=== PATIENT | male | born 1960 | race Caucasian/White ===

== ENCOUNTER 2017-04-15 17:19 | Inpatient (IN) | payer BC ==
[~2017-04-15] VITALS: Ht 175.3 cm; Wt 55.8 kg
[2017-04-15 16:30] VITALS: BP 117/72
[2017-04-15] MEDS ORDERED: IPRATROPIUM/ALBUTEROL 0.5-3(2.5)MG/3ML NEB HHN PRN (17:45)
[2017-04-15 18:00] VITALS: BP 141/78
[2017-04-15] MEDS: LABETALOL 5MG/ML SYR 20 MG/4 ML SYRINGE IV SCH ×2 (18:30→23:33)
[2017-04-15 20:00] VITALS: BP 142/74
[2017-04-15] MEDS: IPRATROPIUM/ALBUTEROL 0.5-3(2.5)MG/3ML NEB HHN SCH (20:50)
[2017-04-15 22:00] VITALS: BP 151/82
[2017-04-15 22:08] LABS: PROTHROMBIN TIME 10.7 sec (9.4-11.6)
[2017-04-15 22:13] LABS: HEMATOCRIT 25.6 % (42.0-52.0); HEMOGLOBIN 8.4 g/dL (14.0-18.0); MEAN CORPUSCULAR HEMOGLOBIN 30.5 pg (28.0-32.0); MEAN CORPUSCULAR VOLUME 92.6 fL (80.0-94.0); PLATELET 241 x1000/uL (130-400); RED BLOOD CELL COUNT 2.76 mill/uL (4.7-6.1)
[2017-04-15] MEDS: LACTATED RINGERS 1,000 ML IV SCH (22:24)
[2017-04-15 22:30] LABS: CARBON DIOXIDE 34 mEq/L (21-32); CHLORIDE 109 mEq/L (98-107)
[2017-04-16] VITALS (49 sets, daily range): BP systolic 123–215; BP diastolic 56–121
[2017-04-16] MEDS: IPRATROPIUM/ALBUTEROL 0.5-3(2.5)MG/3ML NEB HHN SCH ×4 (02:19→20:20)
[2017-04-16] MEDS: HYDRALAZINE 20MG/ML VIAL IV PRN ×4 (03:26→20:17)
[2017-04-16] MEDS: LABETALOL 5MG/ML SYR 20 MG/4 ML SYRINGE IV SCH ×4 (06:24→23:56)
[2017-04-16] MEDS ORDERED: LIDOCAINE HCL 1%/EPI 1:200,000 30 ML VIAL ONE (08:15)
[2017-04-16] MEDS ORDERED: GELATIN SPONGE,ABSORBABLE SZ 100 ONE (08:16)
[2017-04-16] MEDS ORDERED: BACITRACIN ZINC 15GM TUBE TOP ONE (08:16)
[2017-04-16] MEDS ORDERED: THROMBIN (BOVINE) 5000 UNITS/VIAL TOP ONE (08:17)
[2017-04-16] MEDS ORDERED: LACTATED RINGERS 3,000 ML IV ONE (08:17)
[2017-04-16] MEDS ORDERED: NORMAL SALINE 0.9% 10 ML SYR ONE (08:17)
[2017-04-16] MEDS ORDERED: BACITRACIN 50,000 UNITS/VIAL ONE (08:17)
[2017-04-16] MEDS: PANTOPRAZOLE SODIUM 40 MG/VIAL IV SCH (09:37)
[2017-04-16 10:26] LABS: CLARITY URINE CLEAR (CLEAR); COLOR URINE YELLOW (YELLOW); KETONES URINE NEGATIVE (NEGATIVE); LEUKOCYTE ESTERASE URINE NEGATIVE (NEGATIVE); NITRITE URINE NEGATIVE (NEGATIVE); OCCULT BLOOD URINE NEGATIVE (NEGATIVE); PH URINE 7.5 (4.5-8.0); PROTEIN URINE 2+ (NEGATIVE); SPECIFIC GRAVITY URINE 1.016 (1.005-1.030); UROBILINOGEN URINE 0.2 E.U./dL (0.2-1.0)
[2017-04-16] MEDS ORDERED: ONDANSETRON HCL 4MG/2ML VIAL IV PRN (10:45)
[2017-04-16] MEDS ORDERED: FENTANYL CITRATE/PF 50MCG/ML 5ML VIAL ONE (11:02)
[2017-04-16] MEDS ORDERED: MIDAZOLAM HCL 2 MG/2 ML VIAL ONE (11:03)
[2017-04-16 11:09] LABS: BG BASE EXCESS 7.9 mmol/L (-2.0-2.0); BG CARBOXYHEMOGLOBIN 0.3 % (0.5-1.5); BG DEOXYHEMOGLOBIN 4.5 % (0.0-5.0); BG FRACTION INSPIRED OXYGEN 35; BG HCO3 ACT 32.3 mmol/L (22.0-26.0); BG METHEMOGLOBIN 0.2 % (0.0-1.5); BG OXYGEN SATURATION 95.5 % (92.0-98.5); BG PCO2 44.8 mmHg (35.0-45.0); BG PH 7.476 (7.350-7.450); BG PO2 79.3 mmHg (75.0-100.0); BG PRESSURE SUPPORT 14; BG SAMPLE SITE LEFT BRACHIAL; BG TIDAL VOLUME(mL) 500 mL; BG VENT MODE VENT - SIMV; BG VENT RATE 10 set
[2017-04-16] MEDS ORDERED: PHENYTOIN SODIUM 250MG/5ML VIAL IV ONE (11:58)
[2017-04-16] MEDS ORDERED: CEFAZOLIN SODIUM 1000MG/VIAL ONE (12:18)
[2017-04-16] MEDS ORDERED: ROCURONIUM BROMIDE 10MG/ML VIAL 5ML IV ONE (12:18)
[2017-04-16] MEDS ORDERED: PROPOFOL 200MG/20ML VIAL IV ONE ×2 (12:49→14:00)
[2017-04-16] MEDS ORDERED: NICARDIPINE 50 MG in SODIUM CHLORIDE 0.9% 230 ML IV PRN (13:30)
[2017-04-16] MEDS ORDERED: MORPHINE SULFATE 2 MG/ML CPJ (NOT FOR IM USE) IV PRN ×3 (13:30→15:45)
[2017-04-16] MEDS ORDERED: CEFAZOLIN SODIUM 1000MG/VIAL IV SCH (14:00)
[2017-04-16] MEDS: PHENYTOIN SODIUM 100MG/2ML VIAL IV SCH ×2 (14:15→21:22)
[2017-04-16] MEDS: NICARDIPINE 100 MG in SODIUM CHLORIDE 0.9% 60 ML IV PRN ×2 (14:20→20:28)
[2017-04-16] MEDS: LACTATED RINGERS 1,000 ML IV SCH (14:33)
[2017-04-16 14:50] LABS: GLUCOSE CSF 56 mg/dL (41-75)
[2017-04-16] MEDS: LABETALOL 5MG/ML SYR 20 MG/4 ML SYRINGE IV NR ×2 (16:28→18:13)
[2017-04-16] MEDS: MORPHINE SULFATE 2 MG/ML CPJ (NOT FOR IM USE) IV PRN ×2 (17:53→21:21)
[2017-04-16] MEDS: MICONAZOLE NITRATE 2% OINT 71GM TOP SCH (21:21)
[2017-04-16] MEDS: CEFAZOLIN 1000MG PREMIX 50 ML IV SCH (21:22)
[2017-04-17] VITALS (69 sets, daily range): BP systolic 104–179; BP diastolic 58–89
[2017-04-17] MEDS: IPRATROPIUM/ALBUTEROL 0.5-3(2.5)MG/3ML NEB HHN SCH ×4 (00:20→21:49)
[2017-04-17] MEDS: HYDRALAZINE 20MG/ML VIAL IV PRN ×4 (01:48→16:49)
[2017-04-17] MEDS: MORPHINE SULFATE 2 MG/ML CPJ (NOT FOR IM USE) IV PRN ×5 (02:33→19:56)
[2017-04-17] MEDS: NICARDIPINE 100 MG in SODIUM CHLORIDE 0.9% 60 ML IV PRN ×3 (05:00→23:12)
[2017-04-17] MEDS: CEFAZOLIN 1000MG PREMIX 50 ML IV SCH ×3 (05:03→21:53)
[2017-04-17] MEDS: PHENYTOIN SODIUM 100MG/2ML VIAL IV SCH ×3 (05:03→21:53)
[2017-04-17] MEDS: LABETALOL 5MG/ML SYR 20 MG/4 ML SYRINGE IV SCH (05:04)
[2017-04-17 05:47] LABS: BASOPHILS % 0.5 % (0.0-2.0); EOSINOPHILS % 0.3 % (0.0-5.0); HEMATOCRIT. 29.1 % (42.0-52.0); HEMOGLOBIN. 9.5 g/dL (14.0-18.0); LYMPHOCYTES % 8.3 % (20.0-50.0); MEAN CORPUSCULAR HEMOGLOBIN 30.4 pg (28.0-32.0); MEAN CORPUSCULAR VOLUME 93.2 fL (80.0-94.0); MEAN PLATELET VOLUME 10.3 fl (7.4-10.4); MONOCYTES % 5.4 % (2.0-8.0); NEUTROPHILS % 85.5 % (40.0-76.0); PLATELET 271 x1000/uL (130-400); RED BLOOD CELL COUNT 3.12 mill/uL (4.7-6.1); RED CELL DISTRIBUTION WIDTH 15.2 % (11.6-14.6)
[2017-04-17 06:12] LABS: CARBON DIOXIDE 30 mEq/L (21-32); CHLORIDE 109 mEq/L (98-107); TOTAL IRON BINDING CAPACITY 211 ug/dL (250-450)
[2017-04-17 07:36] LABS: BG BASE EXCESS 2.3 mmol/L (-2.0-2.0); BG CARBOXYHEMOGLOBIN 0.2 % (0.5-1.5); BG DEOXYHEMOGLOBIN 5.8 % (0.0-5.0); BG FRACTION INSPIRED OXYGEN 35; BG HCO3 ACT 27.1 mmol/L (22.0-26.0); BG METHEMOGLOBIN 0.3 % (0.0-1.5); BG OXYGEN SATURATION 94.2 % (92.0-98.5); BG OXYHEMOGLOBIN 93.7 % (94.0-97.0); BG PH 7.418 (7.350-7.450); BG PO2 75.9 mmHg (75.0-100.0); BG SAMPLE SITE A-LINE; BG TIDAL VOLUME(mL) 500 mL; BG TOTAL HEMOGLOBIN 10.3 g/dL (12.0-18.0); BG VENT MODE VENT - A/C; BG VENT RATE 12 set
[2017-04-17] MEDS: MICONAZOLE NITRATE 2% OINT 71GM TOP SCH ×2 (08:16→21:59)
[2017-04-17] MEDS: PANTOPRAZOLE SODIUM 40 MG/VIAL IV SCH (08:16)
[2017-04-17] MEDS: LACTATED RINGERS 1,000 ML IV SCH ×2 (08:17→16:29)
[2017-04-17] MEDS: AMLODIPINE 10MG TABLET PO SCH (10:58)
[2017-04-17] MEDS: LABETALOL HCL 300MG TABLET PO SCH ×2 (11:56→21:53)
[2017-04-17] MEDS: HYDRALAZINE HCL 25MG TABLET PO SCH ×2 (13:30→22:39)
[2017-04-17] MEDS ORDERED: NICARDIPINE 100 MG in SODIUM CHLORIDE 0.9% 60 ML IV PRN (16:30)
[2017-04-17] MEDS: MINOXIDIL 2.5MG TABLET PEG SCH (17:12)
[2017-04-17] MEDS ORDERED: PHENYTOIN SODIUM 500 MG in SODIUM CHLORIDE 0.9% 50 ML IV NR (19:00)
[2017-04-18] VITALS (96 sets, daily range): BP systolic 115–171; BP diastolic 60–117
[2017-04-18] MEDS: MINOXIDIL 2.5MG TABLET PEG SCH ×4 (00:28→18:29)
[2017-04-18] MEDS: MORPHINE SULFATE 2 MG/ML CPJ (NOT FOR IM USE) IV PRN ×3 (00:32→10:54)
[2017-04-18] MEDS: HYDRALAZINE 20MG/ML VIAL IV PRN ×3 (02:05→21:11)
[2017-04-18] MEDS: IPRATROPIUM/ALBUTEROL 0.5-3(2.5)MG/3ML NEB HHN SCH ×4 (03:50→20:08)
[2017-04-18] MEDS: PHENYTOIN SODIUM 100MG/2ML VIAL IV SCH ×3 (05:16→21:11)
[2017-04-18] MEDS: CEFAZOLIN 1000MG PREMIX 50 ML IV SCH ×2 (05:17→13:09)
[2017-04-18 05:35] LABS: HEMOGLOBIN. 9.2 g/dL (14.0-18.0); MEAN CORPUSCULAR HEMOGLOBIN 30.5 pg (28.0-32.0); MEAN CORPUSCULAR VOLUME 93.1 fL (80.0-94.0); MEAN PLATELET VOLUME 9.9 fl (7.4-10.4); PLATELET 312 x1000/uL (130-400); RED BLOOD CELL COUNT 3.01 mill/uL (4.7-6.1); RED CELL DISTRIBUTION WIDTH 15.3 % (11.6-14.6)
[2017-04-18] MEDS: LACTATED RINGERS 1,000 ML IV SCH (05:38)
[2017-04-18] MEDS: HYDRALAZINE HCL 25MG TABLET PO SCH (05:39)
[2017-04-18 05:53] LABS: CARBON DIOXIDE 30 mEq/L (21-32); CHLORIDE 110 mEq/L (98-107)
[2017-04-18] MEDS: PANTOPRAZOLE SODIUM 40 MG/VIAL IV SCH (08:00)
[2017-04-18] MEDS: AMLODIPINE 10MG TABLET PO SCH (08:00)
[2017-04-18] MEDS: LABETALOL HCL 300MG TABLET PO SCH (08:01)
[2017-04-18] MEDS: MICONAZOLE NITRATE 2% OINT 71GM TOP SCH ×2 (08:02→21:14)
[2017-04-18 09:01] LABS: BG CARBOXYHEMOGLOBIN 0.2 % (0.5-1.5); BG DEOXYHEMOGLOBIN 2.1 % (0.0-5.0); BG HCO3 ACT 31.8 mmol/L (22.0-26.0); BG METHEMOGLOBIN 0.1 % (0.0-1.5); BG OXYGEN SATURATION 97.9 % (92.0-98.5); BG OXYHEMOGLOBIN 97.6 % (94.0-97.0); BG PCO2 46.8 mmHg (35.0-45.0); BG PO2 116.1 mmHg (75.0-100.0); BG SAMPLE SITE RIGHT RADIAL; BG TIDAL VOLUME(mL) 500 mL; BG TOTAL HEMOGLOBIN 9.9 g/dL (12.0-18.0); BG VENT MODE VENT - SIMV; BG VENT RATE 10 set
[2017-04-18] MEDS: NICARDIPINE 100 MG in SODIUM CHLORIDE 0.9% 60 ML IV PRN ×2 (11:18→23:31)
[2017-04-18 11:36] LABS: PLATELET ESTIMATE NORMAL
[2017-04-18] MEDS: HYDRALAZINE HCL 50MG TABLET PEG SCH ×2 (13:09→18:29)
[2017-04-18] MEDS ORDERED: ASPI-1159 GT (14:04)
[2017-04-18] MEDS ORDERED: HJ10 SUBCUT (14:04)
[2017-04-18] MEDS ORDERED: HYDR-4134 GT (14:04)
[2017-04-18] MEDS ORDERED: IPRA0.2S51 IH (14:04)
[2017-04-18] MEDS ORDERED: ATOR-2 GT (14:04)
[2017-04-18] MEDS ORDERED: LABE100T GT (14:04)
[2017-04-18] MEDS ORDERED: FERR-63 GT (14:04)
[2017-04-18] MEDS ORDERED: LEVE500T19 GT (14:04)
[2017-04-18] MEDS ORDERED: CLON0.3T GT (14:04)
[2017-04-18] MEDS ORDERED: ASCO500C6 GT (14:04)
[2017-04-18] MEDS ORDERED: LORA1TAB GT (14:07)
[2017-04-18] MEDS ORDERED: NYST30PO9 TP (14:20)
[2017-04-18] MEDS ORDERED: MELA3TAB GT (14:20)
[2017-04-18] MEDS ORDERED: ONDA4SOL2 IVP (14:20)
[2017-04-18] MEDS ORDERED: PANT40TA4 IVP (14:20)
[2017-04-18] MEDS ORDERED: QUET200T GT (14:20)
[2017-04-18] MEDS ORDERED: MINO2.5T19 GT (14:20)
[2017-04-18] MEDS ORDERED: MULT-1146 PO (14:20)
[2017-04-18] MEDS ORDERED: TAMS0.4C31 GT (14:26)
[2017-04-18] MEDS ORDERED: RISP1TAB26 GT (14:26)
[2017-04-18] MEDS ORDERED: ZNOU TOP (14:26)
[2017-04-18] MEDS ORDERED: VANC125C11 GT (14:26)
[2017-04-18] MEDS ORDERED: HYDRALAZINE HCL 50MG TABLET PEG SCH (18:00)
[2017-04-18] MEDS: ACETAMINOPHEN 650MG/20.3ML UDC PO PRN (18:30)
[2017-04-18] MEDS: LABETALOL HCL 300MG TABLET PEG SCH (18:30)
[2017-04-19] VITALS (97 sets, daily range): BP systolic 127–171; BP diastolic 62–84
[2017-04-19] MEDS: LABETALOL HCL 300MG TABLET PEG SCH ×2 (00:19→06:04)
[2017-04-19] MEDS: MINOXIDIL 2.5MG TABLET PEG SCH ×5 (00:19→23:42)
[2017-04-19] MEDS: HYDRALAZINE HCL 50MG TABLET PEG SCH ×5 (00:32→23:42)
[2017-04-19] MEDS: MORPHINE SULFATE 2 MG/ML CPJ (NOT FOR IM USE) IV PRN ×3 (00:48→13:47)
[2017-04-19] MEDS: IPRATROPIUM/ALBUTEROL 0.5-3(2.5)MG/3ML NEB HHN SCH ×4 (01:43→20:17)
[2017-04-19] MEDS: HYDRALAZINE 20MG/ML VIAL IV PRN ×2 (03:22→09:53)
[2017-04-19 05:17] LABS: EOSINOPHILS % 0.3 % (0.0-5.0); HEMATOCRIT. 26.7 % (42.0-52.0); HEMOGLOBIN. 8.7 g/dL (14.0-18.0); LYMPHOCYTES % 10.6 % (20.0-50.0); MEAN CORPUSCULAR HEMOGLOBIN 30.8 pg (28.0-32.0); MEAN CORPUSCULAR VOLUME 94.2 fL (80.0-94.0); MONOCYTES % 5.3 % (2.0-8.0); NEUTROPHILS % 82.8 % (40.0-76.0); PLATELET 279 x1000/uL (130-400); RED BLOOD CELL COUNT 2.84 mill/uL (4.7-6.1); RED CELL DISTRIBUTION WIDTH 15.5 % (11.6-14.6)
[2017-04-19] MEDS: PHENYTOIN SODIUM 100MG/2ML VIAL IV SCH (06:04)
[2017-04-19 06:05] LABS: CARBON DIOXIDE 30 mEq/L (21-32); CHLORIDE 110 mEq/L (98-107)
[2017-04-19] MEDS: LACTATED RINGERS 1,000 ML IV SCH (06:17)
[2017-04-19] MEDS: PANTOPRAZOLE SODIUM 40 MG/VIAL IV SCH (08:18)
[2017-04-19] MEDS: AMLODIPINE 10MG TABLET PO SCH (08:19)
[2017-04-19] MEDS: MICONAZOLE NITRATE 2% OINT 71GM TOP SCH ×2 (08:23→21:30)
[2017-04-19] MEDS: ACETAMINOPHEN 650MG/20.3ML UDC PO PRN (09:53)
[2017-04-19] MEDS: LABETALOL HCL 200MG TABLET PEG SCH ×3 (12:04→23:41)
[2017-04-19] MEDS: NICARDIPINE 100 MG in SODIUM CHLORIDE 0.9% 60 ML IV PRN (12:26)
[2017-04-19] MEDS ORDERED: POTASSIUM CHLORIDE 20MEQ/PACKET GT NR (14:10)
[2017-04-19] MEDS: PHENYTOIN 100 MG/4 ML UDC GT SCH ×2 (14:58→21:29)
[2017-04-19] MEDS ORDERED: TERAZOSIN HCL 1MG CAPSULE PO SCH (21:00)
[2017-04-20] VITALS (90 sets, daily range): BP systolic 116–185; BP diastolic 63–92
[2017-04-20] MEDS: NICARDIPINE 100 MG in SODIUM CHLORIDE 0.9% 60 ML IV PRN ×2 (01:04→19:41)
[2017-04-20] MEDS: IPRATROPIUM/ALBUTEROL 0.5-3(2.5)MG/3ML NEB HHN SCH ×4 (01:41→20:23)
[2017-04-20] MEDS: LACTATED RINGERS 1,000 ML IV SCH (03:13)
[2017-04-20 05:22] LABS: BASOPHILS % 0.4 % (0.0-2.0); EOSINOPHILS % 0.8 % (0.0-5.0); HEMATOCRIT. 26.9 % (42.0-52.0); HEMOGLOBIN. 8.7 g/dL (14.0-18.0); LYMPHOCYTES % 11.5 % (20.0-50.0); MEAN CORPUSCULAR HEMOGLOBIN 30.5 pg (28.0-32.0); MEAN CORPUSCULAR VOLUME 94.6 fL (80.0-94.0); MEAN PLATELET VOLUME 9.6 fl (7.4-10.4); MONOCYTES % 6.5 % (2.0-8.0); NEUTROPHILS % 80.8 % (40.0-76.0); PLATELET 271 x1000/uL (130-400); RED BLOOD CELL COUNT 2.85 mill/uL (4.7-6.1); RED CELL DISTRIBUTION WIDTH 15.6 % (11.6-14.6)
[2017-04-20] MEDS: LABETALOL HCL 200MG TABLET PEG SCH ×3 (05:28→18:07)
[2017-04-20] MEDS: PHENYTOIN 100 MG/4 ML UDC GT SCH ×3 (05:28→22:34)
[2017-04-20] MEDS: MINOXIDIL 2.5MG TABLET PEG SCH ×3 (05:28→18:08)
[2017-04-20] MEDS: HYDRALAZINE HCL 50MG TABLET PEG SCH ×3 (05:28→18:07)
[2017-04-20 05:48] LABS: CARBON DIOXIDE 33 mEq/L (21-32); CHLORIDE 110 mEq/L (98-107)
[2017-04-20] MEDS: MICONAZOLE NITRATE 2% OINT 71GM TOP SCH ×2 (09:40→22:34)
[2017-04-20] MEDS: AMLODIPINE 10MG TABLET PO SCH (09:41)
[2017-04-20] MEDS: PANTOPRAZOLE SODIUM 40 MG/VIAL IV SCH (09:42)
[2017-04-20] MEDS: HYDRALAZINE 20MG/ML VIAL IV PRN (15:13)
[2017-04-20] MEDS ORDERED: THROAT LOZENGES-BENZOCAINE/MENTH/CETYLPYRD CL LOZENGES MM PRN (17:15)
[2017-04-20] MEDS: TERAZOSIN HCL 1MG CAPSULE PO SCH (18:07)
[2017-04-20] MEDS: CLONIDINE HCL 0.3MG/24HR PATCH TD SCH (18:08)
[2017-04-21] VITALS (98 sets, daily range): BP systolic 124–200; BP diastolic 62–97
[2017-04-21] MEDS: MINOXIDIL 2.5MG TABLET PEG SCH ×4 (00:39→21:07)
[2017-04-21] MEDS: LABETALOL HCL 200MG TABLET PEG SCH ×5 (00:39→23:12)
[2017-04-21] MEDS: HYDRALAZINE HCL 50MG TABLET PEG SCH ×5 (00:42→23:11)
[2017-04-21] MEDS: IPRATROPIUM/ALBUTEROL 0.5-3(2.5)MG/3ML NEB HHN SCH ×4 (01:38→20:27)
[2017-04-21] MEDS: HYDRALAZINE 20MG/ML VIAL IV PRN (03:22)
[2017-04-21] MEDS: NICARDIPINE 100 MG in SODIUM CHLORIDE 0.9% 60 ML IV PRN (04:41)
[2017-04-21] MEDS: TERAZOSIN HCL 1MG CAPSULE PO SCH ×2 (05:11→17:29)
[2017-04-21] MEDS: PHENYTOIN 100 MG/4 ML UDC GT SCH ×3 (05:12→21:07)
[2017-04-21 05:53] LABS: BASOPHILS % 0.4 % (0.0-2.0); EOSINOPHILS % 1.2 % (0.0-5.0); HEMOGLOBIN. 8.7 g/dL (14.0-18.0); LYMPHOCYTES % 13.7 % (20.0-50.0); MEAN CORPUSCULAR HEMOGLOBIN 30.2 pg (28.0-32.0); MEAN CORPUSCULAR VOLUME 93.3 fL (80.0-94.0); MEAN PLATELET VOLUME 9.5 fl (7.4-10.4); MONOCYTES % 5.9 % (2.0-8.0); NEUTROPHILS % 78.8 % (40.0-76.0); PLATELET 276 x1000/uL (130-400); RED BLOOD CELL COUNT 2.89 mill/uL (4.7-6.1); RED CELL DISTRIBUTION WIDTH 15.2 % (11.6-14.6)
[2017-04-21 06:27] LABS: CARBON DIOXIDE 33 mEq/L (21-32); CHLORIDE 109 mEq/L (98-107)
[2017-04-21] MEDS: ACETAMINOPHEN 650MG/20.3ML UDC PO PRN (08:12)
[2017-04-21] MEDS: PANTOPRAZOLE SODIUM 40 MG/VIAL IV SCH (08:12)
[2017-04-21] MEDS: MAGNESIUM HYDROXIDE 400MG/5ML 30ML UDC PO PRN (08:12)
[2017-04-21] MEDS: AMLODIPINE 10MG TABLET PO SCH (08:13)
[2017-04-21] MEDS: MICONAZOLE NITRATE 2% OINT 71GM TOP SCH ×2 (08:13→21:09)
[2017-04-21] MEDS ORDERED: SPIRONOLACTONE 25MG TABLET GT NR (17:00)
[2017-04-21] MEDS ORDERED: HYDROCHLOROTHIAZIDE 25MG TABLET GT NR (18:00)
[2017-04-22] VITALS (92 sets, daily range): BP systolic 123–176; BP diastolic 23–96
[2017-04-22] MEDS: NICARDIPINE 100 MG in SODIUM CHLORIDE 0.9% 60 ML IV PRN ×2 (00:15→12:01)
[2017-04-22] MEDS: PHENYTOIN 100 MG/4 ML UDC GT SCH ×3 (05:11→21:19)
[2017-04-22] MEDS: MINOXIDIL 2.5MG TABLET PEG SCH ×2 (05:11→14:17)
[2017-04-22] MEDS: HYDRALAZINE HCL 50MG TABLET PEG SCH ×3 (05:12→17:14)
[2017-04-22] MEDS: TERAZOSIN HCL 1MG CAPSULE PO SCH ×2 (05:12→17:13)
[2017-04-22] MEDS: LABETALOL HCL 200MG TABLET PEG SCH ×3 (05:12→17:14)
[2017-04-22 06:22] LABS: BASOPHILS % 0.7 % (0.0-2.0); EOSINOPHILS % 2.1 % (0.0-5.0); HEMATOCRIT. 26.5 % (42.0-52.0); HEMOGLOBIN. 8.7 g/dL (14.0-18.0); LYMPHOCYTES % 14.9 % (20.0-50.0); MEAN CORPUSCULAR HEMOGLOBIN 30.6 pg (28.0-32.0); MEAN CORPUSCULAR VOLUME 93.9 fL (80.0-94.0); MEAN PLATELET VOLUME 9.7 fl (7.4-10.4); MONOCYTES % 6.3 % (2.0-8.0); PLATELET 272 x1000/uL (130-400); RED BLOOD CELL COUNT 2.83 mill/uL (4.7-6.1); RED CELL DISTRIBUTION WIDTH 15.6 % (11.6-14.6)
[2017-04-22 06:46] LABS: CARBON DIOXIDE 35 mEq/L (21-32); CHLORIDE 106 mEq/L (98-107)
[2017-04-22] MEDS: IPRATROPIUM/ALBUTEROL 0.5-3(2.5)MG/3ML NEB HHN SCH ×3 (08:02→20:30)
[2017-04-22] MEDS: AMLODIPINE 10MG TABLET PO SCH (09:00)
[2017-04-22] MEDS: FAMOTIDINE 20MG TABLET PO SCH ×2 (09:00→21:19)
[2017-04-22] MEDS: SPIRONOLACTONE 25MG TABLET PO SCH (09:00)
[2017-04-22] MEDS: MICONAZOLE NITRATE 2% OINT 71GM TOP SCH ×2 (09:00→21:18)
[2017-04-22] MEDS: HYDROCHLOROTHIAZIDE 25MG TABLET PO SCH (09:05)
[2017-04-22] MEDS: HYDRALAZINE 20MG/ML VIAL IV PRN ×2 (10:07→15:16)
[2017-04-22] MEDS ORDERED: MINOXIDIL 2.5MG TABLET PEG SCH (18:00)
[2017-04-22] MEDS ORDERED: TERAZOSIN HCL 1MG CAPSULE PO SCH (18:00)
[2017-04-23] VITALS (75 sets, daily range): BP systolic 121–181; BP diastolic 66–95
[2017-04-23] MEDS: MINOXIDIL 2.5MG TABLET PEG SCH ×5 (00:30→23:53)
[2017-04-23] MEDS: LABETALOL HCL 200MG TABLET PEG SCH ×5 (00:31→23:53)
[2017-04-23] MEDS: HYDRALAZINE HCL 50MG TABLET PEG SCH ×5 (00:31→23:53)
[2017-04-23] MEDS: NICARDIPINE 100 MG in SODIUM CHLORIDE 0.9% 60 ML IV PRN (02:02)
[2017-04-23] MEDS: IPRATROPIUM/ALBUTEROL 0.5-3(2.5)MG/3ML NEB HHN SCH ×4 (02:09→19:50)
[2017-04-23] MEDS: PHENYTOIN 100 MG/4 ML UDC GT SCH ×3 (05:15→21:18)
[2017-04-23 05:55] LABS: BASOPHILS % 0.8 % (0.0-2.0); EOSINOPHILS % 1.7 % (0.0-5.0); HEMATOCRIT. 26.1 % (42.0-52.0); HEMOGLOBIN. 8.7 g/dL (14.0-18.0); LYMPHOCYTES % 14.1 % (20.0-50.0); MEAN CORPUSCULAR HEMOGLOBIN 30.8 pg (28.0-32.0); MEAN CORPUSCULAR VOLUME 92.5 fL (80.0-94.0); MEAN PLATELET VOLUME 9.7 fl (7.4-10.4); NEUTROPHILS % 76.4 % (40.0-76.0); PLATELET 246 x1000/uL (130-400); RED BLOOD CELL COUNT 2.82 mill/uL (4.7-6.1); RED CELL DISTRIBUTION WIDTH 15.8 % (11.6-14.6)
[2017-04-23] MEDS ORDERED: TERAZOSIN HCL 1MG CAPSULE PO SCH (06:00)
[2017-04-23 06:34] LABS: CARBON DIOXIDE 35 mEq/L (21-32); CHLORIDE 103 mEq/L (98-107)
[2017-04-23] MEDS: HYDROCHLOROTHIAZIDE 25MG TABLET PO SCH (08:57)
[2017-04-23] MEDS: AMLODIPINE 10MG TABLET PO SCH (08:57)
[2017-04-23] MEDS: SPIRONOLACTONE 25MG TABLET PO SCH (08:57)
[2017-04-23] MEDS: FAMOTIDINE 20MG TABLET PO SCH ×2 (08:57→21:18)
[2017-04-23] MEDS: MICONAZOLE NITRATE 2% OINT 71GM TOP SCH ×2 (09:00→21:18)
[2017-04-23] MEDS: HYDRALAZINE 20MG/ML VIAL IV PRN ×2 (10:19→14:21)
[2017-04-23] MEDS: TERAZOSIN HCL 1MG CAPSULE PO SCH ×2 (17:31→23:54)
[2017-04-24] VITALS (46 sets, daily range): BP systolic 109–176; BP diastolic 58–106
[2017-04-24] MEDS: HYDRALAZINE 20MG/ML VIAL IV PRN (04:04)
[2017-04-24] MEDS: TERAZOSIN HCL 1MG CAPSULE PO SCH ×4 (05:04→23:19)
[2017-04-24] MEDS: MINOXIDIL 2.5MG TABLET PEG SCH ×4 (05:05→23:18)
[2017-04-24] MEDS: HYDRALAZINE HCL 50MG TABLET PEG SCH ×4 (05:05→23:19)
[2017-04-24] MEDS: PHENYTOIN 100 MG/4 ML UDC GT SCH ×3 (05:05→21:05)
[2017-04-24] MEDS: LABETALOL HCL 200MG TABLET PEG SCH ×4 (05:05→23:18)
[2017-04-24 05:29] LABS: BASOPHILS % 0.8 % (0.0-2.0); HEMATOCRIT. 26.1 % (42.0-52.0); HEMOGLOBIN. 8.6 g/dL (14.0-18.0); LYMPHOCYTES % 10.7 % (20.0-50.0); MEAN CORPUSCULAR HEMOGLOBIN 30.8 pg (28.0-32.0); MEAN CORPUSCULAR VOLUME 93.4 fL (80.0-94.0); MEAN PLATELET VOLUME 9.4 fl (7.4-10.4); MONOCYTES % 5.8 % (2.0-8.0); NEUTROPHILS % 81.7 % (40.0-76.0); PLATELET 225 x1000/uL (130-400); RED BLOOD CELL COUNT 2.79 mill/uL (4.7-6.1); RED CELL DISTRIBUTION WIDTH 15.5 % (11.6-14.6)
[2017-04-24 05:44] LABS: CARBON DIOXIDE 35 mEq/L (21-32); CHLORIDE 103 mEq/L (98-107)
[2017-04-24] MEDS: IPRATROPIUM/ALBUTEROL 0.5-3(2.5)MG/3ML NEB HHN SCH ×3 (08:21→19:47)
[2017-04-24] MEDS: AMLODIPINE 10MG TABLET PO SCH (08:58)
[2017-04-24] MEDS: FAMOTIDINE 20MG TABLET PO SCH ×2 (08:58→21:05)
[2017-04-24] MEDS: SPIRONOLACTONE 25MG TABLET PO SCH (08:59)
[2017-04-24] MEDS: HYDROCHLOROTHIAZIDE 25MG TABLET PO SCH (08:59)
[2017-04-24] MEDS: MICONAZOLE NITRATE 2% OINT 71GM TOP SCH ×2 (09:02→21:00)
[2017-04-24] MEDS: ACETAMINOPHEN 650MG/20.3ML UDC PO PRN (11:39)
[2017-04-25] VITALS (33 sets, daily range): BP systolic 116–171; BP diastolic 62–93
[2017-04-25] MEDS: IPRATROPIUM/ALBUTEROL 0.5-3(2.5)MG/3ML NEB HHN SCH ×3 (01:54→20:03)
[2017-04-25] MEDS: PHENYTOIN 100 MG/4 ML UDC GT SCH ×3 (05:20→21:22)
[2017-04-25] MEDS: MINOXIDIL 2.5MG TABLET PEG SCH ×3 (05:21→18:16)
[2017-04-25] MEDS: TERAZOSIN HCL 1MG CAPSULE PO SCH ×3 (05:21→18:17)
[2017-04-25] MEDS: LABETALOL HCL 200MG TABLET PEG SCH ×3 (05:21→18:17)
[2017-04-25] MEDS: HYDRALAZINE HCL 50MG TABLET PEG SCH ×3 (05:21→18:16)
[2017-04-25 05:28] LABS: EOSINOPHILS % 2.4 % (0.0-5.0); HEMATOCRIT. 25.3 % (42.0-52.0); HEMOGLOBIN. 8.2 g/dL (14.0-18.0); LYMPHOCYTES % 19.9 % (20.0-50.0); MEAN CORPUSCULAR HEMOGLOBIN 30.8 pg (28.0-32.0); MEAN CORPUSCULAR VOLUME 94.5 fL (80.0-94.0); MEAN PLATELET VOLUME 9.9 fl (7.4-10.4); NEUTROPHILS % 68.7 % (40.0-76.0); PLATELET 218 x1000/uL (130-400); RED BLOOD CELL COUNT 2.67 mill/uL (4.7-6.1); RED CELL DISTRIBUTION WIDTH 16.6 % (11.6-14.6)
[2017-04-25 05:42] LABS: CARBON DIOXIDE 35 mEq/L (21-32); CHLORIDE 105 mEq/L (98-107)
[2017-04-25] MEDS: SPIRONOLACTONE 25MG TABLET PO SCH (10:03)
[2017-04-25] MEDS: HYDROCHLOROTHIAZIDE 25MG TABLET PO SCH (10:03)
[2017-04-25] MEDS: FAMOTIDINE 20MG TABLET PO SCH ×2 (10:04→21:23)
[2017-04-25] MEDS: AMLODIPINE 10MG TABLET PO SCH (10:04)
[2017-04-25] MEDS: MICONAZOLE NITRATE 2% OINT 71GM TOP SCH ×2 (13:21→21:22)
[2017-04-26] VITALS (14 sets, daily range): BP systolic 117–163; BP diastolic 59–85
[2017-04-26] MEDS: MINOXIDIL 2.5MG TABLET PEG SCH ×4 (00:11→17:25)
[2017-04-26] MEDS: TERAZOSIN HCL 1MG CAPSULE PO SCH ×4 (00:11→17:26)
[2017-04-26] MEDS: LABETALOL HCL 200MG TABLET PEG SCH ×4 (00:13→17:26)
[2017-04-26] MEDS: HYDRALAZINE HCL 50MG TABLET PEG SCH ×4 (00:14→17:25)
[2017-04-26] MEDS: ACETAMINOPHEN 650MG/20.3ML UDC PO PRN (01:11)
[2017-04-26] MEDS: IPRATROPIUM/ALBUTEROL 0.5-3(2.5)MG/3ML NEB HHN SCH ×3 (01:54→13:39)
[2017-04-26] MEDS: PHENYTOIN 100 MG/4 ML UDC GT SCH ×2 (06:27→13:15)
[2017-04-26] MEDS: AMLODIPINE 10MG TABLET PO SCH (08:36)
[2017-04-26] MEDS: FAMOTIDINE 20MG TABLET PO SCH ×2 (08:36→21:16)
[2017-04-26] MEDS: HYDROCHLOROTHIAZIDE 25MG TABLET PO SCH (08:36)
[2017-04-26] MEDS: MICONAZOLE NITRATE 2% OINT 71GM TOP SCH ×2 (08:37→21:17)
[2017-04-26] MEDS: SPIRONOLACTONE 25MG TABLET PO SCH (08:37)
[2017-04-26 14:53] LABS: BG BASE EXCESS 8.8 mmol/L (-2.0-2.0); BG CARBOXYHEMOGLOBIN 0.3 % (0.5-1.5); BG DEOXYHEMOGLOBIN 1.4 % (0.0-5.0); BG FRACTION INSPIRED OXYGEN 35; BG HCO3 ACT 34.4 mmol/L (22.0-26.0); BG METHEMOGLOBIN 0.3 % (0.0-1.5); BG OXYGEN SATURATION 98.6 % (92.0-98.5); BG PCO2 53.9 mmHg (35.0-45.0); BG PH 7.423 (7.350-7.450); BG PO2 144.8 mmHg (75.0-100.0); BG PRESSURE SUPPORT 12; BG SAMPLE SITE RIGHT RADIAL; BG TIDAL VOLUME(mL) 500 mL; BG TOTAL HEMOGLOBIN 9.1 g/dL (12.0-18.0); BG VENT MODE VENT - SIMV; BG VENT RATE 8 set
[2017-04-26] MEDS: ALBUTEROL (0.083%) 2.5MG/3ML NEB HHN SCH ×2 (16:18→20:30)
[2017-04-26] MEDS ORDERED: PHENYTOIN 100 MG/4 ML UDC NG NR (17:45)
[2017-04-26] MEDS ORDERED: LORAZEPAM 2MG/ML CPJ IV PRN (17:45)
[2017-04-27] VITALS (12 sets, daily range): BP systolic 132–178; BP diastolic 64–90
[2017-04-27] MEDS: MINOXIDIL 2.5MG TABLET PEG SCH ×4 (00:02→17:14)
[2017-04-27] MEDS: LABETALOL HCL 200MG TABLET PEG SCH ×4 (00:03→17:13)
[2017-04-27] MEDS: TERAZOSIN HCL 1MG CAPSULE PO SCH ×2 (00:03→05:36)
[2017-04-27] MEDS: HYDRALAZINE HCL 50MG TABLET PEG SCH ×4 (00:03→17:13)
[2017-04-27] MEDS: ALBUTEROL (0.083%) 2.5MG/3ML NEB HHN SCH ×6 (00:20→20:41)
[2017-04-27 06:12] LABS: BASOPHILS % 0.9 % (0.0-2.0); EOSINOPHILS % 2.2 % (0.0-5.0); HEMATOCRIT. 26.7 % (42.0-52.0); HEMOGLOBIN. 8.8 g/dL (14.0-18.0); LYMPHOCYTES % 21.5 % (20.0-50.0); MEAN CORPUSCULAR HEMOGLOBIN 30.9 pg (28.0-32.0); MEAN CORPUSCULAR VOLUME 94.2 fL (80.0-94.0); MEAN PLATELET VOLUME 9.8 fl (7.4-10.4); MONOCYTES % 9.8 % (2.0-8.0); NEUTROPHILS % 65.6 % (40.0-76.0); PLATELET 191 x1000/uL (130-400); RED BLOOD CELL COUNT 2.84 mill/uL (4.7-6.1); RED CELL DISTRIBUTION WIDTH 16.1 % (11.6-14.6)
[2017-04-27 06:35] LABS: CARBON DIOXIDE 37 mEq/L (21-32); CHLORIDE 104 mEq/L (98-107)
[2017-04-27 08:27] LABS: BG BASE EXCESS 11.7 mmol/L (-2.0-2.0); BG CARBOXYHEMOGLOBIN 0.3 % (0.5-1.5); BG DEOXYHEMOGLOBIN 1.5 % (0.0-5.0); BG FRACTION INSPIRED OXYGEN 35; BG HCO3 ACT 37.3 mmol/L (22.0-26.0); BG METHEMOGLOBIN 0.2 % (0.0-1.5); BG OXYGEN SATURATION 98.5 % (92.0-98.5); BG PCO2 55.5 mmHg (35.0-45.0); BG PH 7.445 (7.350-7.450); BG PO2 142.7 mmHg (75.0-100.0); BG PRESSURE SUPPORT 12; BG SAMPLE SITE RIGHT RADIAL; BG TIDAL VOLUME(mL) 500 mL; BG TOTAL HEMOGLOBIN 9.1 g/dL (12.0-18.0); BG VENT MODE VENT - SIMV; BG VENT RATE 8 set
[2017-04-27] MEDS: PHENYTOIN 100 MG/4 ML UDC GT SCH ×2 (08:58→17:13)
[2017-04-27] MEDS: HYDROCHLOROTHIAZIDE 25MG TABLET PO SCH (08:59)
[2017-04-27] MEDS: FAMOTIDINE 20MG TABLET PO SCH ×2 (08:59→21:36)
[2017-04-27] MEDS: AMLODIPINE 10MG TABLET PO SCH (08:59)
[2017-04-27] MEDS: SPIRONOLACTONE 25MG TABLET PO SCH (08:59)
[2017-04-27] MEDS: CLONIDINE HCL 0.3MG/24HR PATCH TD SCH (09:05)
[2017-04-27] MEDS: TERAZOSIN HCL 1MG CAPSULE PEG SCH ×2 (12:48→17:13)
[2017-04-27] MEDS: MICONAZOLE NITRATE 2% OINT 71GM TOP SCH ×2 (15:25→21:36)
[2017-04-28] VITALS (15 sets, daily range): BP systolic 112–163; BP diastolic 55–81
[2017-04-28] MEDS: HYDRALAZINE HCL 50MG TABLET PEG SCH ×4 (00:51→17:14)
[2017-04-28] MEDS: LABETALOL HCL 200MG TABLET PEG SCH ×4 (00:52→17:13)
[2017-04-28] MEDS: MINOXIDIL 2.5MG TABLET PEG SCH ×4 (00:52→17:13)
[2017-04-28] MEDS: TERAZOSIN HCL 1MG CAPSULE PEG SCH ×4 (00:55→17:13)
[2017-04-28] MEDS: ALBUTEROL (0.083%) 2.5MG/3ML NEB HHN SCH ×7 (00:57→23:28)
[2017-04-28] MEDS: ACETAMINOPHEN 650MG/20.3ML UDC PO PRN ×2 (01:10→23:23)
[2017-04-28 06:54] LABS: BASOPHILS % 0.7 % (0.0-2.0); EOSINOPHILS % 1.5 % (0.0-5.0); HEMOGLOBIN. 8.3 g/dL (14.0-18.0); LYMPHOCYTES % 16.2 % (20.0-50.0); MEAN CORPUSCULAR HEMOGLOBIN 31.3 pg (28.0-32.0); MEAN CORPUSCULAR VOLUME 93.9 fL (80.0-94.0); MEAN PLATELET VOLUME 9.4 fl (7.4-10.4); MONOCYTES % 9.8 % (2.0-8.0); NEUTROPHILS % 71.8 % (40.0-76.0); PLATELET 176 x1000/uL (130-400); RED BLOOD CELL COUNT 2.66 mill/uL (4.7-6.1); RED CELL DISTRIBUTION WIDTH 15.9 % (11.6-14.6)
[2017-04-28 07:49] LABS: CARBON DIOXIDE 38 mEq/L (21-32); CHLORIDE 106 mEq/L (98-107)
[2017-04-28] MEDS: PHENYTOIN 100 MG/4 ML UDC GT SCH ×2 (08:59→17:12)
[2017-04-28] MEDS: HYDROCHLOROTHIAZIDE 25MG TABLET PO SCH (08:59)
[2017-04-28] MEDS: SPIRONOLACTONE 25MG TABLET PO SCH (08:59)
[2017-04-28] MEDS: FAMOTIDINE 20MG TABLET PO SCH ×2 (09:00→21:07)
[2017-04-28] MEDS: AMLODIPINE 10MG TABLET PO SCH (09:00)
[2017-04-28] MEDS: MICONAZOLE NITRATE 2% OINT 71GM TOP SCH ×2 (09:00→21:07)
[2017-04-28 10:16] LABS: BG BASE EXCESS 13.4 mmol/L (-2.0-2.0); BG CARBOXYHEMOGLOBIN 0.3 % (0.5-1.5); BG DEOXYHEMOGLOBIN 1.8 % (0.0-5.0); BG FRACTION INSPIRED OXYGEN 35; BG HCO3 ACT 39.4 mmol/L (22.0-26.0); BG METHEMOGLOBIN 0.1 % (0.0-1.5); BG OXYGEN SATURATION 98.2 % (92.0-98.5); BG OXYHEMOGLOBIN 97.8 % (94.0-97.0); BG PCO2 58.9 mmHg (35.0-45.0); BG PH 7.443 (7.350-7.450); BG PO2 133.6 mmHg (75.0-100.0); BG PRESSURE SUPPORT 10; BG SAMPLE SITE RIGHT RADIAL; BG TIDAL VOLUME(mL) 500 mL; BG TOTAL HEMOGLOBIN 9.7 g/dL (12.0-18.0); BG VENT MODE VENT - SIMV; BG VENT RATE 6 set
[2017-04-29] VITALS (12 sets, daily range): BP systolic 113–161; BP diastolic 51–83
[2017-04-29] MEDS: MINOXIDIL 2.5MG TABLET PEG SCH ×4 (01:10→18:10)
[2017-04-29] MEDS: LABETALOL HCL 200MG TABLET PEG SCH ×4 (01:10→18:11)
[2017-04-29] MEDS: HYDRALAZINE HCL 50MG TABLET PEG SCH ×4 (01:10→18:10)
[2017-04-29] MEDS: TERAZOSIN HCL 1MG CAPSULE PEG SCH ×4 (01:11→18:10)
[2017-04-29] MEDS: ALBUTEROL (0.083%) 2.5MG/3ML NEB HHN SCH ×5 (03:36→20:17)
[2017-04-29] MEDS: ACETAMINOPHEN 650MG/20.3ML UDC PO PRN ×2 (05:40→13:08)
[2017-04-29 06:45] LABS: BASOPHILS % 1.1 % (0.0-2.0); EOSINOPHILS % 1.4 % (0.0-5.0); HEMATOCRIT. 26.5 % (42.0-52.0); HEMOGLOBIN. 8.7 g/dL (14.0-18.0); MEAN CORPUSCULAR HEMOGLOBIN 31.5 pg (28.0-32.0); MEAN CORPUSCULAR VOLUME 95.3 fL (80.0-94.0); MEAN PLATELET VOLUME 9.7 fl (7.4-10.4); MONOCYTES % 9.6 % (2.0-8.0); NEUTROPHILS % 69.9 % (40.0-76.0); PLATELET 173 x1000/uL (130-400); RED BLOOD CELL COUNT 2.78 mill/uL (4.7-6.1); RED CELL DISTRIBUTION WIDTH 16.5 % (11.6-14.6)
[2017-04-29 08:02] LABS: CARBON DIOXIDE 38 mEq/L (21-32); CHLORIDE 105 mEq/L (98-107)
[2017-04-29] MEDS: AMLODIPINE 10MG TABLET PO SCH (09:16)
[2017-04-29] MEDS: SPIRONOLACTONE 25MG TABLET PO SCH (09:17)
[2017-04-29] MEDS: HYDROCHLOROTHIAZIDE 25MG TABLET PO SCH (09:17)
[2017-04-29] MEDS: MICONAZOLE NITRATE 2% OINT 71GM TOP SCH ×2 (09:17→21:24)
[2017-04-29] MEDS: FAMOTIDINE 20MG TABLET PO SCH ×2 (09:17→21:22)
[2017-04-29] MEDS: PHENYTOIN 100 MG/4 ML UDC GT SCH ×2 (09:23→18:10)
[2017-04-30] VITALS (12 sets, daily range): BP systolic 137–165; BP diastolic 68–83
[2017-04-30] MEDS: ALBUTEROL (0.083%) 2.5MG/3ML NEB HHN SCH ×6 (00:25→20:50)
[2017-04-30] MEDS: TERAZOSIN HCL 1MG CAPSULE PEG SCH ×5 (00:35→23:41)
[2017-04-30] MEDS: HYDRALAZINE HCL 50MG TABLET PEG SCH ×5 (00:35→23:41)
[2017-04-30] MEDS: MINOXIDIL 2.5MG TABLET PEG SCH ×5 (00:36→23:40)
[2017-04-30] MEDS: LABETALOL HCL 200MG TABLET PEG SCH ×5 (06:18→23:41)
[2017-04-30 07:10] LABS: CARBON DIOXIDE 37 mEq/L (21-32); CHLORIDE 105 mEq/L (98-107)
[2017-04-30 07:39] LABS: EOSINOPHILS % 2.3 % (0.0-5.0); HEMATOCRIT. 26.2 % (42.0-52.0); HEMOGLOBIN. 8.6 g/dL (14.0-18.0); LYMPHOCYTES % 18.9 % (20.0-50.0); MEAN CORPUSCULAR HEMOGLOBIN 30.8 pg (28.0-32.0); MEAN CORPUSCULAR VOLUME 94.4 fL (80.0-94.0); MEAN PLATELET VOLUME 9.5 fl (7.4-10.4); NEUTROPHILS % 69.8 % (40.0-76.0); PLATELET 161 x1000/uL (130-400); RED BLOOD CELL COUNT 2.78 mill/uL (4.7-6.1)
[2017-04-30 08:50] LABS: BG BASE EXCESS 11.6 mmol/L (-2.0-2.0); BG CARBOXYHEMOGLOBIN 0.3 % (0.5-1.5); BG DEOXYHEMOGLOBIN 1.3 % (0.0-5.0); BG FRACTION INSPIRED OXYGEN 35; BG HCO3 ACT 37.6 mmol/L (22.0-26.0); BG METHEMOGLOBIN 0.4 % (0.0-1.5); BG OXYGEN SATURATION 98.7 % (92.0-98.5); BG PCO2 58.4 mmHg (35.0-45.0); BG PH 7.427 (7.350-7.450); BG PO2 147.3 mmHg (75.0-100.0); BG PRESSURE SUPPORT 8; BG SAMPLE SITE RIGHT RADIAL; BG TIDAL VOLUME(mL) 500 mL; BG TOTAL HEMOGLOBIN 9.5 g/dL (12.0-18.0); BG VENT MODE VENT - SIMV; BG VENT RATE 6 set
[2017-04-30] MEDS: FAMOTIDINE 20MG TABLET PO SCH ×2 (08:50→21:50)
[2017-04-30] MEDS: AMLODIPINE 10MG TABLET PO SCH (08:50)
[2017-04-30] MEDS: PHENYTOIN 100 MG/4 ML UDC GT SCH ×2 (08:50→17:44)
[2017-04-30] MEDS: SPIRONOLACTONE 25MG TABLET PO SCH (08:59)
[2017-04-30] MEDS: HYDROCHLOROTHIAZIDE 25MG TABLET PO SCH (09:12)
[2017-04-30] MEDS: MICONAZOLE NITRATE 2% OINT 71GM TOP SCH ×2 (09:12→21:50)
[2017-05-01] VITALS (12 sets, daily range): BP systolic 103–159; BP diastolic 30–80
[2017-05-01] MEDS: ALBUTEROL (0.083%) 2.5MG/3ML NEB HHN SCH ×6 (00:35→20:37)
[2017-05-01] MEDS: HYDRALAZINE HCL 50MG TABLET PEG SCH ×4 (05:00→23:02)
[2017-05-01] MEDS: LABETALOL HCL 200MG TABLET PEG SCH ×4 (05:01→23:03)
[2017-05-01] MEDS: MINOXIDIL 2.5MG TABLET PEG SCH ×4 (05:01→23:04)
[2017-05-01] MEDS: TERAZOSIN HCL 1MG CAPSULE PEG SCH ×4 (05:03→23:03)
[2017-05-01 07:29] LABS: BASOPHILS % 0.8 % (0.0-2.0); CHLORIDE 104 mEq/L (98-107); EOSINOPHILS % 2.3 % (0.0-5.0); HEMATOCRIT. 26.7 % (42.0-52.0); HEMOGLOBIN. 8.7 g/dL (14.0-18.0); LYMPHOCYTES % 16.3 % (20.0-50.0); MEAN CORPUSCULAR HEMOGLOBIN 31.2 pg (28.0-32.0); MEAN CORPUSCULAR VOLUME 95.1 fL (80.0-94.0); MEAN PLATELET VOLUME 9.8 fl (7.4-10.4); MONOCYTES % 9.3 % (2.0-8.0); NEUTROPHILS % 71.3 % (40.0-76.0); PLATELET 161 x1000/uL (130-400); RED CELL DISTRIBUTION WIDTH 16.3 % (11.6-14.6)
[2017-05-01 07:58] LABS: CARBON DIOXIDE 34 mEq/L (21-32)
[2017-05-01] MEDS: PHENYTOIN 100 MG/4 ML UDC GT SCH ×2 (09:08→18:34)
[2017-05-01] MEDS: AMLODIPINE 10MG TABLET PO SCH (09:08)
[2017-05-01] MEDS: SPIRONOLACTONE 25MG TABLET PO SCH (09:08)
[2017-05-01] MEDS: HYDROCHLOROTHIAZIDE 25MG TABLET PO SCH (09:08)
[2017-05-01] MEDS: FAMOTIDINE 20MG TABLET PO SCH ×2 (09:08→21:00)
[2017-05-01] MEDS: ACETAMINOPHEN 650MG/20.3ML UDC PO PRN (12:30)
[2017-05-02] VITALS (14 sets, daily range): BP systolic 106–163; BP diastolic 61–86
[2017-05-02] MEDS: ALBUTEROL (0.083%) 2.5MG/3ML NEB HHN SCH ×6 (00:22→20:15)
[2017-05-02] MEDS: LABETALOL HCL 200MG TABLET PEG SCH ×3 (06:07→17:26)
[2017-05-02] MEDS: HYDRALAZINE HCL 50MG TABLET PEG SCH ×3 (06:08→17:26)
[2017-05-02] MEDS: TERAZOSIN HCL 1MG CAPSULE PEG SCH ×3 (06:08→17:25)
[2017-05-02] MEDS: MINOXIDIL 2.5MG TABLET PEG SCH ×3 (06:08→17:25)
[2017-05-02] MEDS: PHENYTOIN 100 MG/4 ML UDC GT SCH ×2 (10:06→17:26)
[2017-05-02] MEDS: HYDROCHLOROTHIAZIDE 25MG TABLET PO SCH (10:07)
[2017-05-02] MEDS: SPIRONOLACTONE 25MG TABLET PO SCH (10:07)
[2017-05-02] MEDS: FAMOTIDINE 20MG TABLET PO SCH ×2 (10:07→20:55)
[2017-05-02] MEDS: AMLODIPINE 10MG TABLET PO SCH (10:07)
[2017-05-02] MEDS: ACETAMINOPHEN 650MG/20.3ML UDC PO PRN (10:58)
[2017-05-03] VITALS (20 sets, daily range): BP systolic 97–160; BP diastolic 52–83
[2017-05-03] MEDS: ALBUTEROL (0.083%) 2.5MG/3ML NEB HHN SCH ×7 (00:03→23:05)
[2017-05-03] MEDS: LABETALOL HCL 200MG TABLET PEG SCH ×4 (00:57→17:35)
[2017-05-03] MEDS: MINOXIDIL 2.5MG TABLET PEG SCH ×4 (00:57→17:36)
[2017-05-03] MEDS: HYDRALAZINE HCL 50MG TABLET PEG SCH ×4 (00:58→17:37)
[2017-05-03] MEDS: TERAZOSIN HCL 1MG CAPSULE PEG SCH ×4 (01:02→17:35)
[2017-05-03 06:22] LABS: BASOPHILS % 0.6 % (0.0-2.0); EOSINOPHILS % 0.8 % (0.0-5.0); HEMATOCRIT. 27.3 % (42.0-52.0); HEMOGLOBIN. 8.9 g/dL (14.0-18.0); LYMPHOCYTES % 9.9 % (20.0-50.0); MEAN CORPUSCULAR HEMOGLOBIN 30.9 pg (28.0-32.0); MEAN CORPUSCULAR VOLUME 94.4 fL (80.0-94.0); MEAN PLATELET VOLUME 9.4 fl (7.4-10.4); NEUTROPHILS % 83.7 % (40.0-76.0); PLATELET 141 x1000/uL (130-400); RED BLOOD CELL COUNT 2.89 mill/uL (4.7-6.1); RED CELL DISTRIBUTION WIDTH 16.9 % (11.6-14.6)
[2017-05-03 07:04] LABS: CARBON DIOXIDE 36 mEq/L (21-32); CHLORIDE 108 mEq/L (98-107)
[2017-05-03] MEDS: MAGNESIUM HYDROXIDE 400MG/5ML 30ML UDC PO PRN (08:55)
[2017-05-03] MEDS: HYDROCHLOROTHIAZIDE 25MG TABLET PO SCH (08:56)
[2017-05-03] MEDS: SPIRONOLACTONE 25MG TABLET PO SCH (08:56)
[2017-05-03] MEDS: PHENYTOIN 100 MG/4 ML UDC GT SCH ×2 (08:56→17:35)
[2017-05-03] MEDS: FAMOTIDINE 20MG TABLET PO SCH ×2 (08:56→20:20)
[2017-05-03] MEDS: AMLODIPINE 10MG TABLET PO SCH (08:56)
[2017-05-03] MEDS: ACETAMINOPHEN 650MG/20.3ML UDC PO PRN (21:51)
[2017-05-04] VITALS (22 sets, daily range): BP systolic 98–162; BP diastolic 48–83
[2017-05-04] MEDS: TERAZOSIN HCL 1MG CAPSULE PEG SCH ×4 (00:57→17:34)
[2017-05-04] MEDS: LABETALOL HCL 200MG TABLET PEG SCH ×4 (00:57→17:34)
[2017-05-04] MEDS: MINOXIDIL 2.5MG TABLET PEG SCH ×4 (00:57→17:34)
[2017-05-04] MEDS: HYDRALAZINE HCL 50MG TABLET PEG SCH ×4 (00:58→17:34)
[2017-05-04] MEDS: ALBUTEROL (0.083%) 2.5MG/3ML NEB HHN SCH ×5 (03:08→20:28)
[2017-05-04] MEDS: ACETAMINOPHEN 650MG/20.3ML UDC PO PRN ×2 (06:27→21:34)
[2017-05-04] MEDS: HYDROCHLOROTHIAZIDE 25MG TABLET PO SCH (09:15)
[2017-05-04] MEDS: AMLODIPINE 10MG TABLET PO SCH (09:15)
[2017-05-04] MEDS: FAMOTIDINE 20MG TABLET PO SCH ×2 (09:15→21:34)
[2017-05-04] MEDS: SPIRONOLACTONE 25MG TABLET PO SCH (09:24)
[2017-05-04] MEDS: PHENYTOIN 100 MG/4 ML UDC GT SCH ×2 (09:24→17:44)
[2017-05-04] MEDS: CLONIDINE HCL 0.3MG/24HR PATCH TD SCH (11:21)
[2017-05-05] VITALS (12 sets, daily range): BP systolic 110–153; BP diastolic 58–83
[2017-05-05] MEDS: HYDRALAZINE HCL 50MG TABLET PEG SCH ×4 (00:19→18:20)
[2017-05-05] MEDS: MINOXIDIL 2.5MG TABLET PEG SCH ×4 (00:20→18:25)
[2017-05-05] MEDS: LABETALOL HCL 200MG TABLET PEG SCH ×4 (00:20→18:20)
[2017-05-05] MEDS: TERAZOSIN HCL 1MG CAPSULE PEG SCH ×4 (00:20→18:19)
[2017-05-05] MEDS: ALBUTEROL (0.083%) 2.5MG/3ML NEB HHN SCH ×6 (00:22→20:30)
[2017-05-05 05:21] LABS: BASOPHILS % 0.6 % (0.0-2.0); EOSINOPHILS % 2.3 % (0.0-5.0); HEMATOCRIT. 28.1 % (42.0-52.0); HEMOGLOBIN. 9.2 g/dL (14.0-18.0); LYMPHOCYTES % 13.6 % (20.0-50.0); MEAN CORPUSCULAR HEMOGLOBIN 31.6 pg (28.0-32.0); MEAN CORPUSCULAR VOLUME 96.1 fL (80.0-94.0); MEAN PLATELET VOLUME 9.9 fl (7.4-10.4); MONOCYTES % 7.7 % (2.0-8.0); NEUTROPHILS % 75.8 % (40.0-76.0); PLATELET 149 x1000/uL (130-400); RED BLOOD CELL COUNT 2.92 mill/uL (4.7-6.1); RED CELL DISTRIBUTION WIDTH 17.2 % (11.6-14.6)
[2017-05-05 06:50] LABS: CARBON DIOXIDE 34 mEq/L (21-32); CHLORIDE 112 mEq/L (98-107)
[2017-05-05] MEDS: PHENYTOIN 100 MG/4 ML UDC GT SCH ×2 (10:00→18:25)
[2017-05-05] MEDS: SPIRONOLACTONE 25MG TABLET PO SCH (10:00)
[2017-05-05] MEDS: ACETAMINOPHEN 650MG/20.3ML UDC PO PRN (10:01)
[2017-05-05] MEDS: AMLODIPINE 10MG TABLET PO SCH (10:01)
[2017-05-05] MEDS: HYDROCHLOROTHIAZIDE 25MG TABLET PO SCH (10:01)
[2017-05-05] MEDS: FAMOTIDINE 20MG TABLET PO SCH ×2 (10:01→20:41)
[2017-05-05] MEDS ORDERED: POTASSIUM CHLORIDE 20MEQ/PACKET PEG NR (10:30)
[2017-05-05] MEDS ORDERED: POTASSIUM CHLORIDE 20MEQ TABLET SR PO ONE (10:30)
[2017-05-06] VITALS (13 sets, daily range): BP systolic 123–167; BP diastolic 69–87
[2017-05-06] MEDS: TERAZOSIN HCL 1MG CAPSULE PEG SCH ×5 (00:08→23:19)
[2017-05-06] MEDS: LABETALOL HCL 200MG TABLET PEG SCH ×5 (00:08→23:20)
[2017-05-06] MEDS: MINOXIDIL 2.5MG TABLET PEG SCH ×5 (00:09→23:20)
[2017-05-06] MEDS: HYDRALAZINE HCL 50MG TABLET PEG SCH ×5 (00:09→23:20)
[2017-05-06] MEDS: ALBUTEROL (0.083%) 2.5MG/3ML NEB HHN SCH ×6 (00:24→21:51)
[2017-05-06 06:12] LABS: BASOPHILS % 0.6 % (0.0-2.0); EOSINOPHILS % 3.8 % (0.0-5.0); HEMATOCRIT. 25.9 % (42.0-52.0); HEMOGLOBIN. 8.5 g/dL (14.0-18.0); MEAN CORPUSCULAR HEMOGLOBIN 31.3 pg (28.0-32.0); MEAN CORPUSCULAR VOLUME 95.7 fL (80.0-94.0); MONOCYTES % 8.4 % (2.0-8.0); NEUTROPHILS % 69.2 % (40.0-76.0); PLATELET 154 x1000/uL (130-400); RED CELL DISTRIBUTION WIDTH 16.7 % (11.6-14.6)
[2017-05-06 07:10] LABS: CARBON DIOXIDE 32 mEq/L (21-32); CHLORIDE 112 mEq/L (98-107)
[2017-05-06] MEDS ORDERED: HYDROCHLOROTHIAZIDE 12.5MG CAPSULE PO SCH (09:00)
[2017-05-06] MEDS: PHENYTOIN 100 MG/4 ML UDC GT SCH ×2 (09:39→17:50)
[2017-05-06] MEDS: FAMOTIDINE 20MG TABLET PO SCH ×2 (09:43→21:02)
[2017-05-06] MEDS: SPIRONOLACTONE 25MG TABLET PO SCH (09:43)
[2017-05-06] MEDS: AMLODIPINE 10MG TABLET PO SCH (09:44)
[2017-05-06] MEDS ORDERED: POTASSIUM CHLORIDE 20MEQ/PACKET PEG NR (12:00)
[2017-05-07] VITALS (12 sets, daily range): BP systolic 112–151; BP diastolic 60–78
[2017-05-07] MEDS: ALBUTEROL (0.083%) 2.5MG/3ML NEB HHN SCH ×6 (00:33→20:23)
[2017-05-07] MEDS: HYDRALAZINE HCL 50MG TABLET PEG SCH ×4 (05:22→23:13)
[2017-05-07] MEDS: MINOXIDIL 2.5MG TABLET PEG SCH ×4 (05:23→23:13)
[2017-05-07] MEDS: LABETALOL HCL 200MG TABLET PEG SCH ×4 (05:23→23:12)
[2017-05-07] MEDS: TERAZOSIN HCL 1MG CAPSULE PEG SCH ×4 (06:00→23:12)
[2017-05-07 08:13] LABS: CARBON DIOXIDE 31 mEq/L (21-32); CHLORIDE 114 mEq/L (98-107)
[2017-05-07] MEDS: PHENYTOIN 100 MG/4 ML UDC GT SCH ×2 (09:14→17:37)
[2017-05-07] MEDS: FAMOTIDINE 20MG TABLET PO SCH ×2 (09:16→20:46)
[2017-05-07] MEDS: SPIRONOLACTONE 25MG TABLET PO SCH (09:16)
[2017-05-07] MEDS: AMLODIPINE 10MG TABLET PO SCH (09:17)
[2017-05-08] VITALS (12 sets, daily range): BP systolic 104–165; BP diastolic 54–90
[2017-05-08] MEDS: ALBUTEROL (0.083%) 2.5MG/3ML NEB HHN SCH ×6 (00:36→19:54)
[2017-05-08] MEDS: TERAZOSIN HCL 1MG CAPSULE PEG SCH ×4 (05:53→23:25)
[2017-05-08] MEDS: MINOXIDIL 2.5MG TABLET PEG SCH ×4 (05:53→23:27)
[2017-05-08] MEDS: HYDRALAZINE HCL 50MG TABLET PEG SCH ×4 (05:54→23:26)
[2017-05-08 06:26] LABS: BASOPHILS % 0.6 % (0.0-2.0); EOSINOPHILS % 3.2 % (0.0-5.0); HEMATOCRIT. 26.6 % (42.0-52.0); HEMOGLOBIN. 8.8 g/dL (14.0-18.0); LYMPHOCYTES % 19.3 % (20.0-50.0); MEAN CORPUSCULAR HEMOGLOBIN 31.6 pg (28.0-32.0); MEAN CORPUSCULAR VOLUME 95.1 fL (80.0-94.0); MEAN PLATELET VOLUME 9.9 fl (7.4-10.4); MONOCYTES % 8.9 % (2.0-8.0); PLATELET 167 x1000/uL (130-400); RED BLOOD CELL COUNT 2.79 mill/uL (4.7-6.1); RED CELL DISTRIBUTION WIDTH 16.6 % (11.6-14.6)
[2017-05-08 07:18] LABS: CARBON DIOXIDE 32 mEq/L (21-32); CHLORIDE 115 mEq/L (98-107)
[2017-05-08] MEDS: PHENYTOIN 100 MG/4 ML UDC GT SCH ×2 (08:59→16:48)
[2017-05-08] MEDS: AMLODIPINE 10MG TABLET PO SCH (08:59)
[2017-05-08] MEDS: FAMOTIDINE 20MG TABLET PO SCH ×2 (08:59→20:53)
[2017-05-08] MEDS: SPIRONOLACTONE 25MG TABLET PO SCH (08:59)
[2017-05-08] MEDS: LABETALOL HCL 200MG TABLET PEG SCH ×3 (13:33→23:26)
[2017-05-09] VITALS (12 sets, daily range): BP systolic 103–152; BP diastolic 55–77
[2017-05-09] MEDS: ALBUTEROL (0.083%) 2.5MG/3ML NEB HHN SCH ×5 (00:01→19:59)
[2017-05-09 06:09] LABS: BASOPHILS % 0.7 % (0.0-2.0); EOSINOPHILS % 2.3 % (0.0-5.0); HEMATOCRIT. 25.5 % (42.0-52.0); HEMOGLOBIN. 8.5 g/dL (14.0-18.0); LYMPHOCYTES % 18.3 % (20.0-50.0); MEAN CORPUSCULAR HEMOGLOBIN 31.6 pg (28.0-32.0); MEAN CORPUSCULAR VOLUME 95.1 fL (80.0-94.0); MONOCYTES % 7.7 % (2.0-8.0); PLATELET 178 x1000/uL (130-400); RED BLOOD CELL COUNT 2.69 mill/uL (4.7-6.1); RED CELL DISTRIBUTION WIDTH 16.8 % (11.6-14.6)
[2017-05-09] MEDS: MINOXIDIL 2.5MG TABLET PEG SCH ×3 (06:48→17:22)
[2017-05-09] MEDS: TERAZOSIN HCL 1MG CAPSULE PEG SCH ×3 (06:48→17:22)
[2017-05-09] MEDS: LABETALOL HCL 200MG TABLET PEG SCH ×3 (06:49→17:21)
[2017-05-09] MEDS: HYDRALAZINE HCL 50MG TABLET PEG SCH ×3 (06:49→17:22)
[2017-05-09 07:31] LABS: CARBON DIOXIDE 32 mEq/L (21-32); CHLORIDE 113 mEq/L (98-107)
[2017-05-09] MEDS: ACETAMINOPHEN 650MG/20.3ML UDC PO PRN ×2 (09:35→17:20)
[2017-05-09] MEDS: SPIRONOLACTONE 25MG TABLET PO SCH (09:35)
[2017-05-09] MEDS: PHENYTOIN 100 MG/4 ML UDC GT SCH ×2 (09:35→17:21)
[2017-05-09] MEDS: FAMOTIDINE 20MG TABLET PO SCH ×2 (09:35→21:02)
[2017-05-09] MEDS: AMLODIPINE 10MG TABLET PO SCH (09:35)
[2017-05-09] MEDS ORDERED: PHENYTOIN 100 MG/4 ML UDC NG NR (16:15)
[2017-05-10] VITALS (12 sets, daily range): BP systolic 112–154; BP diastolic 53–83
[2017-05-10] MEDS: ALBUTEROL (0.083%) 2.5MG/3ML NEB HHN SCH ×6 (00:09→20:11)
[2017-05-10] MEDS: MINOXIDIL 2.5MG TABLET PEG SCH ×4 (00:26→17:51)
[2017-05-10] MEDS: TERAZOSIN HCL 1MG CAPSULE PEG SCH ×4 (00:26→17:50)
[2017-05-10] MEDS: LABETALOL HCL 200MG TABLET PEG SCH ×4 (00:27→17:51)
[2017-05-10] MEDS: HYDRALAZINE HCL 50MG TABLET PEG SCH ×4 (00:27→17:51)
[2017-05-10 05:56] LABS: CARBON DIOXIDE 32 mEq/L (21-32); CHLORIDE 114 mEq/L (98-107)
[2017-05-10 06:13] LABS: BASOPHILS % 0.7 % (0.0-2.0); EOSINOPHILS % 1.4 % (0.0-5.0); HEMATOCRIT. 27.2 % (42.0-52.0); HEMOGLOBIN. 9.1 g/dL (14.0-18.0); LYMPHOCYTES % 11.9 % (20.0-50.0); MEAN CORPUSCULAR HEMOGLOBIN 32.1 pg (28.0-32.0); MEAN CORPUSCULAR VOLUME 95.7 fL (80.0-94.0); MONOCYTES % 6.5 % (2.0-8.0); NEUTROPHILS % 79.5 % (40.0-76.0); PLATELET 194 x1000/uL (130-400); RED BLOOD CELL COUNT 2.84 mill/uL (4.7-6.1); RED CELL DISTRIBUTION WIDTH 16.4 % (11.6-14.6)
[2017-05-10] MEDS: PHENYTOIN 100 MG/4 ML UDC GT SCH ×2 (09:28→17:49)
[2017-05-10] MEDS: SPIRONOLACTONE 25MG TABLET PO SCH (09:29)
[2017-05-10] MEDS: FAMOTIDINE 20MG TABLET PO SCH ×2 (09:29→20:14)
[2017-05-10] MEDS: AMLODIPINE 10MG TABLET PO SCH (09:29)
[2017-05-10] MEDS: ACETAMINOPHEN 650MG/20.3ML UDC PO PRN (20:14)
[2017-05-11] VITALS (40 sets, daily range): BP systolic 65–181; BP diastolic 39–128
[2017-05-11] MEDS: LABETALOL HCL 200MG TABLET PEG SCH ×4 (00:10→17:38)
[2017-05-11] MEDS: HYDRALAZINE HCL 50MG TABLET PEG SCH ×4 (00:10→17:37)
[2017-05-11] MEDS: TERAZOSIN HCL 1MG CAPSULE PEG SCH ×4 (00:11→17:37)
[2017-05-11] MEDS: MINOXIDIL 2.5MG TABLET PEG SCH ×4 (00:11→17:37)
[2017-05-11] MEDS: ALBUTEROL (0.083%) 2.5MG/3ML NEB HHN SCH ×6 (00:28→20:16)
[2017-05-11] MEDS: FAMOTIDINE 20MG TABLET PO SCH ×2 (08:58→21:32)
[2017-05-11] MEDS: PHENYTOIN 100 MG/4 ML UDC GT SCH ×2 (08:58→17:09)
[2017-05-11] MEDS: SPIRONOLACTONE 25MG TABLET PO SCH (08:59)
[2017-05-11] MEDS: AMLODIPINE 10MG TABLET PO SCH (08:59)
[2017-05-11] MEDS: CLONIDINE HCL 0.3MG/24HR PATCH TD SCH (08:59)
[2017-05-11 15:07] LABS: CHLORIDE 113 mEq/L (98-107)
[2017-05-11] MEDS ORDERED: SODIUM CHLORIDE 0.9% 10ML VIAL ONE (15:11)
[2017-05-11] MEDS ORDERED: IOHEXOL-350 100 ML BOTTLE ONE (15:11)
[2017-05-11 15:12] LABS: CARBON DIOXIDE 29 mEq/L (21-32)
[2017-05-11 15:14] LABS: BASOPHILS % 0.4 % (0.0-2.0); EOSINOPHILS % 0.6 % (0.0-5.0); HEMATOCRIT. 26.4 % (42.0-52.0); HEMOGLOBIN. 8.4 g/dL (14.0-18.0); LYMPHOCYTES % 11.5 % (20.0-50.0); MEAN CORPUSCULAR HEMOGLOBIN 30.6 pg (28.0-32.0); MEAN CORPUSCULAR VOLUME 95.9 fL (80.0-94.0); MEAN PLATELET VOLUME 9.9 fl (7.4-10.4); MONOCYTES % 2.8 % (2.0-8.0); NEUTROPHILS % 84.7 % (40.0-76.0); PLATELET 221 x1000/uL (130-400); RED BLOOD CELL COUNT 2.76 mill/uL (4.7-6.1)
[2017-05-11 15:25] LABS: CREATINE KINASE MB FRACTION 28.7 ng/mL (0.5-3.6)
[2017-05-11] MEDS ORDERED: NOREPINEPHRINE 4 MG in DEXT 5% WATER 246 ML IV PRN (15:30)
[2017-05-11 15:39] LABS: BG BASE EXCESS 4.3 mmol/L (-2.0-2.0); BG CARBOXYHEMOGLOBIN 0.3 % (0.5-1.5); BG METHEMOGLOBIN 0.3 % (0.0-1.5); BG OXYHEMOGLOBIN 97.4 % (94.0-97.0); BG PCO2 50.5 mmHg (35.0-45.0); BG PH 7.391 (7.350-7.450); BG PO2 118.5 mmHg (75.0-100.0); BG SAMPLE SITE RIGHT RADIAL; BG TIDAL VOLUME(mL) 500 mL; BG TOTAL HEMOGLOBIN 9.8 g/dL (12.0-18.0); BG VENT MODE VENT - A/C; BG VENT RATE 12 set
[2017-05-11] MEDS: DEXT 5%/0.45% NACL 1000ML 1,000 ML IV SCH (16:06)
[2017-05-11] MEDS ORDERED: ASPIRIN 325MG TABLET PEG NR (16:30)
[2017-05-11 17:58] LABS: CLARITY URINE CLOUDY (CLEAR); COLOR URINE YELLOW (YELLOW); KETONES URINE NEGATIVE (NEGATIVE); LEUKOCYTE ESTERASE URINE 1+ (NEGATIVE); NITRITE URINE POSITIVE (NEGATIVE); OCCULT BLOOD URINE NEGATIVE (NEGATIVE); PROTEIN URINE 2+ (NEGATIVE); UROBILINOGEN URINE 0.2 E.U./dL (0.2-1.0)
[2017-05-12] VITALS (57 sets, daily range): BP systolic 99–171; BP diastolic 54–102
[2017-05-12] MEDS ORDERED: IOHEXOL-300 100 ML BOTTLE ONE ×2 (00:03)
[2017-05-12 00:05] LABS: CREATINE KINASE MB FRACTION 40.2 ng/mL (0.5-3.6)
[2017-05-12] MEDS: HYDRALAZINE HCL 50MG TABLET PEG SCH ×4 (00:21→17:40)
[2017-05-12] MEDS: LABETALOL HCL 200MG TABLET PEG SCH ×4 (00:21→17:40)
[2017-05-12] MEDS: ALBUTEROL (0.083%) 2.5MG/3ML NEB HHN SCH ×6 (00:40→20:40)
[2017-05-12] MEDS ORDERED: HEPARIN 25,000 UNITS PREMIX 500 ML IV PRN (01:15)
[2017-05-12 01:39] LABS: INR 1.1; PROTHROMBIN TIME 11.1 sec (9.4-11.6)
[2017-05-12] MEDS ORDERED: HEPARIN BOLUS PRN aPTT 37-44 IV (03:00)
[2017-05-12] MEDS ORDERED: HEPARIN BOLUS PRN aPTT <36 IV (03:00)
[2017-05-12] MEDS: HEPARIN 25,000 UNITS PREMIX 500 ML IV SCH ×2 (03:25→22:00)
[2017-05-12] MEDS: DEXT 5%/0.45% NACL 1000ML 1,000 ML IV SCH (05:37)
[2017-05-12] MEDS: TERAZOSIN HCL 1MG CAPSULE PEG SCH ×4 (06:00→17:40)
[2017-05-12] MEDS: MINOXIDIL 2.5MG TABLET PEG SCH ×4 (06:00→17:40)
[2017-05-12 06:11] LABS: BASOPHILS % 0.5 % (0.0-2.0); EOSINOPHILS % 0.3 % (0.0-5.0); HEMATOCRIT. 24.9 % (42.0-52.0); HEMOGLOBIN. 8.1 g/dL (14.0-18.0); LYMPHOCYTES % 10.5 % (20.0-50.0); MEAN CORPUSCULAR HEMOGLOBIN 31.2 pg (28.0-32.0); MEAN CORPUSCULAR VOLUME 95.4 fL (80.0-94.0); MEAN PLATELET VOLUME 10.3 fl (7.4-10.4); MONOCYTES % 4.3 % (2.0-8.0); NEUTROPHILS % 84.4 % (40.0-76.0); PLATELET 186 x1000/uL (130-400); RED BLOOD CELL COUNT 2.61 mill/uL (4.7-6.1); RED CELL DISTRIBUTION WIDTH 16.7 % (11.6-14.6)
[2017-05-12 06:33] LABS: CHLORIDE 116 mEq/L (98-107)
[2017-05-12 06:56] LABS: CARBON DIOXIDE 28 mEq/L (21-32); CREATINE KINASE 391 IU/L (39-308); CREATINE KINASE MB FRACTION 28.9 ng/mL (0.5-3.6); PHOSPHORUS 3.2 mg/dL (2.5-4.9)
[2017-05-12] MEDS: AMLODIPINE 10MG TABLET PO SCH (09:01)
[2017-05-12] MEDS: SPIRONOLACTONE 25MG TABLET PO SCH (09:01)
[2017-05-12] MEDS: PHENYTOIN 100 MG/4 ML UDC GT SCH ×2 (09:01→17:41)
[2017-05-12] MEDS: FAMOTIDINE 20MG TABLET PO SCH ×2 (09:01→20:06)
[2017-05-12] MEDS: SODIUM HYPOCHLORITE 0.125% 473ML SOLUTION TOP SCH (09:02)
[2017-05-12] MEDS ORDERED: HEPARIN SODIUM 1,000 UNIT/1ML VIAL IV ONE (09:30)
[2017-05-12] MEDS: DEXTROSE 5% WATER 1,000 ML IV SCH (10:52)
[2017-05-12] MEDS ORDERED: EPINEPHRINE 0.1MG/ML (1:10,000) 10ML SYR ONE (14:40)
[2017-05-12 16:00] LABS: CREATINE KINASE MB FRACTION 11.1 ng/mL (0.5-3.6)
[2017-05-12] MEDS: ACETAMINOPHEN 650MG/20.3ML UDC PO PRN (20:26)
[2017-05-13] VITALS (40 sets, daily range): BP systolic 120–154; BP diastolic 70–95
[2017-05-13] MEDS: ALBUTEROL (0.083%) 2.5MG/3ML NEB HHN SCH ×6 (00:27→23:56)
[2017-05-13] MEDS: LABETALOL HCL 200MG TABLET PEG SCH ×4 (00:28→18:04)
[2017-05-13] MEDS: HYDRALAZINE HCL 50MG TABLET PEG SCH ×4 (00:29→18:04)
[2017-05-13] MEDS: DEXTROSE 5% WATER 1,000 ML IV SCH ×2 (00:42→21:04)
[2017-05-13] MEDS: MINOXIDIL 2.5MG TABLET PEG SCH ×4 (01:39→18:05)
[2017-05-13] MEDS: TERAZOSIN HCL 1MG CAPSULE PEG SCH ×4 (01:39→18:03)
[2017-05-13 03:25] LABS: BASOPHILS % 0.6 % (0.0-2.0); EOSINOPHILS % 1.2 % (0.0-5.0); HEMATOCRIT. 23.3 % (42.0-52.0); HEMOGLOBIN. 7.5 g/dL (14.0-18.0); LYMPHOCYTES % 12.9 % (20.0-50.0); MEAN CORPUSCULAR HEMOGLOBIN 30.7 pg (28.0-32.0); MEAN CORPUSCULAR VOLUME 94.9 fL (80.0-94.0); MONOCYTES % 4.9 % (2.0-8.0); NEUTROPHILS % 80.4 % (40.0-76.0); PLATELET 174 x1000/uL (130-400); RED BLOOD CELL COUNT 2.45 mill/uL (4.7-6.1); RED CELL DISTRIBUTION WIDTH 16.7 % (11.6-14.6)
[2017-05-13 03:49] LABS: CARBON DIOXIDE 32 mEq/L (21-32); CHLORIDE 108 mEq/L (98-107); CREATINE KINASE 143 IU/L (39-308); CREATINE KINASE MB FRACTION 5.6 ng/mL (0.5-3.6)
[2017-05-13 08:20] LABS: BG BASE EXCESS 7.3 mmol/L (-2.0-2.0); BG CARBOXYHEMOGLOBIN 0.3 % (0.5-1.5); BG DEOXYHEMOGLOBIN 1.1 % (0.0-5.0); BG FRACTION INSPIRED OXYGEN 50; BG METHEMOGLOBIN 1.2 % (0.0-1.5); BG OXYGEN SATURATION 98.9 % (92.0-98.5); BG OXYHEMOGLOBIN 97.4 % (94.0-97.0); BG PCO2 46.7 mmHg (35.0-45.0); BG PH 7.454 (7.350-7.450); BG PO2 196.8 mmHg (75.0-100.0); BG SAMPLE SITE RIGHT RADIAL; BG TIDAL VOLUME(mL) 500 mL; BG TOTAL HEMOGLOBIN 7.9 g/dL (12.0-18.0); BG VENT MODE VENT - A/C; BG VENT RATE 12 set
[2017-05-13] MEDS: ENOXAPARIN 60MG/0.6ML SYR SUBCUT SCH ×2 (10:00→20:52)
[2017-05-13 12:25] LABS: VITAMIN B12 SERUM 867 pg/mL (211-911)
[2017-05-13 14:37] LABS: FERRITIN 273 ng/mL (22-322)
[2017-05-13 15:31] LABS: FOLIC ACID (FOLATE) SERUM > 20.00 ng/mL (>5.38)
[2017-05-13 15:45] LABS: HEMATOCRIT 22.7 % (42.0-52.0); HEMOGLOBIN 7.5 g/dL (14.0-18.0)
[2017-05-13 15:53] LABS: TOTAL IRON BINDING CAPACITY 144 ug/dL (250-450)
[2017-05-13] MEDS: FAMOTIDINE 20MG TABLET PO SCH ×2 (20:53→21:00)
[2017-05-14] VITALS (22 sets, daily range): BP systolic 104–159; BP diastolic 61–90
[2017-05-14] MEDS: MINOXIDIL 2.5MG TABLET PEG SCH ×4 (00:51→17:51)
[2017-05-14] MEDS: HYDRALAZINE HCL 50MG TABLET PEG SCH ×4 (00:51→17:50)
[2017-05-14] MEDS: TERAZOSIN HCL 1MG CAPSULE PEG SCH ×4 (00:51→17:50)
[2017-05-14] MEDS: LABETALOL HCL 200MG TABLET PEG SCH ×4 (00:51→17:52)
[2017-05-14] MEDS: ALBUTEROL (0.083%) 2.5MG/3ML NEB HHN SCH ×5 (04:18→20:39)
[2017-05-14 05:42] LABS: BASOPHILS % 0.5 % (0.0-2.0); EOSINOPHILS % 2.1 % (0.0-5.0); HEMATOCRIT. 26.5 % (42.0-52.0); HEMOGLOBIN. 8.7 g/dL (14.0-18.0); LYMPHOCYTES % 13.2 % (20.0-50.0); MEAN CORPUSCULAR HEMOGLOBIN 30.8 pg (28.0-32.0); MEAN CORPUSCULAR VOLUME 93.4 fL (80.0-94.0); MEAN PLATELET VOLUME 10.8 fl (7.4-10.4); MONOCYTES % 5.1 % (2.0-8.0); NEUTROPHILS % 79.1 % (40.0-76.0); PLATELET 170 x1000/uL (130-400); RED BLOOD CELL COUNT 2.84 mill/uL (4.7-6.1); RED CELL DISTRIBUTION WIDTH 16.8 % (11.6-14.6)
[2017-05-14 06:27] LABS: CARBON DIOXIDE 30 mEq/L (21-32); CHLORIDE 102 mEq/L (98-107)
[2017-05-14] MEDS: PHENYTOIN 100 MG/4 ML UDC GT SCH ×2 (09:38→16:21)
[2017-05-14] MEDS: SPIRONOLACTONE 25MG TABLET PO SCH (09:38)
[2017-05-14] MEDS: AMLODIPINE 10MG TABLET PO SCH (09:38)
[2017-05-14] MEDS: ENOXAPARIN 60MG/0.6ML SYR SUBCUT SCH ×2 (09:39→20:35)
[2017-05-14] MEDS: FAMOTIDINE 20MG TABLET PO SCH ×2 (09:39→20:34)
[2017-05-14] MEDS: DEXTROSE 5% WATER 1,000 ML IV SCH ×2 (10:14)
[2017-05-14] MEDS: VANCOMYCIN HCL 1000 MG/20 ML ORAL PO SCH ×4 (11:21→20:55)
[2017-05-14] MEDS: SODIUM HYPOCHLORITE 0.125% 473ML SOLUTION TOP SCH ×2 (14:51→14:53)
[2017-05-15] VITALS (12 sets, daily range): BP systolic 117–152; BP diastolic 68–88
[2017-05-15] MEDS: DEXTROSE 5% WATER 1,000 ML IV SCH ×2 (02:16→13:54)
[2017-05-15] MEDS: ALBUTEROL (0.083%) 2.5MG/3ML NEB HHN SCH ×6 (04:12→19:52)
[2017-05-15] MEDS: TERAZOSIN HCL 1MG CAPSULE PEG SCH ×5 (05:28→23:59)
[2017-05-15] MEDS: MINOXIDIL 2.5MG TABLET PEG SCH ×5 (05:28→23:59)
[2017-05-15] MEDS: LABETALOL HCL 200MG TABLET PEG SCH ×4 (05:31→17:11)
[2017-05-15] MEDS: HYDRALAZINE HCL 50MG TABLET PEG SCH ×3 (06:00→13:54)
[2017-05-15 06:11] LABS: BASOPHILS % 0.4 % (0.0-2.0); HEMATOCRIT. 24.5 % (42.0-52.0); HEMOGLOBIN. 8.2 g/dL (14.0-18.0); LYMPHOCYTES % 12.6 % (20.0-50.0); MEAN CORPUSCULAR HEMOGLOBIN 31.2 pg (28.0-32.0); MEAN CORPUSCULAR VOLUME 92.7 fL (80.0-94.0); MONOCYTES % 5.9 % (2.0-8.0); NEUTROPHILS % 79.1 % (40.0-76.0); PLATELET 171 x1000/uL (130-400); RED BLOOD CELL COUNT 2.64 mill/uL (4.7-6.1); RED CELL DISTRIBUTION WIDTH 16.4 % (11.6-14.6)
[2017-05-15 06:44] LABS: CHLORIDE 102 mEq/L (98-107)
[2017-05-15 06:49] LABS: CARBON DIOXIDE 31 mEq/L (21-32)
[2017-05-15] MEDS: SPIRONOLACTONE 25MG TABLET PO SCH (09:00)
[2017-05-15] MEDS: PHENYTOIN 100 MG/4 ML UDC GT SCH ×2 (09:35→17:08)
[2017-05-15] MEDS: FAMOTIDINE 20MG TABLET PO SCH ×2 (09:36→20:01)
[2017-05-15] MEDS: VANCOMYCIN HCL 1000 MG/20 ML ORAL PO SCH ×4 (09:36→20:20)
[2017-05-15] MEDS: SODIUM HYPOCHLORITE 0.125% 473ML SOLUTION TOP SCH (09:36)
[2017-05-15] MEDS: ENOXAPARIN 60MG/0.6ML SYR SUBCUT SCH ×2 (09:37→20:02)
[2017-05-15] MEDS: AMLODIPINE 10MG TABLET PO SCH (09:37)
[2017-05-16] VITALS (12 sets, daily range): BP systolic 109–156; BP diastolic 59–87
[2017-05-16] MEDS: ALBUTEROL (0.083%) 2.5MG/3ML NEB HHN SCH ×6 (00:16→20:43)
[2017-05-16] MEDS: SILVER SULFADIAZINE 1% CREAM 50GM TOP SCH ×2 (04:53→08:51)
[2017-05-16] MEDS: DEXTROSE 5% WATER 1,000 ML IV SCH ×2 (04:57→15:32)
[2017-05-16] MEDS: TERAZOSIN HCL 1MG CAPSULE PEG SCH ×4 (05:24→23:37)
[2017-05-16] MEDS: MINOXIDIL 2.5MG TABLET PEG SCH ×4 (05:25→23:38)
[2017-05-16] MEDS: LABETALOL HCL 200MG TABLET PEG SCH ×5 (05:26→23:37)
[2017-05-16] MEDS: FAMOTIDINE 20MG TABLET PO SCH ×2 (08:45→20:57)
[2017-05-16] MEDS: PHENYTOIN 100 MG/4 ML UDC GT SCH ×2 (08:45→18:29)
[2017-05-16] MEDS: SPIRONOLACTONE 25MG TABLET PO SCH (08:45)
[2017-05-16] MEDS: VANCOMYCIN HCL 1000 MG/20 ML ORAL PO SCH ×4 (08:47→20:57)
[2017-05-16] MEDS: ENOXAPARIN 60MG/0.6ML SYR SUBCUT SCH ×2 (08:48→20:58)
[2017-05-16] MEDS: SODIUM HYPOCHLORITE 0.125% 473ML SOLUTION TOP SCH (08:50)
[2017-05-16] MEDS ORDERED: ACETYLCYSTEINE 100MG/ML 10% VIAL 4ML INH SCH (14:00)
[2017-05-16] MEDS: ASCORBIC ACID 500 MG TABLET GT SCH (15:27)
[2017-05-16] MEDS: FERROUS SULFATE 300MG/5ML UDC GT SCH (15:28)
[2017-05-17] VITALS (16 sets, daily range): BP systolic 125–154; BP diastolic 65–88
[2017-05-17] MEDS: ALBUTEROL (0.083%) 2.5MG/3ML NEB HHN SCH ×7 (00:49→23:59)
[2017-05-17] MEDS: DEXTROSE 5% WATER 1,000 ML IV SCH ×2 (03:05→16:41)
[2017-05-17] MEDS: LABETALOL HCL 200MG TABLET PEG SCH ×2 (05:24→12:05)
[2017-05-17] MEDS: TERAZOSIN HCL 1MG CAPSULE PEG SCH ×4 (05:24→23:48)
[2017-05-17] MEDS: MINOXIDIL 2.5MG TABLET PEG SCH ×4 (05:25→23:48)
[2017-05-17 06:16] LABS: BASOPHILS % 0.7 % (0.0-2.0); CARBON DIOXIDE 34 mEq/L (21-32); CHLORIDE 98 mEq/L (98-107); HEMATOCRIT. 23.6 % (42.0-52.0); HEMOGLOBIN. 7.8 g/dL (14.0-18.0); LYMPHOCYTES % 15.1 % (20.0-50.0); MEAN CORPUSCULAR HEMOGLOBIN 30.7 pg (28.0-32.0); MEAN PLATELET VOLUME 10.9 fl (7.4-10.4); MONOCYTES % 7.4 % (2.0-8.0); NEUTROPHILS % 74.8 % (40.0-76.0); PLATELET 190 x1000/uL (130-400); RED BLOOD CELL COUNT 2.54 mill/uL (4.7-6.1); RED CELL DISTRIBUTION WIDTH 15.6 % (11.6-14.6)
[2017-05-17] MEDS: PHENYTOIN 100 MG/4 ML UDC GT SCH (08:45)
[2017-05-17] MEDS: FERROUS SULFATE 300MG/5ML UDC GT SCH (08:45)
[2017-05-17] MEDS: ENOXAPARIN 60MG/0.6ML SYR SUBCUT SCH ×2 (08:45→21:38)
[2017-05-17] MEDS: VANCOMYCIN HCL 1000 MG/20 ML ORAL PO SCH ×4 (08:46→21:37)
[2017-05-17] MEDS: FAMOTIDINE 20MG TABLET PO SCH ×2 (08:46→21:37)
[2017-05-17] MEDS: ASCORBIC ACID 500 MG TABLET GT SCH (08:46)
[2017-05-17] MEDS: SPIRONOLACTONE 25MG TABLET PO SCH (08:46)
[2017-05-17] MEDS: SILVER SULFADIAZINE 1% CREAM 50GM TOP SCH (08:46)
[2017-05-17] MEDS: SODIUM HYPOCHLORITE 0.125% 473ML SOLUTION TOP SCH (08:47)
[2017-05-18] VITALS (12 sets, daily range): BP systolic 153–174; BP diastolic 81–97
[2017-05-18] MEDS: DEXTROSE 5% WATER 1,000 ML IV SCH ×2 (03:04→16:34)
[2017-05-18] MEDS: ALBUTEROL (0.083%) 2.5MG/3ML NEB HHN SCH ×5 (04:30→20:51)
[2017-05-18] MEDS: TERAZOSIN HCL 1MG CAPSULE PEG SCH ×4 (05:30→23:15)
[2017-05-18] MEDS: MINOXIDIL 2.5MG TABLET PEG SCH ×4 (05:30→23:14)
[2017-05-18] MEDS: ASCORBIC ACID 500 MG TABLET GT SCH (08:13)
[2017-05-18] MEDS: FAMOTIDINE 20MG TABLET PO SCH ×2 (08:13→20:56)
[2017-05-18] MEDS: VANCOMYCIN HCL 1000 MG/20 ML ORAL PO SCH ×4 (08:14→20:57)
[2017-05-18] MEDS: SPIRONOLACTONE 25MG TABLET PO SCH (08:14)
[2017-05-18] MEDS: SILVER SULFADIAZINE 1% CREAM 50GM TOP SCH (08:15)
[2017-05-18] MEDS: CLONIDINE HCL 0.3MG/24HR PATCH TD SCH (08:15)
[2017-05-18] MEDS: ENOXAPARIN 60MG/0.6ML SYR SUBCUT SCH ×2 (08:15→20:56)
[2017-05-18] MEDS: FERROUS SULFATE 300MG/5ML UDC GT SCH (08:15)
[2017-05-18] MEDS: SODIUM HYPOCHLORITE 0.125% 473ML SOLUTION TOP SCH (08:16)
[2017-05-19] VITALS (12 sets, daily range): BP systolic 154–180; BP diastolic 72–94
[2017-05-19] MEDS: ALBUTEROL (0.083%) 2.5MG/3ML NEB HHN SCH ×6 (00:41→20:35)
[2017-05-19] MEDS: TERAZOSIN HCL 1MG CAPSULE PEG SCH ×3 (05:12→16:56)
[2017-05-19] MEDS: MINOXIDIL 2.5MG TABLET PEG SCH ×3 (05:13→16:57)
[2017-05-19] MEDS: DEXTROSE 5% WATER 1,000 ML IV SCH (05:26)
[2017-05-19 06:02] LABS: BASOPHILS % 0.6 % (0.0-2.0); EOSINOPHILS % 1.5 % (0.0-5.0); HEMATOCRIT. 24.9 % (42.0-52.0); HEMOGLOBIN. 8.3 g/dL (14.0-18.0); MEAN CORPUSCULAR HEMOGLOBIN 30.9 pg (28.0-32.0); MEAN CORPUSCULAR VOLUME 92.2 fL (80.0-94.0); MEAN PLATELET VOLUME 10.4 fl (7.4-10.4); MONOCYTES % 10.4 % (2.0-8.0); NEUTROPHILS % 71.5 % (40.0-76.0); PLATELET 193 x1000/uL (130-400); RED CELL DISTRIBUTION WIDTH 15.3 % (11.6-14.6)
[2017-05-19 06:42] LABS: CARBON DIOXIDE 37 mEq/L (21-32); CHLORIDE 95 mEq/L (98-107)
[2017-05-19] MEDS: SODIUM HYPOCHLORITE 0.125% 473ML SOLUTION TOP SCH (08:45)
[2017-05-19] MEDS: ENOXAPARIN 60MG/0.6ML SYR SUBCUT SCH ×2 (08:45→21:35)
[2017-05-19] MEDS: FERROUS SULFATE 300MG/5ML UDC GT SCH (08:45)
[2017-05-19] MEDS: SILVER SULFADIAZINE 1% CREAM 50GM TOP SCH (08:45)
[2017-05-19] MEDS: FAMOTIDINE 20MG TABLET PO SCH ×2 (08:46→21:35)
[2017-05-19] MEDS: ASCORBIC ACID 500 MG TABLET GT SCH (08:46)
[2017-05-19] MEDS: SPIRONOLACTONE 25MG TABLET PO SCH (08:46)
[2017-05-19] MEDS: VANCOMYCIN HCL 1000 MG/20 ML ORAL PO SCH ×4 (08:47→21:35)
[2017-05-19] MEDS ORDERED: PHENYTOIN SODIUM 500 MG in SODIUM CHLORIDE 0.9% 50 ML IV NR (12:00)
[2017-05-20] VITALS (12 sets, daily range): BP systolic 152–179; BP diastolic 81–101
[2017-05-20] MEDS: MINOXIDIL 2.5MG TABLET PEG SCH ×5 (00:14→23:37)
[2017-05-20] MEDS: TERAZOSIN HCL 1MG CAPSULE PEG SCH ×5 (00:14→23:36)
[2017-05-20] MEDS: ALBUTEROL (0.083%) 2.5MG/3ML NEB HHN SCH ×7 (00:17→23:33)
[2017-05-20] MEDS: FERROUS SULFATE 300MG/5ML UDC GT SCH (08:15)
[2017-05-20] MEDS: ASCORBIC ACID 500 MG TABLET GT SCH (08:15)
[2017-05-20] MEDS: FAMOTIDINE 20MG TABLET PO SCH (08:16)
[2017-05-20] MEDS: SPIRONOLACTONE 25MG TABLET PO SCH (08:16)
[2017-05-20] MEDS: PHENYTOIN 100 MG/4 ML UDC NG SCH ×2 (08:17→17:32)
[2017-05-20] MEDS: ENOXAPARIN 60MG/0.6ML SYR SUBCUT SCH ×2 (08:17→20:43)
[2017-05-20] MEDS: SILVER SULFADIAZINE 1% CREAM 50GM TOP SCH (08:18)
[2017-05-20] MEDS: SODIUM HYPOCHLORITE 0.125% 473ML SOLUTION TOP SCH (08:18)
[2017-05-20] MEDS: VANCOMYCIN HCL 1000 MG/20 ML ORAL PO SCH ×4 (08:18→20:44)
[2017-05-20] MEDS: AMLODIPINE 2.5MG TABLET PEG SCH (23:41)
[2017-05-21] VITALS (14 sets, daily range): BP systolic 115–172; BP diastolic 69–99
[2017-05-21] MEDS: ALBUTEROL (0.083%) 2.5MG/3ML NEB HHN SCH ×5 (03:10→20:31)
[2017-05-21] MEDS: TERAZOSIN HCL 1MG CAPSULE PEG SCH (05:26)
[2017-05-21] MEDS: AMLODIPINE 2.5MG TABLET PEG SCH ×3 (05:26→17:05)
[2017-05-21] MEDS: ASCORBIC ACID 500 MG TABLET GT SCH (08:32)
[2017-05-21] MEDS: ENOXAPARIN 60MG/0.6ML SYR SUBCUT SCH ×2 (08:32→20:38)
[2017-05-21] MEDS: FERROUS SULFATE 300MG/5ML UDC GT SCH (08:32)
[2017-05-21] MEDS: VANCOMYCIN HCL 1000 MG/20 ML ORAL PO SCH ×4 (08:32→20:38)
[2017-05-21] MEDS: PHENYTOIN 100 MG/4 ML UDC NG SCH ×2 (08:32→17:05)
[2017-05-21] MEDS: SODIUM HYPOCHLORITE 0.125% 473ML SOLUTION TOP SCH (08:33)
[2017-05-21] MEDS: SILVER SULFADIAZINE 1% CREAM 50GM TOP SCH (08:33)
[2017-05-21] MEDS: FAMOTIDINE 20MG TABLET GT SCH ×2 (09:08→20:37)
[2017-05-22] VITALS (19 sets, daily range): BP systolic 98–142; BP diastolic 58–101
[2017-05-22] MEDS: AMLODIPINE 2.5MG TABLET PEG SCH ×4 (00:07→17:03)
[2017-05-22] MEDS: ALBUTEROL (0.083%) 2.5MG/3ML NEB HHN SCH ×6 (00:15→21:15)
[2017-05-22 07:12] LABS: EOSINOPHILS % 1.6 % (0.0-5.0); LYMPHOCYTES % 23.9 % (20.0-50.0); MEAN CORPUSCULAR HEMOGLOBIN 30.8 pg (28.0-32.0); MEAN CORPUSCULAR VOLUME 92.7 fL (80.0-94.0); MEAN PLATELET VOLUME 9.8 fl (7.4-10.4); MONOCYTES % 10.4 % (2.0-8.0); NEUTROPHILS % 63.1 % (40.0-76.0); PLATELET 214 x1000/uL (130-400); RED BLOOD CELL COUNT 2.59 mill/uL (4.7-6.1); RED CELL DISTRIBUTION WIDTH 15.3 % (11.6-14.6)
[2017-05-22 07:20] LABS: CARBON DIOXIDE 38 mEq/L (21-32); CHLORIDE 95 mEq/L (98-107)
[2017-05-22] MEDS: FAMOTIDINE 20MG TABLET GT SCH ×2 (08:36→20:45)
[2017-05-22] MEDS: VANCOMYCIN HCL 1000 MG/20 ML ORAL PO SCH ×4 (08:36→20:44)
[2017-05-22] MEDS: FERROUS SULFATE 300MG/5ML UDC GT SCH (08:36)
[2017-05-22] MEDS: ASCORBIC ACID 500 MG TABLET GT SCH (08:36)
[2017-05-22] MEDS: PHENYTOIN 100 MG/4 ML UDC NG SCH ×2 (08:36→16:59)
[2017-05-22] MEDS: ENOXAPARIN 60MG/0.6ML SYR SUBCUT SCH ×2 (08:37→20:45)
[2017-05-22] MEDS: SILVER SULFADIAZINE 1% CREAM 50GM TOP SCH (08:43)
[2017-05-22] MEDS: SODIUM HYPOCHLORITE 0.125% 473ML SOLUTION TOP SCH (08:43)
[2017-05-22] MEDS: TERAZOSIN HCL 5MG CAPSULE PO SCH (20:45)
[2017-05-23] VITALS (13 sets, daily range): BP systolic 118–161; BP diastolic 69–95
[2017-05-23] MEDS: AMLODIPINE 2.5MG TABLET PEG SCH ×4 (00:03→18:00)
[2017-05-23] MEDS: ALBUTEROL (0.083%) 2.5MG/3ML NEB HHN SCH ×6 (00:15→19:45)
[2017-05-23] MEDS: TERAZOSIN HCL 5MG CAPSULE PO SCH ×3 (05:48→21:42)
[2017-05-23 06:17] LABS: BASOPHILS % 1.1 % (0.0-2.0); EOSINOPHILS % 1.5 % (0.0-5.0); HEMOGLOBIN. 8.6 g/dL (14.0-18.0); MEAN CORPUSCULAR HEMOGLOBIN 30.7 pg (28.0-32.0); MEAN PLATELET VOLUME 9.5 fl (7.4-10.4); MONOCYTES % 8.9 % (2.0-8.0); NEUTROPHILS % 66.5 % (40.0-76.0); PLATELET 225 x1000/uL (130-400); RED BLOOD CELL COUNT 2.79 mill/uL (4.7-6.1); RED CELL DISTRIBUTION WIDTH 15.8 % (11.6-14.6)
[2017-05-23 07:18] LABS: CARBON DIOXIDE 39 mEq/L (21-32); CHLORIDE 96 mEq/L (98-107)
[2017-05-23] MEDS: SODIUM HYPOCHLORITE 0.125% 473ML SOLUTION TOP SCH (09:00)
[2017-05-23] MEDS: SILVER SULFADIAZINE 1% CREAM 50GM TOP SCH (09:00)
[2017-05-23] MEDS: ENOXAPARIN 60MG/0.6ML SYR SUBCUT SCH ×2 (10:44→21:47)
[2017-05-23] MEDS: FAMOTIDINE 20MG TABLET GT SCH ×2 (10:45→21:42)
[2017-05-23] MEDS: ASCORBIC ACID 500 MG TABLET GT SCH (10:45)
[2017-05-23] MEDS: PHENYTOIN 100 MG/4 ML UDC NG SCH ×2 (10:45→17:09)
[2017-05-23] MEDS: FERROUS SULFATE 300MG/5ML UDC GT SCH (10:45)
[2017-05-24] VITALS (13 sets, daily range): BP systolic 131–158; BP diastolic 74–94
[2017-05-24] MEDS: AMLODIPINE 2.5MG TABLET PEG SCH ×4 (00:04→17:51)
[2017-05-24] MEDS: ALBUTEROL (0.083%) 2.5MG/3ML NEB HHN SCH ×5 (00:10→15:49)
[2017-05-24] MEDS: TERAZOSIN HCL 5MG CAPSULE PO SCH ×3 (05:17→22:21)
[2017-05-24 07:19] LABS: BASOPHILS % 0.6 % (0.0-2.0); EOSINOPHILS % 1.2 % (0.0-5.0); HEMATOCRIT. 24.5 % (42.0-52.0); LYMPHOCYTES % 15.8 % (20.0-50.0); MEAN CORPUSCULAR HEMOGLOBIN 30.6 pg (28.0-32.0); MEAN CORPUSCULAR VOLUME 93.5 fL (80.0-94.0); MEAN PLATELET VOLUME 8.8 fl (7.4-10.4); MONOCYTES % 9.6 % (2.0-8.0); NEUTROPHILS % 72.8 % (40.0-76.0); PLATELET 191 x1000/uL (130-400); RED BLOOD CELL COUNT 2.62 mill/uL (4.7-6.1); RED CELL DISTRIBUTION WIDTH 15.7 % (11.6-14.6)
[2017-05-24 08:21] LABS: CARBON DIOXIDE 39 mEq/L (21-32); CHLORIDE 98 mEq/L (98-107)
[2017-05-24 08:51] LABS: BG BASE EXCESS 13.3 mmol/L (-2.0-2.0); BG CARBOXYHEMOGLOBIN 0.3 % (0.5-1.5); BG DEOXYHEMOGLOBIN 0.9 % (0.0-5.0); BG FRACTION INSPIRED OXYGEN 40; BG HCO3 ACT 39.1 mmol/L (22.0-26.0); BG METHEMOGLOBIN 0.4 % (0.0-1.5); BG OXYGEN SATURATION 99.1 % (92.0-98.5); BG OXYHEMOGLOBIN 98.4 % (94.0-97.0); BG PCO2 59.1 mmHg (35.0-45.0); BG PH 7.439 (7.350-7.450); BG PO2 187.3 mmHg (75.0-100.0); BG PRESSURE SUPPORT 10; BG SAMPLE SITE RIGHT BRACHIAL; BG TIDAL VOLUME(mL) 500 mL; BG TOTAL HEMOGLOBIN 8.5 g/dL (12.0-18.0); BG VENT MODE VENT - SIMV; BG VENT RATE 8 set
[2017-05-24] MEDS: PHENYTOIN 100 MG/4 ML UDC NG SCH ×2 (09:49→17:51)
[2017-05-24] MEDS: ENOXAPARIN 60MG/0.6ML SYR SUBCUT SCH ×2 (09:50→21:26)
[2017-05-24] MEDS: ASCORBIC ACID 500 MG TABLET GT SCH (09:50)
[2017-05-24] MEDS: FERROUS SULFATE 300MG/5ML UDC GT SCH (09:50)
[2017-05-24] MEDS: FAMOTIDINE 20MG TABLET GT SCH ×2 (09:50→21:25)
[2017-05-24] MEDS: SILVER SULFADIAZINE 1% CREAM 50GM TOP SCH (09:51)
[2017-05-24] MEDS: SODIUM HYPOCHLORITE 0.125% 473ML SOLUTION TOP SCH (09:51)
[2017-05-24] MEDS ORDERED: PANTOPRAZOLE 40MG DR TABLET PO SCH (19:00)
[2017-05-24] MEDS ORDERED: ZINC OXIDE 20% OINT 30GM TOP SCH (19:00)
[2017-05-24] MEDS ORDERED: HEPARIN 10,000 UNITS/ML VIAL SUBCUT SCH (19:00)
[2017-05-24] MEDS ORDERED: RISPERIDONE 1MG TABLET GT SCH (19:00)
[2017-05-24] MEDS ORDERED: IPRATROPIUM BROMIDE (0.02%) 0.5MG/2.5ML NEB HHN SCH (19:00)
[2017-05-24] MEDS ORDERED: NYSTATIN POWDER 15GM TOP SCH (19:00)
[2017-05-24] MEDS ORDERED: LORAZEPAM 1MG TABLET GT SCH (19:00)
[2017-05-24] MEDS ORDERED: ONDANSETRON 4MG/5ML UDC GT SCH (19:00)
[2017-05-24] MEDS ORDERED: LEVETIRACETAM 500MG TABLET GT SCH (19:00)
[2017-05-24] MEDS ORDERED: MINOXIDIL 2.5MG TABLET GT SCH (19:00)
[2017-05-24] MEDS ORDERED: HYDRALAZINE HCL 25MG TABLET GT SCH (20:00)
[2017-05-24] MEDS ORDERED: CLONIDINE 0.3MG TABLET GT SCH (20:00)
[2017-05-24] MEDS ORDERED: TAMSULOSIN HCL 0.4MG SR CAPSULE PO SCH (21:00)
[2017-05-25] VITALS (31 sets, daily range): BP systolic 113–163; BP diastolic 72–105
[2017-05-25] MEDS: AMLODIPINE 2.5MG TABLET PEG SCH ×4 (00:37→17:54)
[2017-05-25] MEDS: TERAZOSIN HCL 5MG CAPSULE PO SCH ×3 (05:55→22:09)
[2017-05-25 07:36] LABS: EOSINOPHILS % 1.6 % (0.0-5.0); HEMATOCRIT. 26.7 % (42.0-52.0); HEMOGLOBIN. 8.7 g/dL (14.0-18.0); LYMPHOCYTES % 20.9 % (20.0-50.0); MEAN CORPUSCULAR VOLUME 95.6 fL (80.0-94.0); MEAN PLATELET VOLUME 10.2 fl (7.4-10.4); MONOCYTES % 8.6 % (2.0-8.0); NEUTROPHILS % 67.9 % (40.0-76.0); PLATELET 187 x1000/uL (130-400)
[2017-05-25 07:43] LABS: CARBON DIOXIDE 38 mEq/L (21-32); CHLORIDE 97 mEq/L (98-107)
[2017-05-25] MEDS: ASCORBIC ACID 500 MG TABLET GT SCH (08:52)
[2017-05-25] MEDS: PHENYTOIN 100 MG/4 ML UDC NG SCH ×2 (08:52→17:53)
[2017-05-25] MEDS: FAMOTIDINE 20MG TABLET GT SCH ×2 (08:52→22:06)
[2017-05-25] MEDS: ENOXAPARIN 60MG/0.6ML SYR SUBCUT SCH (08:52)
[2017-05-25] MEDS: FERROUS SULFATE 300MG/5ML UDC GT SCH (08:52)
[2017-05-25] MEDS: SODIUM HYPOCHLORITE 0.125% 473ML SOLUTION TOP SCH (08:54)
[2017-05-25] MEDS: SILVER SULFADIAZINE 1% CREAM 50GM TOP SCH (08:54)
[2017-05-25 08:59] LABS: BG BASE EXCESS 10.8 mmol/L (-2.0-2.0); BG DEOXYHEMOGLOBIN 0.8 % (0.0-5.0); BG FRACTION INSPIRED OXYGEN 40; BG HCO3 ACT 36.4 mmol/L (22.0-26.0); BG METHEMOGLOBIN 0.3 % (0.0-1.5); BG OXYGEN SATURATION 99.2 % (92.0-98.5); BG OXYHEMOGLOBIN 98.9 % (94.0-97.0); BG PCO2 55.4 mmHg (35.0-45.0); BG PH 7.436 (7.350-7.450); BG PO2 173.8 mmHg (75.0-100.0); BG PRESSURE SUPPORT 10; BG SAMPLE SITE RIGHT BRACHIAL; BG TIDAL VOLUME(mL) 500 mL; BG TOTAL HEMOGLOBIN 9.3 g/dL (12.0-18.0); BG VENT MODE VENT - SIMV; BG VENT RATE 8 set
[2017-05-25] MEDS ORDERED: LORAZEPAM 2MG/ML CPJ IV PRN (09:45)
[2017-05-25] MEDS: LEVETIRACETAM 500 MG in SODIUM CHLORIDE 0.9% 100 ML IV SCH (12:53)
[2017-05-25] MEDS: MINOXIDIL 2.5MG TABLET PEG SCH (17:54)
[2017-05-25] MEDS: HYDRALAZINE HCL 25MG TABLET PEG SCH (22:07)
[2017-05-26] VITALS (21 sets, daily range): BP systolic 130–162; BP diastolic 71–100
[2017-05-26] MEDS: LEVETIRACETAM 500 MG in SODIUM CHLORIDE 0.9% 100 ML IV SCH ×2 (00:26→11:33)
[2017-05-26] MEDS: MINOXIDIL 2.5MG TABLET PEG SCH ×4 (00:29→17:51)
[2017-05-26] MEDS: AMLODIPINE 2.5MG TABLET PEG SCH ×4 (00:30→17:51)
[2017-05-26] MEDS: HYDRALAZINE HCL 25MG TABLET PEG SCH ×3 (06:36→21:52)
[2017-05-26] MEDS: TERAZOSIN HCL 5MG CAPSULE PO SCH ×3 (06:37→21:52)
[2017-05-26 08:53] LABS: BG BASE EXCESS 12.5 mmol/L (-2.0-2.0); BG CARBOXYHEMOGLOBIN 0.2 % (0.5-1.5); BG FRACTION INSPIRED OXYGEN 35; BG HCO3 ACT 38.1 mmol/L (22.0-26.0); BG OXYHEMOGLOBIN 96.8 % (94.0-97.0); BG PCO2 54.8 mmHg (35.0-45.0); BG PO2 141.4 mmHg (75.0-100.0); BG PRESSURE SUPPORT 10; BG SAMPLE SITE RIGHT RADIAL; BG TIDAL VOLUME(mL) 500 mL; BG TOTAL HEMOGLOBIN 10.4 g/dL (12.0-18.0); BG VENT MODE VENT - SIMV; BG VENT RATE 8 set
[2017-05-26] MEDS: FERROUS SULFATE 300MG/5ML UDC GT SCH (09:28)
[2017-05-26] MEDS: ASCORBIC ACID 500 MG TABLET GT SCH (09:28)
[2017-05-26] MEDS: SODIUM HYPOCHLORITE 0.125% 473ML SOLUTION TOP SCH (09:28)
[2017-05-26] MEDS: FAMOTIDINE 20MG TABLET GT SCH ×2 (09:28→21:52)
[2017-05-26] MEDS: SILVER SULFADIAZINE 1% CREAM 50GM TOP SCH (09:28)
[2017-05-26] MEDS: PHENYTOIN 100 MG/4 ML UDC NG SCH ×2 (09:31→18:59)
[2017-05-26] MEDS ORDERED: PHENYTOIN SODIUM 500 MG in SODIUM CHLORIDE 0.9% 50 ML IV NR (12:00)
[2017-05-26 16:32] LABS: PROTHROMBIN TIME 10.5 sec (9.4-11.6)
[2017-05-26 16:35] LABS: HEMATOCRIT 29.9 % (42.0-52.0); HEMOGLOBIN 9.8 g/dL (14.0-18.0); MEAN CORPUSCULAR HEMOGLOBIN 30.7 pg (28.0-32.0); MEAN CORPUSCULAR VOLUME 93.4 fL (80.0-94.0); PLATELET 199 x1000/uL (130-400); RED CELL DISTRIBUTION WIDTH 15.9 % (11.6-14.6)
[2017-05-26 18:01] LABS: CHLORIDE 99 mEq/L (98-107)
[2017-05-26 18:07] LABS: CARBON DIOXIDE 40 mEq/L (21-32)
[2017-05-26] MEDS: METOPROLOL TARTRATE 50MG TABLET PEG SCH (21:53)
[2017-05-27] VITALS (36 sets, daily range): BP systolic 118–177; BP diastolic 64–99
[2017-05-27] MEDS: AMLODIPINE 2.5MG TABLET PEG SCH ×5 (01:16→23:57)
[2017-05-27] MEDS: MINOXIDIL 2.5MG TABLET PEG SCH ×5 (01:16→23:58)
[2017-05-27] MEDS: LEVETIRACETAM 500 MG in SODIUM CHLORIDE 0.9% 100 ML IV SCH ×2 (01:16→12:00)
[2017-05-27] MEDS: TERAZOSIN HCL 5MG CAPSULE PO SCH ×3 (06:00→21:33)
[2017-05-27] MEDS: HYDRALAZINE HCL 25MG TABLET PEG SCH ×3 (06:00→21:33)
[2017-05-27 06:26] LABS: BASOPHILS % 1.1 % (0.0-2.0); EOSINOPHILS % 0.6 % (0.0-5.0); HEMATOCRIT. 25.7 % (42.0-52.0); HEMOGLOBIN. 8.5 g/dL (14.0-18.0); LYMPHOCYTES % 14.5 % (20.0-50.0); MEAN CORPUSCULAR HEMOGLOBIN 30.8 pg (28.0-32.0); MEAN CORPUSCULAR VOLUME 93.7 fL (80.0-94.0); MEAN PLATELET VOLUME 9.1 fl (7.4-10.4); MONOCYTES % 8.4 % (2.0-8.0); NEUTROPHILS % 75.4 % (40.0-76.0); PLATELET 188 x1000/uL (130-400); RED BLOOD CELL COUNT 2.75 mill/uL (4.7-6.1); RED CELL DISTRIBUTION WIDTH 16.5 % (11.6-14.6)
[2017-05-27] MEDS ORDERED: GELATIN SPONGE,ABSORBABLE SZ 100 ONE (06:34)
[2017-05-27] MEDS ORDERED: THROMBIN (BOVINE) 5000 UNITS/VIAL TOP ONE (06:35)
[2017-05-27] MEDS ORDERED: LIDOCAINE HCL 1%/EPI 1:200,000 30 ML VIAL ONE (06:35)
[2017-05-27] MEDS ORDERED: BACITRACIN 50,000 UNITS/VIAL ONE (06:35)
[2017-05-27] MEDS ORDERED: LACTATED RINGERS 3,000 ML IV ONE (06:35)
[2017-05-27] MEDS ORDERED: NORMAL SALINE 0.9% 10 ML SYR ONE (06:35)
[2017-05-27] MEDS ORDERED: POVIDONE-IODINE OINT 28.4GM TOP ONE (06:40)
[2017-05-27] MEDS ORDERED: BACITRACIN ZINC 15GM TUBE TOP ONE (06:41)
[2017-05-27 07:09] LABS: CHLORIDE 100 mEq/L (98-107)
[2017-05-27] MEDS ORDERED: FENTANYL CITRATE/PF 50MCG/ML 2ML VIAL ONE (07:53)
[2017-05-27] MEDS ORDERED: MIDAZOLAM HCL 2 MG/2 ML VIAL ONE (07:53)
[2017-05-27 08:04] LABS: CARBON DIOXIDE 40 mEq/L (21-32)
[2017-05-27] MEDS ORDERED: EPHEDRINE SULFATE 50MG/ML VIAL ONE (08:05)
[2017-05-27] MEDS ORDERED: SODIUM CHLORIDE 0.9% 10ML VIAL ONE (08:07)
[2017-05-27] MEDS ORDERED: CEFAZOLIN SODIUM 1000MG/VIAL ONE (08:07)
[2017-05-27] MEDS ORDERED: ALBUTEROL 90MCG/PUFF 17GM INHALER INH ONE (08:20)
[2017-05-27] MEDS: PHENYTOIN 100 MG/4 ML UDC NG SCH ×2 (09:00→17:00)
[2017-05-27] MEDS: METOPROLOL TARTRATE 50MG TABLET PEG SCH ×2 (09:00→21:36)
[2017-05-27] MEDS: FAMOTIDINE 20MG TABLET GT SCH ×2 (09:00→21:36)
[2017-05-27] MEDS: ASCORBIC ACID 500 MG TABLET GT SCH (09:00)
[2017-05-27] MEDS: DEXT 5%/LACTATED RINGERS 1,000 ML IV SCH (09:29)
[2017-05-27] MEDS: NICARDIPINE 50 MG in SODIUM CHLORIDE 0.9% 230 ML IV PRN ×2 (09:31→21:37)
[2017-05-27] MEDS ORDERED: CEFAZOLIN 1000MG PREMIX 50 ML IV SCH (14:00)
[2017-05-27] MEDS ORDERED: CEFAZOLIN SODIUM 1000MG/VIAL IV SCH (14:00)
[2017-05-27] MEDS: FERROUS SULFATE 300MG/5ML UDC GT SCH (14:37)
[2017-05-27] MEDS: SILVER SULFADIAZINE 1% CREAM 50GM TOP SCH (16:30)
[2017-05-28] VITALS (90 sets, daily range): BP systolic 120–168; BP diastolic 62–110
[2017-05-28] MEDS: LEVETIRACETAM 500 MG in SODIUM CHLORIDE 0.9% 100 ML IV SCH ×2 (00:28→12:08)
[2017-05-28] MEDS: MINOXIDIL 2.5MG TABLET PEG SCH ×3 (05:17→17:18)
[2017-05-28] MEDS: HYDRALAZINE HCL 25MG TABLET PEG SCH (05:17)
[2017-05-28] MEDS: DEXT 5%/LACTATED RINGERS 1,000 ML IV SCH ×2 (05:18→18:07)
[2017-05-28] MEDS: TERAZOSIN HCL 5MG CAPSULE PO SCH ×3 (05:18→21:48)
[2017-05-28] MEDS: AMLODIPINE 2.5MG TABLET PEG SCH ×3 (05:18→17:18)
[2017-05-28] MEDS: SODIUM HYPOCHLORITE 0.125% 473ML SOLUTION TOP SCH (08:18)
[2017-05-28] MEDS: METOPROLOL TARTRATE 50MG TABLET PEG SCH ×3 (08:18→21:32)
[2017-05-28] MEDS: ASCORBIC ACID 500 MG TABLET GT SCH (08:18)
[2017-05-28] MEDS: SILVER SULFADIAZINE 1% CREAM 50GM TOP SCH (08:18)
[2017-05-28] MEDS: FAMOTIDINE 20MG TABLET GT SCH ×2 (08:18→21:48)
[2017-05-28] MEDS: FERROUS SULFATE 300MG/5ML UDC GT SCH (08:18)
[2017-05-28] MEDS: PHENYTOIN 100 MG/4 ML UDC NG SCH ×2 (08:18→16:41)
[2017-05-28] MEDS: NICARDIPINE 50 MG in SODIUM CHLORIDE 0.9% 230 ML IV PRN ×2 (09:20→22:08)
[2017-05-28] MEDS: HYDRALAZINE HCL 50MG TABLET PEG SCH ×2 (11:34→17:18)
[2017-05-29] VITALS (85 sets, daily range): BP systolic 109–164; BP diastolic 58–101
[2017-05-29] MEDS: HYDRALAZINE HCL 50MG TABLET PEG SCH ×4 (00:33→17:31)
[2017-05-29] MEDS: MINOXIDIL 2.5MG TABLET PEG SCH ×4 (00:33→17:33)
[2017-05-29] MEDS: AMLODIPINE 2.5MG TABLET PEG SCH ×4 (00:34→17:32)
[2017-05-29] MEDS: LEVETIRACETAM 500 MG in SODIUM CHLORIDE 0.9% 100 ML IV SCH ×2 (00:54→13:07)
[2017-05-29] MEDS: METOPROLOL TARTRATE 50MG TABLET PEG SCH ×3 (06:02→17:32)
[2017-05-29] MEDS: TERAZOSIN HCL 5MG CAPSULE PO SCH ×3 (06:03→22:04)
[2017-05-29 06:17] LABS: BASOPHILS % 0.6 % (0.0-2.0); EOSINOPHILS % 1.9 % (0.0-5.0); HEMATOCRIT. 23.7 % (42.0-52.0); HEMOGLOBIN. 7.7 g/dL (14.0-18.0); LYMPHOCYTES % 25.9 % (20.0-50.0); MEAN CORPUSCULAR HEMOGLOBIN 30.7 pg (28.0-32.0); MEAN CORPUSCULAR VOLUME 95.2 fL (80.0-94.0); MEAN PLATELET VOLUME 9.3 fl (7.4-10.4); MONOCYTES % 9.9 % (2.0-8.0); NEUTROPHILS % 61.7 % (40.0-76.0); PLATELET 175 x1000/uL (130-400); RED BLOOD CELL COUNT 2.49 mill/uL (4.7-6.1); RED CELL DISTRIBUTION WIDTH 16.8 % (11.6-14.6)
[2017-05-29 06:24] LABS: CARBON DIOXIDE 34 mEq/L (21-32); CHLORIDE 105 mEq/L (98-107)
[2017-05-29] MEDS: NICARDIPINE 50 MG in SODIUM CHLORIDE 0.9% 230 ML IV PRN (06:34)
[2017-05-29 09:02] LABS: BG BASE EXCESS 5.5 mmol/L (-2.0-2.0); BG CARBOXYHEMOGLOBIN 0.3 % (0.5-1.5); BG DEOXYHEMOGLOBIN 0.9 % (0.0-5.0); BG FRACTION INSPIRED OXYGEN 35; BG HCO3 ACT 29.5 mmol/L (22.0-26.0); BG METHEMOGLOBIN 0.3 % (0.0-1.5); BG OXYGEN SATURATION 99.1 % (92.0-98.5); BG OXYHEMOGLOBIN 98.5 % (94.0-97.0); BG PCO2 40.9 mmHg (35.0-45.0); BG PH 7.476 (7.350-7.450); BG PO2 182.4 mmHg (75.0-100.0); BG PRESSURE SUPPORT 10; BG SAMPLE SITE RIGHT RADIAL; BG TIDAL VOLUME(mL) 500 mL; BG TOTAL HEMOGLOBIN 7.8 g/dL (12.0-18.0); BG VENT MODE VENT - SIMV; BG VENT RATE 8 set
[2017-05-29] MEDS: FERROUS SULFATE 300MG/5ML UDC GT SCH (09:29)
[2017-05-29] MEDS: FAMOTIDINE 20MG TABLET GT SCH ×2 (09:29→22:04)
[2017-05-29] MEDS: PHENYTOIN 100 MG/4 ML UDC NG SCH ×2 (09:29→17:33)
[2017-05-29] MEDS: ASCORBIC ACID 500 MG TABLET GT SCH (09:29)
[2017-05-29] MEDS: SODIUM HYPOCHLORITE 0.125% 473ML SOLUTION TOP SCH (09:30)
[2017-05-29] MEDS: SILVER SULFADIAZINE 1% CREAM 50GM TOP SCH (09:30)
[2017-05-29] MEDS: DEXT 5%/LACTATED RINGERS 1,000 ML IV SCH (10:39)
[2017-05-29] MEDS: SPIRONOLACTONE 25MG TABLET PO SCH (17:33)
[2017-05-30] VITALS (50 sets, daily range): BP systolic 116–178; BP diastolic 61–121
[2017-05-30] MEDS: MINOXIDIL 2.5MG TABLET PEG SCH ×4 (01:00→18:24)
[2017-05-30] MEDS: METOPROLOL TARTRATE 50MG TABLET PEG SCH ×4 (01:00→18:25)
[2017-05-30] MEDS: HYDRALAZINE HCL 50MG TABLET PEG SCH ×4 (01:00→18:25)
[2017-05-30] MEDS: LEVETIRACETAM 500 MG in SODIUM CHLORIDE 0.9% 100 ML IV SCH ×2 (01:01→11:49)
[2017-05-30] MEDS: AMLODIPINE 2.5MG TABLET PEG SCH ×4 (01:01→18:25)
[2017-05-30] MEDS: DEXT 5%/LACTATED RINGERS 1,000 ML IV SCH ×2 (03:26→19:45)
[2017-05-30] MEDS: TERAZOSIN HCL 5MG CAPSULE PO SCH ×3 (05:53→21:48)
[2017-05-30 06:03] LABS: EOSINOPHILS % 1.9 % (0.0-5.0); HEMATOCRIT. 23.2 % (42.0-52.0); HEMOGLOBIN. 7.7 g/dL (14.0-18.0); LYMPHOCYTES % 17.8 % (20.0-50.0); MEAN CORPUSCULAR HEMOGLOBIN 32.2 pg (28.0-32.0); MEAN CORPUSCULAR VOLUME 97.2 fL (80.0-94.0); MEAN PLATELET VOLUME 9.7 fl (7.4-10.4); MONOCYTES % 8.5 % (2.0-8.0); NEUTROPHILS % 70.8 % (40.0-76.0); PLATELET 182 x1000/uL (130-400); RED BLOOD CELL COUNT 2.39 mill/uL (4.7-6.1); RED CELL DISTRIBUTION WIDTH 16.9 % (11.6-14.6)
[2017-05-30 06:19] LABS: CARBON DIOXIDE 34 mEq/L (21-32); CHLORIDE 103 mEq/L (98-107)
[2017-05-30] MEDS: ASCORBIC ACID 500 MG TABLET GT SCH (09:44)
[2017-05-30] MEDS: FAMOTIDINE 20MG TABLET GT SCH ×2 (09:44→21:47)
[2017-05-30] MEDS: FERROUS SULFATE 300MG/5ML UDC GT SCH (09:44)
[2017-05-30] MEDS: PHENYTOIN 100 MG/4 ML UDC NG SCH ×2 (09:44→18:23)
[2017-05-30] MEDS: SILVER SULFADIAZINE 1% CREAM 50GM TOP SCH (09:49)
[2017-05-30] MEDS: SODIUM HYPOCHLORITE 0.125% 473ML SOLUTION TOP SCH (09:50)
[2017-05-30] MEDS: SPIRONOLACTONE 25MG TABLET PO SCH (09:58)
[2017-05-31] VITALS (26 sets, daily range): BP systolic 122–166; BP diastolic 61–90
[2017-05-31] MEDS: AMLODIPINE 2.5MG TABLET PEG SCH ×5 (00:49→23:10)
[2017-05-31] MEDS: LEVETIRACETAM 500 MG in SODIUM CHLORIDE 0.9% 100 ML IV SCH ×2 (00:49→12:28)
[2017-05-31] MEDS: MINOXIDIL 2.5MG TABLET PEG SCH ×5 (00:49→23:09)
[2017-05-31] MEDS: METOPROLOL TARTRATE 50MG TABLET PEG SCH ×5 (00:49→23:16)
[2017-05-31] MEDS: HYDRALAZINE HCL 50MG TABLET PEG SCH ×5 (00:50→23:16)
[2017-05-31 06:03] LABS: BASOPHILS % 1.1 % (0.0-2.0); EOSINOPHILS % 2.8 % (0.0-5.0); HEMATOCRIT. 21.8 % (42.0-52.0); HEMOGLOBIN. 7.4 g/dL (14.0-18.0); LYMPHOCYTES % 22.1 % (20.0-50.0); MEAN CORPUSCULAR HEMOGLOBIN 32.1 pg (28.0-32.0); MEAN CORPUSCULAR VOLUME 95.1 fL (80.0-94.0); MEAN PLATELET VOLUME 9.4 fl (7.4-10.4); MONOCYTES % 8.9 % (2.0-8.0); NEUTROPHILS % 65.1 % (40.0-76.0); PLATELET 158 x1000/uL (130-400); RED BLOOD CELL COUNT 2.29 mill/uL (4.7-6.1)
[2017-05-31 06:33] LABS: CHLORIDE 104 mEq/L (98-107)
[2017-05-31 06:37] LABS: CARBON DIOXIDE 32 mEq/L (21-32)
[2017-05-31] MEDS: TERAZOSIN HCL 5MG CAPSULE PO SCH ×3 (06:59→21:34)
[2017-05-31] MEDS: SPIRONOLACTONE 25MG TABLET PO SCH (08:17)
[2017-05-31] MEDS: FAMOTIDINE 20MG TABLET GT SCH ×2 (08:17→21:42)
[2017-05-31] MEDS: ASCORBIC ACID 500 MG TABLET GT SCH (08:17)
[2017-05-31] MEDS: PHENYTOIN 100 MG/4 ML UDC NG SCH ×2 (08:18→17:04)
[2017-05-31] MEDS: FERROUS SULFATE 300MG/5ML UDC GT SCH (08:18)
[2017-05-31] MEDS: SODIUM HYPOCHLORITE 0.125% 473ML SOLUTION TOP SCH (08:19)
[2017-05-31] MEDS: SILVER SULFADIAZINE 1% CREAM 50GM TOP SCH (08:19)
[2017-05-31] MEDS: LEVETIRACETAM 500MG/5ML CUP PO SCH (21:42)
[2017-06-01] VITALS (19 sets, daily range): BP systolic 119–172; BP diastolic 66–98
[2017-06-01] MEDS: HYDRALAZINE HCL 50MG TABLET PEG SCH ×4 (05:07→23:33)
[2017-06-01] MEDS: MINOXIDIL 2.5MG TABLET PEG SCH ×4 (05:07→23:31)
[2017-06-01] MEDS: METOPROLOL TARTRATE 50MG TABLET PEG SCH ×4 (05:08→23:32)
[2017-06-01] MEDS: TERAZOSIN HCL 5MG CAPSULE PO SCH ×3 (05:08→21:43)
[2017-06-01] MEDS: AMLODIPINE 2.5MG TABLET PEG SCH ×4 (05:08→23:31)
[2017-06-01 07:06] LABS: EOSINOPHILS % 1.8 % (0.0-5.0); HEMATOCRIT. 21.7 % (42.0-52.0); HEMOGLOBIN. 7.1 g/dL (14.0-18.0); LYMPHOCYTES % 15.5 % (20.0-50.0); MEAN CORPUSCULAR HEMOGLOBIN 31.2 pg (28.0-32.0); MEAN CORPUSCULAR VOLUME 95.3 fL (80.0-94.0); MONOCYTES % 8.8 % (2.0-8.0); NEUTROPHILS % 72.9 % (40.0-76.0); PLATELET 177 x1000/uL (130-400); RED BLOOD CELL COUNT 2.28 mill/uL (4.7-6.1); RED CELL DISTRIBUTION WIDTH 16.8 % (11.6-14.6)
[2017-06-01 07:49] LABS: CARBON DIOXIDE 34 mEq/L (21-32); CHLORIDE 103 mEq/L (98-107)
[2017-06-01] MEDS: LEVETIRACETAM 500MG/5ML CUP PO SCH ×2 (08:51→21:42)
[2017-06-01] MEDS: SPIRONOLACTONE 25MG TABLET PO SCH (08:51)
[2017-06-01] MEDS: PHENYTOIN 100 MG/4 ML UDC NG SCH ×2 (08:51→17:05)
[2017-06-01] MEDS: FERROUS SULFATE 300MG/5ML UDC GT SCH (08:51)
[2017-06-01] MEDS: ASCORBIC ACID 500 MG TABLET GT SCH (08:51)
[2017-06-01] MEDS: SILVER SULFADIAZINE 1% CREAM 50GM TOP SCH (08:54)
[2017-06-01] MEDS: SODIUM HYPOCHLORITE 0.125% 473ML SOLUTION TOP SCH (08:54)
[2017-06-01] MEDS: FAMOTIDINE 20MG TABLET GT SCH ×2 (09:05→21:43)
[2017-06-02] VITALS (12 sets, daily range): BP systolic 121–167; BP diastolic 67–105
[2017-06-02] MEDS: HYDRALAZINE HCL 50MG TABLET PEG SCH ×3 (06:37→17:25)
[2017-06-02] MEDS: METOPROLOL TARTRATE 50MG TABLET PEG SCH ×3 (06:37→17:25)
[2017-06-02] MEDS: AMLODIPINE 2.5MG TABLET PEG SCH ×3 (06:37→17:24)
[2017-06-02] MEDS: TERAZOSIN HCL 5MG CAPSULE PO SCH ×3 (06:38→21:37)
[2017-06-02] MEDS: MINOXIDIL 2.5MG TABLET PEG SCH ×3 (06:38→17:24)
[2017-06-02 08:45] LABS: BG BASE EXCESS 12.7 mmol/L (-2.0-2.0); BG CARBOXYHEMOGLOBIN 0.1 % (0.5-1.5); BG DEOXYHEMOGLOBIN 2.1 % (0.0-5.0); BG FRACTION INSPIRED OXYGEN 30; BG HCO3 ACT 37.5 mmol/L (22.0-26.0); BG METHEMOGLOBIN 0.1 % (0.0-1.5); BG OXYGEN SATURATION 97.9 % (92.0-98.5); BG OXYHEMOGLOBIN 97.7 % (94.0-97.0); BG PCO2 51.2 mmHg (35.0-45.0); BG PH 7.483 (7.350-7.450); BG PO2 118.6 mmHg (75.0-100.0); BG PRESSURE SUPPORT 8; BG SAMPLE SITE RIGHT BRACHIAL; BG TIDAL VOLUME(mL) 500 mL; BG TOTAL HEMOGLOBIN 7.9 g/dL (12.0-18.0); BG VENT MODE VENT - SIMV; BG VENT RATE 6 set
[2017-06-02] MEDS: FERROUS SULFATE 300MG/5ML UDC GT SCH (08:46)
[2017-06-02] MEDS: ASCORBIC ACID 500 MG TABLET GT SCH (08:46)
[2017-06-02] MEDS: SILVER SULFADIAZINE 1% CREAM 50GM TOP SCH (08:46)
[2017-06-02] MEDS: SODIUM HYPOCHLORITE 0.125% 473ML SOLUTION TOP SCH (08:46)
[2017-06-02] MEDS: FAMOTIDINE 20MG TABLET GT SCH ×2 (08:46→21:37)
[2017-06-02] MEDS: PHENYTOIN 100 MG/4 ML UDC NG SCH ×2 (08:46→17:24)
[2017-06-02] MEDS: SPIRONOLACTONE 25MG TABLET PO SCH (08:46)
[2017-06-02] MEDS: LEVETIRACETAM 500MG/5ML CUP PO SCH ×2 (08:46→21:31)
[2017-06-03] VITALS (12 sets, daily range): BP systolic 111–183; BP diastolic 60–94
[2017-06-03] MEDS: AMLODIPINE 2.5MG TABLET PEG SCH ×4 (00:36→17:13)
[2017-06-03] MEDS: MINOXIDIL 2.5MG TABLET PEG SCH ×4 (00:37→17:12)
[2017-06-03] MEDS: HYDRALAZINE HCL 50MG TABLET PEG SCH ×4 (00:37→17:12)
[2017-06-03] MEDS: METOPROLOL TARTRATE 50MG TABLET PEG SCH ×4 (00:37→17:13)
[2017-06-03] MEDS: TERAZOSIN HCL 5MG CAPSULE PO SCH ×3 (07:00→21:47)
[2017-06-03] MEDS: FAMOTIDINE 20MG TABLET GT SCH ×2 (08:24→21:48)
[2017-06-03] MEDS: PHENYTOIN 100 MG/4 ML UDC NG SCH ×2 (08:24→17:12)
[2017-06-03] MEDS: FERROUS SULFATE 300MG/5ML UDC GT SCH (08:24)
[2017-06-03] MEDS: SPIRONOLACTONE 25MG TABLET PO SCH (08:24)
[2017-06-03] MEDS: LEVETIRACETAM 500MG/5ML CUP PO SCH ×2 (08:24→21:47)
[2017-06-03] MEDS: ASCORBIC ACID 500 MG TABLET GT SCH (08:24)
[2017-06-03] MEDS: SODIUM HYPOCHLORITE 0.125% 473ML SOLUTION TOP SCH (08:25)
[2017-06-03] MEDS: SILVER SULFADIAZINE 1% CREAM 50GM TOP SCH (08:25)
[2017-06-04] VITALS (13 sets, daily range): BP systolic 115–184; BP diastolic 64–104
[2017-06-04] MEDS: AMLODIPINE 2.5MG TABLET PEG SCH ×5 (00:03→17:18)
[2017-06-04] MEDS: MINOXIDIL 2.5MG TABLET PEG SCH ×5 (00:03→17:17)
[2017-06-04] MEDS: HYDRALAZINE HCL 50MG TABLET PEG SCH ×5 (00:04→17:17)
[2017-06-04] MEDS: METOPROLOL TARTRATE 50MG TABLET PEG SCH ×5 (00:04→17:18)
[2017-06-04] MEDS: TERAZOSIN HCL 5MG CAPSULE PO SCH ×3 (05:55→21:37)
[2017-06-04 06:51] LABS: BASOPHILS % 0.7 % (0.0-2.0); EOSINOPHILS % 0.1 % (0.0-5.0); HEMATOCRIT. 28.3 % (42.0-52.0); HEMOGLOBIN. 9.2 g/dL (14.0-18.0); LYMPHOCYTES % 10.8 % (20.0-50.0); MEAN CORPUSCULAR HEMOGLOBIN 30.1 pg (28.0-32.0); MEAN CORPUSCULAR VOLUME 92.5 fL (80.0-94.0); MEAN PLATELET VOLUME 9.2 fl (7.4-10.4); MONOCYTES % 9.2 % (2.0-8.0); NEUTROPHILS % 79.2 % (40.0-76.0); PLATELET 326 x1000/uL (130-400); RED BLOOD CELL COUNT 3.06 mill/uL (4.7-6.1); RED CELL DISTRIBUTION WIDTH 18.7 % (11.6-14.6)
[2017-06-04 08:19] LABS: CARBON DIOXIDE 36 mEq/L (21-32); CHLORIDE 102 mEq/L (98-107)
[2017-06-04] MEDS ORDERED: IPRATROPIUM/ALBUTEROL 0.5-3(2.5)MG/3ML NEB HHN PRN (09:15)
[2017-06-04] MEDS: ASCORBIC ACID 500 MG TABLET GT SCH (09:30)
[2017-06-04] MEDS: FAMOTIDINE 20MG TABLET GT SCH ×2 (09:30→21:38)
[2017-06-04] MEDS: FERROUS SULFATE 300MG/5ML UDC GT SCH (09:30)
[2017-06-04] MEDS: SPIRONOLACTONE 25MG TABLET PO SCH (09:30)
[2017-06-04] MEDS: PHENYTOIN 100 MG/4 ML UDC NG SCH ×2 (09:30→17:17)
[2017-06-04] MEDS: LEVETIRACETAM 500MG/5ML CUP PO SCH ×2 (09:31→21:38)
[2017-06-04] MEDS: SILVER SULFADIAZINE 1% CREAM 50GM TOP SCH (09:31)
[2017-06-04] MEDS: SODIUM HYPOCHLORITE 0.125% 473ML SOLUTION TOP SCH (09:31)
[2017-06-04 10:48] LABS: BG BASE EXCESS 11.4 mmol/L (-2.0-2.0); BG CARBOXYHEMOGLOBIN 0.1 % (0.5-1.5); BG DEOXYHEMOGLOBIN 2.5 % (0.0-5.0); BG FRACTION INSPIRED OXYGEN 60; BG METHEMOGLOBIN 0.3 % (0.0-1.5); BG OXYGEN SATURATION 97.5 % (92.0-98.5); BG OXYHEMOGLOBIN 97.1 % (94.0-97.0); BG PCO2 48.8 mmHg (35.0-45.0); BG PH 7.486 (7.350-7.450); BG PO2 99.9 mmHg (75.0-100.0); BG SAMPLE SITE RIGHT RADIAL; BG TIDAL VOLUME(mL) 500 mL; BG TOTAL HEMOGLOBIN 8.9 g/dL (12.0-18.0); BG VENT MODE VENT - A/C; BG VENT RATE 12 set
[2017-06-04] MEDS: PIPERACILLIN/TAZ 3.375G PREMIX 50 ML IV SCH ×2 (14:16→21:50)
[2017-06-04] MEDS: IPRATROPIUM/ALBUTEROL 0.5-3(2.5)MG/3ML NEB HHN SCH ×2 (14:32→20:31)
[2017-06-04] MEDS ORDERED: VANCOMYCIN 1500MG in DEXTROSE 5% WATER 250ML IV NR (17:00)
[2017-06-05] VITALS (11 sets, daily range): BP systolic 103–158; BP diastolic 57–97
[2017-06-05] MEDS: VANCOMYCIN 750 MG PREMIX 150 ML IV SCH ×3 (00:09→17:07)
[2017-06-05] MEDS: MINOXIDIL 2.5MG TABLET PEG SCH ×4 (00:57→17:07)
[2017-06-05] MEDS: METOPROLOL TARTRATE 50MG TABLET PEG SCH ×4 (00:57→17:07)
[2017-06-05] MEDS: HYDRALAZINE HCL 50MG TABLET PEG SCH ×4 (00:57→17:07)
[2017-06-05] MEDS: AMLODIPINE 2.5MG TABLET PEG SCH ×4 (00:57→17:08)
[2017-06-05] MEDS: IPRATROPIUM/ALBUTEROL 0.5-3(2.5)MG/3ML NEB HHN SCH ×4 (02:10→20:16)
[2017-06-05] MEDS: TERAZOSIN HCL 5MG CAPSULE PO SCH ×3 (05:43→21:30)
[2017-06-05] MEDS: PIPERACILLIN/TAZ 3.375G PREMIX 50 ML IV SCH ×3 (05:43→21:29)
[2017-06-05 07:07] LABS: CHLORIDE 102 mEq/L (98-107)
[2017-06-05 07:22] LABS: CARBON DIOXIDE 36 mEq/L (21-32); CREATINE KINASE 26 IU/L (39-308)
[2017-06-05] MEDS ORDERED: PHENYTOIN SODIUM 500 MG in SODIUM CHLORIDE 0.9% 50 ML IV SCH (08:30)
[2017-06-05] MEDS: PHENYTOIN 100 MG/4 ML UDC NG SCH ×2 (08:54→17:07)
[2017-06-05] MEDS: FERROUS SULFATE 300MG/5ML UDC GT SCH (08:54)
[2017-06-05] MEDS: SILVER SULFADIAZINE 1% CREAM 50GM TOP SCH (08:54)
[2017-06-05] MEDS: SODIUM HYPOCHLORITE 0.125% 473ML SOLUTION TOP SCH (08:54)
[2017-06-05] MEDS: FAMOTIDINE 20MG TABLET GT SCH ×2 (08:54→21:29)
[2017-06-05] MEDS: SPIRONOLACTONE 25MG TABLET PO SCH (08:54)
[2017-06-05] MEDS: ASCORBIC ACID 500 MG TABLET GT SCH (08:54)
[2017-06-05] MEDS: LEVETIRACETAM 500MG/5ML CUP PO SCH ×2 (09:04→21:29)
[2017-06-05 11:44] LABS: KETONES URINE NEGATIVE (NEGATIVE); LEUKOCYTE ESTERASE URINE 2+ (NEGATIVE); NITRITE URINE NEGATIVE (NEGATIVE); OCCULT BLOOD URINE NEGATIVE (NEGATIVE); PROTEIN URINE 2+ (NEGATIVE); SPECIFIC GRAVITY URINE 1.022 (1.005-1.030); UROBILINOGEN URINE 0.2 E.U./dL (0.2-1.0)
[2017-06-05 11:46] LABS: CLARITY URINE CLEAR (CLEAR); COLOR URINE YELLOW (YELLOW)
[2017-06-06] VITALS (15 sets, daily range): BP systolic 112–169; BP diastolic 59–99
[2017-06-06] MEDS: AMLODIPINE 2.5MG TABLET PEG SCH ×3 (00:21→18:06)
[2017-06-06] MEDS: METOPROLOL TARTRATE 50MG TABLET PEG SCH ×3 (00:21→18:06)
[2017-06-06] MEDS: MINOXIDIL 2.5MG TABLET PEG SCH ×3 (00:21→18:06)
[2017-06-06] MEDS: HYDRALAZINE HCL 50MG TABLET PEG SCH ×3 (00:22→18:06)
[2017-06-06] MEDS: VANCOMYCIN 750 MG PREMIX 150 ML IV SCH (00:25)
[2017-06-06] MEDS: IPRATROPIUM/ALBUTEROL 0.5-3(2.5)MG/3ML NEB HHN SCH ×4 (01:25→19:43)
[2017-06-06 09:46] LABS: BG BASE EXCESS 15.4 mmol/L (-2.0-2.0); BG CARBOXYHEMOGLOBIN 0.6 % (0.5-1.5); BG DEOXYHEMOGLOBIN 0.8 % (0.0-5.0); BG FRACTION INSPIRED OXYGEN 60; BG HCO3 ACT 39.9 mmol/L (22.0-26.0); BG METHEMOGLOBIN 0.8 % (0.0-1.5); BG OXYGEN SATURATION 99.2 % (92.0-98.5); BG OXYHEMOGLOBIN 97.8 % (94.0-97.0); BG PH 7.511 (7.350-7.450); BG PO2 183.9 mmHg (75.0-100.0); BG PRESSURE SUPPORT 10; BG SAMPLE SITE RIGHT BRACHIAL; BG TIDAL VOLUME(mL) 500 mL; BG TOTAL HEMOGLOBIN 6.9 g/dL (12.0-18.0); BG VENT MODE VENT - SIMV; BG VENT RATE 8 set
[2017-06-06 13:25] LABS: CARBON DIOXIDE 38 mEq/L (21-32); CHLORIDE 100 mEq/L (98-107)
[2017-06-06 13:28] LABS: VANCOMYCIN TROUGH 43.1 ug/mL (5.0-10.0)
[2017-06-06 13:35] LABS: BASOPHILS % 1.1 % (0.0-2.0); EOSINOPHILS % 2.1 % (0.0-5.0); LYMPHOCYTES % 23.3 % (20.0-50.0); MEAN CORPUSCULAR HEMOGLOBIN 31.4 pg (28.0-32.0); MEAN CORPUSCULAR VOLUME 93.8 fL (80.0-94.0); MEAN PLATELET VOLUME 9.3 fl (7.4-10.4); MONOCYTES % 11.2 % (2.0-8.0); NEUTROPHILS % 62.3 % (40.0-76.0); PLATELET 220 x1000/uL (130-400); RED BLOOD CELL COUNT 2.23 mill/uL (4.7-6.1); RED CELL DISTRIBUTION WIDTH 18.2 % (11.6-14.6)
[2017-06-06] MEDS: TERAZOSIN HCL 5MG CAPSULE PO SCH ×2 (15:17→21:07)
[2017-06-06] MEDS: PIPERACILLIN/TAZ 3.375G PREMIX 50 ML IV SCH ×2 (15:17→21:07)
[2017-06-06 17:47] LABS: BG BASE EXCESS 14.1 mmol/L (-2.0-2.0); BG CARBOXYHEMOGLOBIN 0.5 % (0.5-1.5); BG DEOXYHEMOGLOBIN 2.3 % (0.0-5.0); BG FRACTION INSPIRED OXYGEN 60; BG HCO3 ACT 39.1 mmol/L (22.0-26.0); BG METHEMOGLOBIN 0.2 % (0.0-1.5); BG OXYGEN SATURATION 97.7 % (92.0-98.5); BG PCO2 53.8 mmHg (35.0-45.0); BG PH 7.479 (7.350-7.450); BG PO2 102.6 mmHg (75.0-100.0); BG SAMPLE SITE RIGHT RADIAL; BG TIDAL VOLUME(mL) 500 mL; BG TOTAL HEMOGLOBIN 7.6 g/dL (12.0-18.0); BG VENT MODE VENT - A/C; BG VENT RATE 12 set
[2017-06-06] MEDS: PHENYTOIN 100 MG/4 ML UDC NG SCH (18:05)
[2017-06-06] MEDS: LEVETIRACETAM 500MG/5ML CUP PO SCH (21:08)
[2017-06-06] MEDS: FAMOTIDINE 20MG TABLET GT SCH (21:08)
[2017-06-06] MEDS ORDERED: IOHEXOL-350 100 ML BOTTLE ONE (23:14)
[2017-06-07] VITALS (16 sets, daily range): BP systolic 105–167; BP diastolic 56–106
[2017-06-07] MEDS: HYDRALAZINE HCL 50MG TABLET PEG SCH ×5 (00:56→23:22)
[2017-06-07] MEDS: MINOXIDIL 2.5MG TABLET PEG SCH ×5 (00:56→23:22)
[2017-06-07] MEDS: METOPROLOL TARTRATE 50MG TABLET PEG SCH ×5 (00:57→23:23)
[2017-06-07] MEDS: AMLODIPINE 2.5MG TABLET PEG SCH ×5 (00:57→23:22)
[2017-06-07] MEDS: IPRATROPIUM/ALBUTEROL 0.5-3(2.5)MG/3ML NEB HHN SCH ×5 (01:57→20:40)
[2017-06-07] MEDS: PIPERACILLIN/TAZ 3.375G PREMIX 50 ML IV SCH ×3 (05:07→22:15)
[2017-06-07] MEDS: TERAZOSIN HCL 5MG CAPSULE PO SCH ×3 (05:11→21:33)
[2017-06-07] MEDS: VANCOMYCIN 750 MG PREMIX 150 ML IV SCH ×2 (05:13→17:11)
[2017-06-07 06:55] LABS: BASOPHILS % 0.9 % (0.0-2.0); EOSINOPHILS % 0.9 % (0.0-5.0); HEMATOCRIT. 23.4 % (42.0-52.0); HEMOGLOBIN. 7.9 g/dL (14.0-18.0); LYMPHOCYTES % 12.5 % (20.0-50.0); MEAN CORPUSCULAR HEMOGLOBIN 30.5 pg (28.0-32.0); MEAN CORPUSCULAR VOLUME 90.8 fL (80.0-94.0); MEAN PLATELET VOLUME 9.5 fl (7.4-10.4); MONOCYTES % 10.2 % (2.0-8.0); NEUTROPHILS % 75.5 % (40.0-76.0); PLATELET 226 x1000/uL (130-400); RED BLOOD CELL COUNT 2.57 mill/uL (4.7-6.1); RED CELL DISTRIBUTION WIDTH 19.1 % (11.6-14.6)
[2017-06-07 07:13] LABS: CHLORIDE 99 mEq/L (98-107)
[2017-06-07 07:17] LABS: CARBON DIOXIDE 37 mEq/L (21-32)
[2017-06-07 07:25] LABS: BG BASE EXCESS 15.2 mmol/L (-2.0-2.0); BG CARBOXYHEMOGLOBIN 0.6 % (0.5-1.5); BG DEOXYHEMOGLOBIN 5.4 % (0.0-5.0); BG HCO3 ACT 40.4 mmol/L (22.0-26.0); BG METHEMOGLOBIN 0.1 % (0.0-1.5); BG OXYGEN SATURATION 94.6 % (92.0-98.5); BG OXYHEMOGLOBIN 93.9 % (94.0-97.0); BG PCO2 55.3 mmHg (35.0-45.0); BG PH 7.481 (7.350-7.450); BG PO2 71.4 mmHg (75.0-100.0); BG SAMPLE SITE RIGHT BRACHIAL; BG TIDAL VOLUME(mL) 500 mL; BG TOTAL HEMOGLOBIN 7.7 g/dL (12.0-18.0); BG VENT MODE VENT - A/C; BG VENT RATE 12 set
[2017-06-07] MEDS: FERROUS SULFATE 300MG/5ML UDC GT SCH (09:19)
[2017-06-07] MEDS: ASCORBIC ACID 500 MG TABLET GT SCH (09:20)
[2017-06-07] MEDS: SPIRONOLACTONE 25MG TABLET PO SCH (09:20)
[2017-06-07] MEDS: LEVETIRACETAM 500MG/5ML CUP PO SCH ×2 (09:21→21:33)
[2017-06-07] MEDS: PHENYTOIN 100 MG/4 ML UDC NG SCH ×2 (09:21→17:12)
[2017-06-07] MEDS: SILVER SULFADIAZINE 1% CREAM 50GM TOP SCH (09:21)
[2017-06-07] MEDS: FAMOTIDINE 20MG TABLET GT SCH ×2 (09:21→21:33)
[2017-06-07] MEDS: SODIUM HYPOCHLORITE 0.125% 473ML SOLUTION TOP SCH (09:21)
[2017-06-07 16:37] LABS: EOSINOPHILS % 1.2 % (0.0-5.0); HEMATOCRIT. 22.3 % (42.0-52.0); HEMOGLOBIN. 7.3 g/dL (14.0-18.0); LYMPHOCYTES % 14.4 % (20.0-50.0); MEAN CORPUSCULAR HEMOGLOBIN 29.8 pg (28.0-32.0); MEAN CORPUSCULAR VOLUME 90.5 fL (80.0-94.0); MONOCYTES % 9.5 % (2.0-8.0); NEUTROPHILS % 73.9 % (40.0-76.0); PLATELET 219 x1000/uL (130-400); RED BLOOD CELL COUNT 2.46 mill/uL (4.7-6.1); RED CELL DISTRIBUTION WIDTH 18.8 % (11.6-14.6)
[2017-06-07] MEDS: ACETYLCYSTEINE 100MG/ML 10% VIAL 4ML INH SCH (20:59)
[2017-06-08] VITALS (12 sets, daily range): BP systolic 119–167; BP diastolic 62–86
[2017-06-08] MEDS: ACETYLCYSTEINE 100MG/ML 10% VIAL 4ML INH SCH ×6 (00:47→20:25)
[2017-06-08] MEDS: IPRATROPIUM/ALBUTEROL 0.5-3(2.5)MG/3ML NEB HHN SCH ×4 (02:45→16:04)
[2017-06-08] MEDS: VANCOMYCIN 750 MG PREMIX 150 ML IV SCH ×2 (05:32→17:55)
[2017-06-08] MEDS: HYDRALAZINE HCL 50MG TABLET PEG SCH ×4 (05:33→23:16)
[2017-06-08] MEDS: MINOXIDIL 2.5MG TABLET PEG SCH ×4 (05:33→23:16)
[2017-06-08] MEDS: METOPROLOL TARTRATE 50MG TABLET PEG SCH ×4 (05:33→23:16)
[2017-06-08] MEDS: TERAZOSIN HCL 5MG CAPSULE PO SCH ×3 (05:34→21:51)
[2017-06-08] MEDS: AMLODIPINE 2.5MG TABLET PEG SCH ×4 (05:34→23:15)
[2017-06-08] MEDS: PIPERACILLIN/TAZ 3.375G PREMIX 50 ML IV SCH ×3 (05:35→21:50)
[2017-06-08 08:40] LABS: EOSINOPHILS % 2.7 % (0.0-5.0); HEMOGLOBIN. 8.4 g/dL (14.0-18.0); LYMPHOCYTES % 23.5 % (20.0-50.0); MEAN CORPUSCULAR HEMOGLOBIN 30.4 pg (28.0-32.0); MEAN CORPUSCULAR VOLUME 90.5 fL (80.0-94.0); MEAN PLATELET VOLUME 9.5 fl (7.4-10.4); MONOCYTES % 8.9 % (2.0-8.0); NEUTROPHILS % 63.9 % (40.0-76.0); PLATELET 223 x1000/uL (130-400); RED BLOOD CELL COUNT 2.76 mill/uL (4.7-6.1); RED CELL DISTRIBUTION WIDTH 17.5 % (11.6-14.6)
[2017-06-08 09:01] LABS: CARBON DIOXIDE 37 mEq/L (21-32); CHLORIDE 101 mEq/L (98-107)
[2017-06-08 09:02] LABS: TOTAL IRON BINDING CAPACITY 93 ug/dL (250-450)
[2017-06-08] MEDS: LEVETIRACETAM 500MG/5ML CUP PO SCH ×2 (09:21→20:50)
[2017-06-08] MEDS: FERROUS SULFATE 300MG/5ML UDC GT SCH (09:21)
[2017-06-08] MEDS: SILVER SULFADIAZINE 1% CREAM 50GM TOP SCH (09:22)
[2017-06-08] MEDS: ASCORBIC ACID 500 MG TABLET GT SCH (09:22)
[2017-06-08] MEDS: PHENYTOIN 100 MG/4 ML UDC NG SCH ×2 (09:22→17:55)
[2017-06-08] MEDS: FAMOTIDINE 20MG TABLET GT SCH ×2 (09:22→20:50)
[2017-06-08] MEDS: SPIRONOLACTONE 25MG TABLET PO SCH (09:22)
[2017-06-08] MEDS: SODIUM HYPOCHLORITE 0.125% 473ML SOLUTION TOP SCH (09:23)
[2017-06-08] MEDS ORDERED: ALBUTEROL (0.083%) 2.5MG/3ML NEB HHN PRN (16:45)
[2017-06-08] MEDS: ALBUTEROL (0.083%) 2.5MG/3ML NEB HHN SCH (20:24)
[2017-06-09] VITALS (12 sets, daily range): BP systolic 121–176; BP diastolic 68–102
[2017-06-09] MEDS: ALBUTEROL (0.083%) 2.5MG/3ML NEB HHN SCH ×6 (00:29→20:11)
[2017-06-09] MEDS: MINOXIDIL 2.5MG TABLET PEG SCH ×4 (04:27→23:27)
[2017-06-09] MEDS: HYDRALAZINE HCL 50MG TABLET PEG SCH ×4 (04:27→23:26)
[2017-06-09] MEDS: METOPROLOL TARTRATE 50MG TABLET PEG SCH ×4 (04:27→23:26)
[2017-06-09] MEDS: AMLODIPINE 2.5MG TABLET PEG SCH ×4 (04:28→23:27)
[2017-06-09 04:29] LABS: EOSINOPHILS % 2.8 % (0.0-5.0); HEMATOCRIT. 28.5 % (42.0-52.0); HEMOGLOBIN. 9.6 g/dL (14.0-18.0); LYMPHOCYTES % 20.3 % (20.0-50.0); MEAN CORPUSCULAR VOLUME 91.9 fL (80.0-94.0); MEAN PLATELET VOLUME 8.9 fl (7.4-10.4); MONOCYTES % 8.4 % (2.0-8.0); NEUTROPHILS % 67.5 % (40.0-76.0); PLATELET 238 x1000/uL (130-400); RED BLOOD CELL COUNT 3.11 mill/uL (4.7-6.1); RED CELL DISTRIBUTION WIDTH 17.9 % (11.6-14.6)
[2017-06-09 04:47] LABS: CARBON DIOXIDE 35 mEq/L (21-32); CHLORIDE 100 mEq/L (98-107); VANCOMYCIN TROUGH 33.9 ug/mL (5.0-10.0)
[2017-06-09] MEDS: VANCOMYCIN 750 MG PREMIX 150 ML IV SCH (05:20)
[2017-06-09] MEDS: TERAZOSIN HCL 5MG CAPSULE PO SCH ×3 (05:27→21:49)
[2017-06-09] MEDS: PIPERACILLIN/TAZ 3.375G PREMIX 50 ML IV SCH ×3 (05:29→21:49)
[2017-06-09] MEDS: ACETYLCYSTEINE 100MG/ML 10% VIAL 4ML INH SCH ×2 (07:36→15:43)
[2017-06-09] MEDS: SILVER SULFADIAZINE 1% CREAM 50GM TOP SCH (09:00)
[2017-06-09] MEDS: ASCORBIC ACID 500 MG TABLET GT SCH (12:05)
[2017-06-09] MEDS: FAMOTIDINE 20MG TABLET GT SCH ×2 (12:05→21:49)
[2017-06-09] MEDS: FERROUS SULFATE 300MG/5ML UDC GT SCH (12:05)
[2017-06-09] MEDS: PHENYTOIN 100 MG/4 ML UDC NG SCH ×2 (12:06→18:19)
[2017-06-09] MEDS: LEVETIRACETAM 500MG/5ML CUP PO SCH ×2 (12:06→21:49)
[2017-06-09] MEDS: SODIUM HYPOCHLORITE 0.125% 473ML SOLUTION TOP SCH (12:07)
[2017-06-09] MEDS: SPIRONOLACTONE 25MG TABLET PO SCH (12:18)
[2017-06-10] VITALS (12 sets, daily range): BP systolic 118–175; BP diastolic 65–91
[2017-06-10] MEDS: ALBUTEROL (0.083%) 2.5MG/3ML NEB HHN SCH ×6 (00:17→20:42)
[2017-06-10] MEDS: ACETYLCYSTEINE 100MG/ML 10% VIAL 4ML INH SCH ×4 (00:17→15:13)
[2017-06-10] MEDS: HYDRALAZINE HCL 50MG TABLET PEG SCH ×3 (05:10→18:35)
[2017-06-10] MEDS: AMLODIPINE 2.5MG TABLET PEG SCH ×3 (05:10→18:26)
[2017-06-10] MEDS: TERAZOSIN HCL 5MG CAPSULE PO SCH ×3 (05:10→21:31)
[2017-06-10] MEDS: MINOXIDIL 2.5MG TABLET PEG SCH ×3 (05:11→18:35)
[2017-06-10] MEDS: METOPROLOL TARTRATE 50MG TABLET PEG SCH ×3 (05:11→18:31)
[2017-06-10] MEDS: PIPERACILLIN/TAZ 3.375G PREMIX 50 ML IV SCH ×3 (05:12→21:30)
[2017-06-10 06:23] LABS: BASOPHILS % 0.9 % (0.0-2.0); EOSINOPHILS % 2.2 % (0.0-5.0); HEMATOCRIT. 28.7 % (42.0-52.0); HEMOGLOBIN. 9.4 g/dL (14.0-18.0); LYMPHOCYTES % 17.2 % (20.0-50.0); MEAN CORPUSCULAR HEMOGLOBIN 30.2 pg (28.0-32.0); MEAN CORPUSCULAR VOLUME 91.9 fL (80.0-94.0); MEAN PLATELET VOLUME 9.4 fl (7.4-10.4); NEUTROPHILS % 71.7 % (40.0-76.0); PLATELET 231 x1000/uL (130-400); RED BLOOD CELL COUNT 3.12 mill/uL (4.7-6.1); RED CELL DISTRIBUTION WIDTH 17.9 % (11.6-14.6)
[2017-06-10 07:47] LABS: CARBON DIOXIDE 35 mEq/L (21-32); CHLORIDE 102 mEq/L (98-107)
[2017-06-10] MEDS: VANCOMYCIN 1 G PREMIX 200 ML IV SCH (10:34)
[2017-06-10] MEDS: PHENYTOIN 100 MG/4 ML UDC NG SCH ×2 (10:34→18:26)
[2017-06-10] MEDS: LEVETIRACETAM 500MG/5ML CUP PO SCH ×2 (10:35→21:30)
[2017-06-10] MEDS: ASCORBIC ACID 500 MG TABLET GT SCH (10:35)
[2017-06-10] MEDS: FAMOTIDINE 20MG TABLET GT SCH ×2 (10:35→21:30)
[2017-06-10] MEDS: FERROUS SULFATE 300MG/5ML UDC GT SCH (10:35)
[2017-06-10] MEDS: SPIRONOLACTONE 25MG TABLET PO SCH (10:35)
[2017-06-10] MEDS: SODIUM HYPOCHLORITE 0.125% 473ML SOLUTION TOP SCH (10:36)
[2017-06-10] MEDS: SILVER SULFADIAZINE 1% CREAM 50GM TOP SCH (10:41)
[2017-06-11] VITALS (9 sets, daily range): BP systolic 113–154; BP diastolic 62–83
[2017-06-11] MEDS: ACETYLCYSTEINE 100MG/ML 10% VIAL 4ML INH SCH ×4 (00:23→23:49)
[2017-06-11] MEDS: ALBUTEROL (0.083%) 2.5MG/3ML NEB HHN SCH ×7 (00:23→23:49)
[2017-06-11] MEDS: MINOXIDIL 2.5MG TABLET PEG SCH ×5 (00:36→23:39)
[2017-06-11] MEDS: METOPROLOL TARTRATE 50MG TABLET PEG SCH ×5 (00:36→23:40)
[2017-06-11] MEDS: HYDRALAZINE HCL 50MG TABLET PEG SCH ×5 (00:36→23:39)
[2017-06-11] MEDS: AMLODIPINE 2.5MG TABLET PEG SCH ×5 (00:37→23:39)
[2017-06-11] MEDS: PIPERACILLIN/TAZ 3.375G PREMIX 50 ML IV SCH ×2 (06:51→13:07)
[2017-06-11 06:54] LABS: BASOPHILS % 1.1 % (0.0-2.0); EOSINOPHILS % 3.8 % (0.0-5.0); HEMATOCRIT. 26.2 % (42.0-52.0); HEMOGLOBIN. 8.7 g/dL (14.0-18.0); LYMPHOCYTES % 25.4 % (20.0-50.0); MEAN CORPUSCULAR HEMOGLOBIN 30.5 pg (28.0-32.0); MEAN PLATELET VOLUME 9.5 fl (7.4-10.4); MONOCYTES % 7.7 % (2.0-8.0); PLATELET 208 x1000/uL (130-400); RED BLOOD CELL COUNT 2.85 mill/uL (4.7-6.1)
[2017-06-11] MEDS: TERAZOSIN HCL 5MG CAPSULE PO SCH ×3 (07:01→21:41)
[2017-06-11 07:32] LABS: CARBON DIOXIDE 36 mEq/L (21-32); CHLORIDE 102 mEq/L (98-107)
[2017-06-11] MEDS: SPIRONOLACTONE 25MG TABLET PO SCH (08:48)
[2017-06-11] MEDS: FERROUS SULFATE 300MG/5ML UDC GT SCH (08:48)
[2017-06-11] MEDS: PHENYTOIN 100 MG/4 ML UDC NG SCH ×2 (08:48→17:26)
[2017-06-11] MEDS: FAMOTIDINE 20MG TABLET GT SCH ×2 (08:48→21:41)
[2017-06-11] MEDS: ASCORBIC ACID 500 MG TABLET GT SCH (08:48)
[2017-06-11] MEDS: SODIUM HYPOCHLORITE 0.125% 473ML SOLUTION TOP SCH (08:48)
[2017-06-11] MEDS: LEVETIRACETAM 500MG/5ML CUP PO SCH ×2 (08:48→21:41)
[2017-06-11] MEDS: SILVER SULFADIAZINE 1% CREAM 50GM TOP SCH (08:49)
[2017-06-11] MEDS: VANCOMYCIN 1 G PREMIX 200 ML IV SCH (10:46)
[2017-06-11] MEDS: MORPHINE SULFATE 10 MG/ML CPJ IV PRN (17:53)
[2017-06-12] VITALS (12 sets, daily range): BP systolic 100–173; BP diastolic 51–92
[2017-06-12] MEDS: ALBUTEROL (0.083%) 2.5MG/3ML NEB HHN SCH ×5 (04:16→20:09)
[2017-06-12] MEDS: AMLODIPINE 2.5MG TABLET PEG SCH ×4 (05:03→23:36)
[2017-06-12] MEDS: METOPROLOL TARTRATE 50MG TABLET PEG SCH ×4 (05:04→23:35)
[2017-06-12] MEDS: HYDRALAZINE HCL 50MG TABLET PEG SCH ×4 (05:04→23:35)
[2017-06-12] MEDS: MINOXIDIL 2.5MG TABLET PEG SCH ×4 (05:04→23:35)
[2017-06-12 06:09] LABS: CHLORIDE 103 mEq/L (98-107)
[2017-06-12 06:18] LABS: CARBON DIOXIDE 33 mEq/L (21-32)
[2017-06-12] MEDS: TERAZOSIN HCL 5MG CAPSULE PO SCH ×3 (06:28→21:18)
[2017-06-12 06:36] LABS: BASOPHILS % 0.8 % (0.0-2.0); EOSINOPHILS % 2.8 % (0.0-5.0); HEMATOCRIT. 27.9 % (42.0-52.0); HEMOGLOBIN. 9.4 g/dL (14.0-18.0); LYMPHOCYTES % 21.5 % (20.0-50.0); MEAN CORPUSCULAR VOLUME 92.3 fL (80.0-94.0); MEAN PLATELET VOLUME 9.7 fl (7.4-10.4); MONOCYTES % 9.1 % (2.0-8.0); NEUTROPHILS % 65.8 % (40.0-76.0); PLATELET 224 x1000/uL (130-400); RED BLOOD CELL COUNT 3.02 mill/uL (4.7-6.1); RED CELL DISTRIBUTION WIDTH 17.8 % (11.6-14.6)
[2017-06-12] MEDS: PHENYTOIN 100 MG/4 ML UDC NG SCH ×2 (09:06→17:22)
[2017-06-12] MEDS: FERROUS SULFATE 300MG/5ML UDC GT SCH (09:06)
[2017-06-12] MEDS: VANCOMYCIN 1 G PREMIX 200 ML IV SCH (09:06)
[2017-06-12] MEDS: LEVETIRACETAM 500MG/5ML CUP PO SCH ×2 (09:06→20:24)
[2017-06-12] MEDS: SILVER SULFADIAZINE 1% CREAM 50GM TOP SCH (09:07)
[2017-06-12] MEDS: MORPHINE SULFATE 10 MG/ML CPJ IV PRN (09:07)
[2017-06-12] MEDS: SPIRONOLACTONE 25MG TABLET PO SCH (09:07)
[2017-06-12] MEDS: ASCORBIC ACID 500 MG TABLET GT SCH (09:07)
[2017-06-12] MEDS: FAMOTIDINE 20MG TABLET GT SCH ×2 (09:07→20:26)
[2017-06-12] MEDS: SODIUM HYPOCHLORITE 0.125% 473ML SOLUTION TOP SCH (09:08)
[2017-06-12 09:29] LABS: BG BASE EXCESS 10.7 mmol/L (-2.0-2.0); BG CARBOXYHEMOGLOBIN 0.1 % (0.5-1.5); BG DEOXYHEMOGLOBIN 4.9 % (0.0-5.0); BG FRACTION INSPIRED OXYGEN 40; BG HCO3 ACT 35.7 mmol/L (22.0-26.0); BG METHEMOGLOBIN 0.4 % (0.0-1.5); BG OXYGEN SATURATION 95.1 % (92.0-98.5); BG OXYHEMOGLOBIN 94.6 % (94.0-97.0); BG PH 7.472 (7.350-7.450); BG PO2 74.8 mmHg (75.0-100.0); BG SAMPLE SITE RIGHT BRACHIAL; BG TIDAL VOLUME(mL) 550 mL; BG TOTAL HEMOGLOBIN 10.3 g/dL (12.0-18.0); BG VENT MODE VENT - A/C; BG VENT RATE 12 set
[2017-06-12] MEDS ORDERED: FUROSEMIDE 20MG/2ML VIAL IVP NR (11:30)
[2017-06-12] MEDS ORDERED: MORPHINE SULFATE 10 MG/ML CPJ IV NR (11:30)
[2017-06-12] MEDS: ACETYLCYSTEINE 100MG/ML 10% VIAL 4ML INH SCH ×2 (16:21→16:24)
[2017-06-13] VITALS (18 sets, daily range): BP systolic 101–218; BP diastolic 54–125
[2017-06-13] MEDS: ALBUTEROL (0.083%) 2.5MG/3ML NEB HHN SCH ×6 (00:19→20:19)
[2017-06-13] MEDS: TERAZOSIN HCL 5MG CAPSULE PO SCH ×3 (05:55→21:00)
[2017-06-13] MEDS: AMLODIPINE 2.5MG TABLET PEG SCH ×4 (05:56→23:17)
[2017-06-13] MEDS: METOPROLOL TARTRATE 50MG TABLET PEG SCH ×4 (05:56→23:18)
[2017-06-13] MEDS: HYDRALAZINE HCL 50MG TABLET PEG SCH ×4 (05:56→23:18)
[2017-06-13] MEDS: MINOXIDIL 2.5MG TABLET PEG SCH ×4 (05:58→23:17)
[2017-06-13 06:58] LABS: BASOPHILS % 1.1 % (0.0-2.0); HEMATOCRIT. 24.2 % (42.0-52.0); MEAN CORPUSCULAR HEMOGLOBIN 30.5 pg (28.0-32.0); MEAN CORPUSCULAR VOLUME 92.7 fL (80.0-94.0); MEAN PLATELET VOLUME 9.8 fl (7.4-10.4); NEUTROPHILS % 50.9 % (40.0-76.0); PLATELET 198 x1000/uL (130-400); RED BLOOD CELL COUNT 2.62 mill/uL (4.7-6.1); RED CELL DISTRIBUTION WIDTH 17.6 % (11.6-14.6)
[2017-06-13 07:30] LABS: CARBON DIOXIDE 36 mEq/L (21-32)
[2017-06-13 07:58] LABS: CHLORIDE 105 mEq/L (98-107)
[2017-06-13] MEDS: PHENYTOIN 100 MG/4 ML UDC NG SCH ×2 (08:07→17:11)
[2017-06-13] MEDS: FERROUS SULFATE 300MG/5ML UDC GT SCH (08:07)
[2017-06-13] MEDS: LEVETIRACETAM 500MG/5ML CUP PO SCH ×2 (08:07→21:03)
[2017-06-13] MEDS: SPIRONOLACTONE 25MG TABLET PO SCH (08:07)
[2017-06-13] MEDS: VANCOMYCIN 1 G PREMIX 200 ML IV SCH (08:08)
[2017-06-13] MEDS: FAMOTIDINE 20MG TABLET GT SCH ×2 (08:08→21:03)
[2017-06-13] MEDS: ASCORBIC ACID 500 MG TABLET GT SCH (08:08)
[2017-06-13] MEDS ORDERED: MORPHINE SULFATE 4 MG/ML CPJ (NOT FOR IM USE) IV PRN (10:54)
[2017-06-13] MEDS: SILVER SULFADIAZINE 1% CREAM 50GM TOP SCH (13:07)
[2017-06-13] MEDS: SODIUM HYPOCHLORITE 0.125% 473ML SOLUTION TOP SCH (13:07)
[2017-06-13] MEDS: PIPERACILLIN/TAZ 3.375G PREMIX 50 ML IV SCH ×2 (17:11→23:18)
[2017-06-14] VITALS (12 sets, daily range): BP systolic 111–150; BP diastolic 50–83
[2017-06-14] MEDS: ALBUTEROL (0.083%) 2.5MG/3ML NEB HHN SCH ×6 (00:31→20:06)
[2017-06-14] MEDS: PIPERACILLIN/TAZ 3.375G PREMIX 50 ML IV SCH ×4 (05:07→23:28)
[2017-06-14] MEDS: TERAZOSIN HCL 5MG CAPSULE PO SCH ×3 (05:13→21:30)
[2017-06-14] MEDS: MINOXIDIL 2.5MG TABLET PEG SCH ×4 (05:13→23:28)
[2017-06-14] MEDS: AMLODIPINE 2.5MG TABLET PEG SCH ×4 (05:14→23:27)
[2017-06-14] MEDS: METOPROLOL TARTRATE 50MG TABLET PEG SCH ×4 (05:14→23:27)
[2017-06-14] MEDS: HYDRALAZINE HCL 50MG TABLET PEG SCH ×4 (05:18→23:28)
[2017-06-14 06:01] LABS: HEMATOCRIT. 23.7 % (42.0-52.0); HEMOGLOBIN. 7.8 g/dL (14.0-18.0); LYMPHOCYTES % 27.9 % (20.0-50.0); MEAN CORPUSCULAR HEMOGLOBIN 30.8 pg (28.0-32.0); MEAN CORPUSCULAR VOLUME 93.1 fL (80.0-94.0); MEAN PLATELET VOLUME 9.6 fl (7.4-10.4); MONOCYTES % 8.8 % (2.0-8.0); NEUTROPHILS % 60.6 % (40.0-76.0); PLATELET 195 x1000/uL (130-400); RED BLOOD CELL COUNT 2.54 mill/uL (4.7-6.1); RED CELL DISTRIBUTION WIDTH 18.2 % (11.6-14.6)
[2017-06-14 06:02] LABS: BASOPHILS % 0.7 % (0.0-2.0)
[2017-06-14 06:42] LABS: CARBON DIOXIDE 35 mEq/L (21-32); CHLORIDE 105 mEq/L (98-107)
[2017-06-14] MEDS: LEVETIRACETAM 500MG/5ML CUP PO SCH ×2 (08:29→21:29)
[2017-06-14] MEDS: PHENYTOIN 100 MG/4 ML UDC NG SCH ×2 (08:30→17:12)
[2017-06-14] MEDS: FAMOTIDINE 20MG TABLET GT SCH ×2 (08:35→21:29)
[2017-06-14] MEDS: SODIUM HYPOCHLORITE 0.125% 473ML SOLUTION TOP SCH (08:36)
[2017-06-14] MEDS: SPIRONOLACTONE 25MG TABLET PO SCH (08:41)
[2017-06-15] VITALS (23 sets, daily range): BP systolic 107–178; BP diastolic 55–93
[2017-06-15] MEDS: ALBUTEROL (0.083%) 2.5MG/3ML NEB HHN SCH ×6 (00:19→19:54)
[2017-06-15] MEDS: AMLODIPINE 2.5MG TABLET PEG SCH ×4 (05:10→23:47)
[2017-06-15] MEDS: TERAZOSIN HCL 5MG CAPSULE PO SCH (05:11)
[2017-06-15] MEDS: HYDRALAZINE HCL 50MG TABLET PEG SCH ×4 (05:11→23:46)
[2017-06-15] MEDS: PIPERACILLIN/TAZ 3.375G PREMIX 50 ML IV SCH ×4 (05:11→23:46)
[2017-06-15] MEDS: METOPROLOL TARTRATE 50MG TABLET PEG SCH ×4 (05:11→23:46)
[2017-06-15] MEDS: MINOXIDIL 2.5MG TABLET PEG SCH ×4 (05:15→23:47)
[2017-06-15 06:41] LABS: BASOPHILS % 1.1 % (0.0-2.0); EOSINOPHILS % 2.9 % (0.0-5.0); HEMATOCRIT. 21.9 % (42.0-52.0); HEMOGLOBIN. 7.4 g/dL (14.0-18.0); LYMPHOCYTES % 26.1 % (20.0-50.0); MEAN CORPUSCULAR HEMOGLOBIN 31.4 pg (28.0-32.0); MEAN CORPUSCULAR VOLUME 92.8 fL (80.0-94.0); MEAN PLATELET VOLUME 9.5 fl (7.4-10.4); MONOCYTES % 10.5 % (2.0-8.0); NEUTROPHILS % 59.4 % (40.0-76.0); PLATELET 187 x1000/uL (130-400); RED BLOOD CELL COUNT 2.36 mill/uL (4.7-6.1); RED CELL DISTRIBUTION WIDTH 17.9 % (11.6-14.6)
[2017-06-15] MEDS: FAMOTIDINE 20MG TABLET GT SCH ×2 (09:49→21:35)
[2017-06-15] MEDS: PHENYTOIN 100 MG/4 ML UDC NG SCH ×2 (09:49→18:07)
[2017-06-15] MEDS: LEVETIRACETAM 500MG/5ML CUP PO SCH (09:49)
[2017-06-15] MEDS: SPIRONOLACTONE 25MG TABLET PO SCH (09:49)
[2017-06-15] MEDS: SODIUM HYPOCHLORITE 0.125% 473ML SOLUTION TOP SCH (09:50)
[2017-06-15] MEDS: TERAZOSIN HCL 5MG CAPSULE NG SCH ×2 (14:31→21:36)
[2017-06-15 17:35] LABS: HEMATOCRIT 27.6 % (42.0-52.0)
[2017-06-15] MEDS: LEVETIRACETAM 500MG/5ML CUP NG SCH (21:35)
[2017-06-16] VITALS (14 sets, daily range): BP systolic 106–156; BP diastolic 54–102
[2017-06-16] MEDS: ALBUTEROL (0.083%) 2.5MG/3ML NEB HHN SCH ×6 (00:03→20:04)
[2017-06-16] MEDS: METOPROLOL TARTRATE 50MG TABLET PEG SCH ×4 (05:14→23:05)
[2017-06-16] MEDS: HYDRALAZINE HCL 50MG TABLET PEG SCH ×4 (05:14→23:04)
[2017-06-16] MEDS: AMLODIPINE 2.5MG TABLET PEG SCH ×4 (05:14→23:04)
[2017-06-16] MEDS: PIPERACILLIN/TAZ 3.375G PREMIX 50 ML IV SCH ×4 (05:14→23:02)
[2017-06-16] MEDS: MINOXIDIL 2.5MG TABLET PEG SCH ×4 (05:15→23:05)
[2017-06-16] MEDS: TERAZOSIN HCL 5MG CAPSULE NG SCH ×3 (05:15→21:32)
[2017-06-16] MEDS: LEVETIRACETAM 500MG/5ML CUP NG SCH ×2 (09:39→21:30)
[2017-06-16] MEDS: PHENYTOIN 100 MG/4 ML UDC NG SCH ×2 (09:39→17:30)
[2017-06-16] MEDS: SODIUM HYPOCHLORITE 0.125% 473ML SOLUTION TOP SCH (09:41)
[2017-06-16] MEDS: SPIRONOLACTONE 25MG TABLET NG SCH (09:41)
[2017-06-16] MEDS: FAMOTIDINE 20MG TABLET GT SCH ×2 (09:41→21:30)
[2017-06-17] VITALS (12 sets, daily range): BP systolic 120–162; BP diastolic 60–99
[2017-06-17] MEDS: ALBUTEROL (0.083%) 2.5MG/3ML NEB HHN SCH ×6 (00:20→20:13)
[2017-06-17] MEDS: PIPERACILLIN/TAZ 3.375G PREMIX 50 ML IV SCH ×4 (06:13→23:08)
[2017-06-17] MEDS: TERAZOSIN HCL 5MG CAPSULE NG SCH ×3 (06:16→21:51)
[2017-06-17] MEDS: MINOXIDIL 2.5MG TABLET PEG SCH ×4 (06:17→23:09)
[2017-06-17] MEDS: HYDRALAZINE HCL 50MG TABLET PEG SCH ×4 (06:23→23:09)
[2017-06-17] MEDS: METOPROLOL TARTRATE 50MG TABLET PEG SCH ×4 (06:23→23:10)
[2017-06-17] MEDS: AMLODIPINE 2.5MG TABLET PEG SCH ×4 (06:24→23:09)
[2017-06-17 07:27] LABS: BASOPHILS % 1.1 % (0.0-2.0); EOSINOPHILS % 3.9 % (0.0-5.0); HEMATOCRIT. 26.7 % (42.0-52.0); HEMOGLOBIN. 9.1 g/dL (14.0-18.0); LYMPHOCYTES % 34.2 % (20.0-50.0); MEAN CORPUSCULAR HEMOGLOBIN 31.4 pg (28.0-32.0); MEAN CORPUSCULAR VOLUME 92.7 fL (80.0-94.0); MEAN PLATELET VOLUME 9.8 fl (7.4-10.4); MONOCYTES % 9.1 % (2.0-8.0); NEUTROPHILS % 51.7 % (40.0-76.0); PLATELET 188 x1000/uL (130-400); RED BLOOD CELL COUNT 2.88 mill/uL (4.7-6.1); RED CELL DISTRIBUTION WIDTH 18.7 % (11.6-14.6)
[2017-06-17 08:19] LABS: CARBON DIOXIDE 31 mEq/L (21-32); CHLORIDE 105 mEq/L (98-107)
[2017-06-17] MEDS: SPIRONOLACTONE 25MG TABLET NG SCH (08:19)
[2017-06-17] MEDS: FAMOTIDINE 20MG TABLET GT SCH ×2 (08:19→21:51)
[2017-06-17] MEDS: PHENYTOIN 100 MG/4 ML UDC NG SCH (08:20)
[2017-06-17] MEDS: LEVETIRACETAM 500MG/5ML CUP NG SCH ×2 (08:20→21:51)
[2017-06-17] MEDS: SODIUM HYPOCHLORITE 0.125% 473ML SOLUTION TOP SCH (08:23)
[2017-06-17] MEDS ORDERED: PHENYTOIN SODIUM 500 MG in SODIUM CHLORIDE 0.9% 50 ML IV NR (14:00)
[2017-06-17] MEDS: MORPHINE SULFATE 4 MG/ML CPJ (NOT FOR IM USE) IV PRN (23:11)
[2017-06-18] VITALS (15 sets, daily range): BP systolic 16–148; BP diastolic 58–92
[2017-06-18] MEDS: ALBUTEROL (0.083%) 2.5MG/3ML NEB HHN SCH ×6 (00:17→19:49)
[2017-06-18] MEDS: LORAZEPAM 2MG/ML CPJ IV PRN (04:37)
[2017-06-18] MEDS: TERAZOSIN HCL 5MG CAPSULE NG SCH ×3 (05:12→21:52)
[2017-06-18] MEDS: PIPERACILLIN/TAZ 3.375G PREMIX 50 ML IV SCH ×4 (05:12→23:17)
[2017-06-18] MEDS: HYDRALAZINE HCL 50MG TABLET PEG SCH ×4 (05:13→23:17)
[2017-06-18] MEDS: MINOXIDIL 2.5MG TABLET PEG SCH ×4 (05:13→23:18)
[2017-06-18] MEDS: METOPROLOL TARTRATE 50MG TABLET PEG SCH ×4 (05:13→23:18)
[2017-06-18] MEDS: LEVETIRACETAM 500MG/5ML CUP NG SCH ×2 (09:51→21:52)
[2017-06-18] MEDS: SPIRONOLACTONE 25MG TABLET NG SCH (09:51)
[2017-06-18] MEDS: FAMOTIDINE 20MG TABLET GT SCH (09:51)
[2017-06-18] MEDS: SODIUM HYPOCHLORITE 0.125% 473ML SOLUTION TOP SCH (09:52)
[2017-06-18] MEDS: PHENYTOIN SODIUM 100MG/2ML VIAL IV SCH ×2 (14:37→21:52)
[2017-06-19] VITALS (16 sets, daily range): BP systolic 121–167; BP diastolic 58–84
[2017-06-19] MEDS: ALBUTEROL (0.083%) 2.5MG/3ML NEB HHN SCH ×6 (00:17→20:09)
[2017-06-19] MEDS: LORAZEPAM 2MG/ML CPJ IV PRN (04:37)
[2017-06-19] MEDS: HYDRALAZINE HCL 50MG TABLET PEG SCH ×4 (05:19→23:40)
[2017-06-19] MEDS: TERAZOSIN HCL 5MG CAPSULE NG SCH ×3 (05:20→21:45)
[2017-06-19] MEDS: MINOXIDIL 2.5MG TABLET PEG SCH ×4 (05:20→23:40)
[2017-06-19] MEDS: PHENYTOIN SODIUM 100MG/2ML VIAL IV SCH ×3 (05:22→21:45)
[2017-06-19] MEDS: METOPROLOL TARTRATE 50MG TABLET PEG SCH ×4 (05:22→23:41)
[2017-06-19] MEDS: PIPERACILLIN/TAZ 3.375G PREMIX 50 ML IV SCH ×4 (05:22→23:40)
[2017-06-19 06:12] LABS: BASOPHILS % 1.1 % (0.0-2.0); EOSINOPHILS % 4.3 % (0.0-5.0); HEMATOCRIT. 27.3 % (42.0-52.0); HEMOGLOBIN. 9.2 g/dL (14.0-18.0); LYMPHOCYTES % 32.9 % (20.0-50.0); MEAN CORPUSCULAR HEMOGLOBIN 31.5 pg (28.0-32.0); MEAN CORPUSCULAR VOLUME 93.2 fL (80.0-94.0); MONOCYTES % 8.4 % (2.0-8.0); NEUTROPHILS % 53.3 % (40.0-76.0); PLATELET 171 x1000/uL (130-400); RED BLOOD CELL COUNT 2.92 mill/uL (4.7-6.1); RED CELL DISTRIBUTION WIDTH 18.7 % (11.6-14.6)
[2017-06-19 06:36] LABS: CHLORIDE 106 mEq/L (98-107)
[2017-06-19] MEDS: MORPHINE SULFATE 4 MG/ML CPJ (NOT FOR IM USE) IV PRN (06:45)
[2017-06-19 06:48] LABS: CARBON DIOXIDE 29 mEq/L (21-32)
[2017-06-19] MEDS: SPIRONOLACTONE 25MG TABLET NG SCH (09:15)
[2017-06-19] MEDS: LEVETIRACETAM 500MG/5ML CUP NG SCH ×2 (09:15→21:45)
[2017-06-19] MEDS: SODIUM HYPOCHLORITE 0.125% 473ML SOLUTION TOP SCH (09:16)
[2017-06-20] VITALS (12 sets, daily range): BP systolic 114–152; BP diastolic 53–87
[2017-06-20] MEDS: ALBUTEROL (0.083%) 2.5MG/3ML NEB HHN SCH ×7 (00:21→23:47)
[2017-06-20] MEDS: LORAZEPAM 2MG/ML CPJ IV PRN ×2 (01:18→23:07)
[2017-06-20] MEDS: HYDRALAZINE HCL 50MG TABLET PEG SCH ×4 (05:12→23:07)
[2017-06-20] MEDS: PIPERACILLIN/TAZ 3.375G PREMIX 50 ML IV SCH ×3 (05:12→17:19)
[2017-06-20] MEDS: MINOXIDIL 2.5MG TABLET PEG SCH ×4 (05:13→23:06)
[2017-06-20] MEDS: MORPHINE SULFATE 4 MG/ML CPJ (NOT FOR IM USE) IV PRN ×3 (05:13→20:45)
[2017-06-20] MEDS: PHENYTOIN SODIUM 100MG/2ML VIAL IV SCH ×3 (05:13→21:11)
[2017-06-20] MEDS: METOPROLOL TARTRATE 50MG TABLET PEG SCH ×4 (05:17→23:06)
[2017-06-20] MEDS: LEVETIRACETAM 500MG/5ML CUP NG SCH ×2 (08:25→20:44)
[2017-06-20] MEDS: SPIRONOLACTONE 25MG TABLET NG SCH (08:25)
[2017-06-20] MEDS: SODIUM HYPOCHLORITE 0.125% 473ML SOLUTION TOP SCH (08:26)
[2017-06-20] MEDS: TERAZOSIN HCL 5MG CAPSULE NG SCH ×2 (13:14→23:06)
[2017-06-21] VITALS (14 sets, daily range): BP systolic 91–172; BP diastolic 50–95
[2017-06-21] MEDS: ALBUTEROL (0.083%) 2.5MG/3ML NEB HHN SCH ×5 (03:57→20:58)
[2017-06-21] MEDS: MINOXIDIL 2.5MG TABLET PEG SCH ×3 (05:09→17:38)
[2017-06-21] MEDS: TERAZOSIN HCL 5MG CAPSULE NG SCH ×3 (05:09→21:51)
[2017-06-21] MEDS: HYDRALAZINE HCL 50MG TABLET PEG SCH ×3 (05:09→17:37)
[2017-06-21] MEDS: MORPHINE SULFATE 4 MG/ML CPJ (NOT FOR IM USE) IV PRN (05:10)
[2017-06-21] MEDS: METOPROLOL TARTRATE 50MG TABLET PEG SCH ×3 (05:10→17:38)
[2017-06-21] MEDS: LORAZEPAM 2MG/ML CPJ IV PRN (05:11)
[2017-06-21] MEDS: PHENYTOIN SODIUM 100MG/2ML VIAL IV SCH ×3 (05:13→21:51)
[2017-06-21] MEDS: PIPERACILLIN/TAZ 3.375G PREMIX 50 ML IV SCH ×4 (05:13→17:34)
[2017-06-21] MEDS: SODIUM HYPOCHLORITE 0.125% 473ML SOLUTION TOP SCH (09:00)
[2017-06-21] MEDS: SPIRONOLACTONE 25MG TABLET NG SCH (09:41)
[2017-06-21] MEDS: LEVETIRACETAM 500MG/5ML CUP NG SCH ×2 (09:49→21:52)
[2017-06-21] MEDS: AMLODIPINE 2.5MG TABLET NG SCH ×2 (11:54→17:37)
[2017-06-22] VITALS (19 sets, daily range): BP systolic 96–146; BP diastolic 53–74
[2017-06-22] MEDS: ALBUTEROL (0.083%) 2.5MG/3ML NEB HHN SCH ×6 (01:05→19:59)
[2017-06-22] MEDS: LORAZEPAM 2MG/ML CPJ IV PRN (01:23)
[2017-06-22] MEDS: PIPERACILLIN/TAZ 3.375G PREMIX 50 ML IV SCH ×4 (05:14→17:21)
[2017-06-22] MEDS: METOPROLOL TARTRATE 50MG TABLET PEG SCH ×4 (05:20→17:22)
[2017-06-22] MEDS: AMLODIPINE 2.5MG TABLET NG SCH ×4 (05:20→17:22)
[2017-06-22] MEDS: TERAZOSIN HCL 5MG CAPSULE NG SCH ×3 (05:20→21:49)
[2017-06-22] MEDS: HYDRALAZINE HCL 50MG TABLET PEG SCH ×4 (05:21→17:22)
[2017-06-22] MEDS: MINOXIDIL 2.5MG TABLET PEG SCH ×4 (05:21→17:22)
[2017-06-22] MEDS: PHENYTOIN SODIUM 100MG/2ML VIAL IV SCH ×3 (05:24→21:49)
[2017-06-22 06:47] LABS: BASOPHILS % 1.2 % (0.0-2.0); EOSINOPHILS % 4.2 % (0.0-5.0); LYMPHOCYTES % 32.7 % (20.0-50.0); MEAN CORPUSCULAR HEMOGLOBIN 31.6 pg (28.0-32.0); MEAN CORPUSCULAR VOLUME 92.3 fL (80.0-94.0); MEAN PLATELET VOLUME 9.4 fl (7.4-10.4); MONOCYTES % 8.2 % (2.0-8.0); NEUTROPHILS % 53.7 % (40.0-76.0); PLATELET 143 x1000/uL (130-400); RED BLOOD CELL COUNT 2.23 mill/uL (4.7-6.1); RED CELL DISTRIBUTION WIDTH 18.4 % (11.6-14.6)
[2017-06-22 07:06] LABS: CARBON DIOXIDE 31 mEq/L (21-32); CHLORIDE 105 mEq/L (98-107)
[2017-06-22 08:09] LABS: HEMATOCRIT. 20.6 % (42.0-52.0)
[2017-06-22] MEDS: SODIUM HYPOCHLORITE 0.125% 473ML SOLUTION TOP SCH (09:00)
[2017-06-22] MEDS: LEVETIRACETAM 500MG/5ML CUP NG SCH ×2 (09:21→21:49)
[2017-06-22] MEDS: SPIRONOLACTONE 25MG TABLET NG SCH (09:21)
[2017-06-22 20:35] LABS: HEMATOCRIT 20.9 % (42.0-52.0); HEMOGLOBIN 6.9 g/dL (14.0-18.0)
[2017-06-23] VITALS (15 sets, daily range): BP systolic 115–162; BP diastolic 58–89
[2017-06-23] MEDS: ALBUTEROL (0.083%) 2.5MG/3ML NEB HHN SCH ×6 (00:07→20:37)
[2017-06-23] MEDS: PIPERACILLIN/TAZ 3.375G PREMIX 50 ML IV SCH ×4 (00:48→17:49)
[2017-06-23] MEDS: AMLODIPINE 2.5MG TABLET NG SCH ×4 (00:48→17:50)
[2017-06-23] MEDS: HYDRALAZINE HCL 50MG TABLET PEG SCH ×4 (00:48→17:51)
[2017-06-23] MEDS: TERAZOSIN HCL 5MG CAPSULE NG SCH ×3 (05:22→22:02)
[2017-06-23] MEDS: PHENYTOIN SODIUM 100MG/2ML VIAL IV SCH ×3 (05:22→22:02)
[2017-06-23] MEDS: METOPROLOL TARTRATE 50MG TABLET PEG SCH ×4 (05:23→17:50)
[2017-06-23 08:01] LABS: HEMATOCRIT 28.6 % (42.0-52.0); HEMOGLOBIN 9.8 g/dL (14.0-18.0)
[2017-06-23] MEDS: SPIRONOLACTONE 25MG TABLET NG SCH (09:01)
[2017-06-23] MEDS: LEVETIRACETAM 500MG/5ML CUP NG SCH ×2 (09:01→22:00)
[2017-06-23] MEDS: SODIUM HYPOCHLORITE 0.125% 473ML SOLUTION TOP SCH (17:57)
[2017-06-24] VITALS (12 sets, daily range): BP systolic 141–181; BP diastolic 41–105
[2017-06-24] MEDS: ALBUTEROL (0.083%) 2.5MG/3ML NEB HHN SCH ×6 (00:07→21:16)
[2017-06-24] MEDS: PIPERACILLIN/TAZ 3.375G PREMIX 50 ML IV SCH ×5 (01:07→23:56)
[2017-06-24] MEDS: AMLODIPINE 2.5MG TABLET NG SCH ×5 (01:07→23:55)
[2017-06-24] MEDS: HYDRALAZINE HCL 50MG TABLET PEG SCH ×5 (01:08→23:56)
[2017-06-24] MEDS: METOPROLOL TARTRATE 50MG TABLET PEG SCH ×5 (01:08→23:55)
[2017-06-24] MEDS: PHENYTOIN SODIUM 100MG/2ML VIAL IV SCH ×3 (06:25→20:37)
[2017-06-24] MEDS: TERAZOSIN HCL 5MG CAPSULE NG SCH ×3 (06:29→20:37)
[2017-06-24 07:15] LABS: EOSINOPHILS % 3.2 % (0.0-5.0); HEMATOCRIT. 28.5 % (42.0-52.0); HEMOGLOBIN. 9.8 g/dL (14.0-18.0); LYMPHOCYTES % 26.6 % (20.0-50.0); MEAN CORPUSCULAR VOLUME 90.2 fL (80.0-94.0); MEAN PLATELET VOLUME 10.1 fl (7.4-10.4); MONOCYTES % 8.5 % (2.0-8.0); NEUTROPHILS % 60.7 % (40.0-76.0); PLATELET 150 x1000/uL (130-400); RED BLOOD CELL COUNT 3.17 mill/uL (4.7-6.1); RED CELL DISTRIBUTION WIDTH 19.6 % (11.6-14.6)
[2017-06-24 08:52] LABS: CHLORIDE 105 mEq/L (98-107)
[2017-06-24] MEDS: SPIRONOLACTONE 25MG TABLET NG SCH (09:06)
[2017-06-24] MEDS: LEVETIRACETAM 500MG/5ML CUP NG SCH ×2 (09:06→20:37)
[2017-06-24] MEDS: SODIUM HYPOCHLORITE 0.125% 473ML SOLUTION TOP SCH (09:11)
[2017-06-24 09:49] LABS: CARBON DIOXIDE 28 mEq/L (21-32)
[2017-06-24] MEDS ORDERED: SODIUM HYPOCHLORITE 0.125% 473ML SOLUTION TOP PRN (20:00)
[2017-06-24] MEDS: MORPHINE SULFATE 4 MG/ML CPJ (NOT FOR IM USE) IV PRN (20:19)
[2017-06-24] MEDS: MINOXIDIL 2.5MG TABLET NG SCH (23:56)
[2017-06-25] VITALS (13 sets, daily range): BP systolic 142–172; BP diastolic 74–98
[2017-06-25] MEDS: ALBUTEROL (0.083%) 2.5MG/3ML NEB HHN SCH ×6 (00:09→20:48)
[2017-06-25] MEDS: MINOXIDIL 2.5MG TABLET NG SCH ×3 (05:36→17:12)
[2017-06-25] MEDS: METOPROLOL TARTRATE 50MG TABLET PEG SCH ×3 (05:36→17:13)
[2017-06-25] MEDS: HYDRALAZINE HCL 50MG TABLET PEG SCH ×3 (05:36→17:13)
[2017-06-25] MEDS: TERAZOSIN HCL 5MG CAPSULE NG SCH ×3 (05:37→21:29)
[2017-06-25] MEDS: AMLODIPINE 2.5MG TABLET NG SCH ×3 (05:37→17:12)
[2017-06-25] MEDS: PIPERACILLIN/TAZ 3.375G PREMIX 50 ML IV SCH ×3 (05:37→17:12)
[2017-06-25] MEDS: PHENYTOIN SODIUM 100MG/2ML VIAL IV SCH ×2 (05:41→14:21)
[2017-06-25] MEDS: LEVETIRACETAM 500MG/5ML CUP NG SCH ×2 (09:10→21:29)
[2017-06-25] MEDS: SPIRONOLACTONE 25MG TABLET NG SCH (09:11)
[2017-06-26] VITALS (12 sets, daily range): BP systolic 122–159; BP diastolic 34–80
[2017-06-26] MEDS: AMLODIPINE 2.5MG TABLET NG SCH ×4 (00:12→17:04)
[2017-06-26] MEDS: HYDRALAZINE HCL 50MG TABLET PEG SCH ×4 (00:12→17:03)
[2017-06-26] MEDS: MINOXIDIL 2.5MG TABLET NG SCH ×4 (00:12→17:04)
[2017-06-26] MEDS: METOPROLOL TARTRATE 50MG TABLET PEG SCH ×4 (00:12→17:04)
[2017-06-26] MEDS: PIPERACILLIN/TAZ 3.375G PREMIX 50 ML IV SCH ×4 (00:12→17:01)
[2017-06-26] MEDS: ALBUTEROL (0.083%) 2.5MG/3ML NEB HHN SCH ×6 (01:03→20:01)
[2017-06-26] MEDS: TERAZOSIN HCL 5MG CAPSULE NG SCH ×3 (06:11→21:32)
[2017-06-26 06:43] LABS: BASOPHILS % 1.1 % (0.0-2.0); EOSINOPHILS % 5.1 % (0.0-5.0); HEMATOCRIT. 28.7 % (42.0-52.0); HEMOGLOBIN. 9.6 g/dL (14.0-18.0); LYMPHOCYTES % 31.1 % (20.0-50.0); MEAN CORPUSCULAR HEMOGLOBIN 30.6 pg (28.0-32.0); MEAN CORPUSCULAR VOLUME 91.6 fL (80.0-94.0); MEAN PLATELET VOLUME 10.3 fl (7.4-10.4); MONOCYTES % 10.6 % (2.0-8.0); NEUTROPHILS % 52.1 % (40.0-76.0); PLATELET 139 x1000/uL (130-400); RED BLOOD CELL COUNT 3.14 mill/uL (4.7-6.1); RED CELL DISTRIBUTION WIDTH 18.8 % (11.6-14.6)
[2017-06-26 08:35] LABS: CHLORIDE 105 mEq/L (98-107)
[2017-06-26] MEDS: LEVETIRACETAM 500MG/5ML CUP NG SCH ×2 (08:39→21:31)
[2017-06-26 08:40] LABS: CARBON DIOXIDE 31 mEq/L (21-32)
[2017-06-26] MEDS: PHENYTOIN 100 MG/4 ML UDC NG SCH ×2 (08:40→17:01)
[2017-06-26] MEDS: SPIRONOLACTONE 25MG TABLET NG SCH (08:40)
[2017-06-26] MEDS: SODIUM HYPOCHLORITE 0.125% 473ML SOLUTION TOP SCH (08:54)
[2017-06-26] MEDS: MORPHINE SULFATE 4 MG/ML CPJ (NOT FOR IM USE) IV PRN ×2 (12:16→19:01)
[2017-06-27] VITALS (12 sets, daily range): BP systolic 116–164; BP diastolic 62–84
[2017-06-27] MEDS: ALBUTEROL (0.083%) 2.5MG/3ML NEB HHN SCH ×7 (00:01→23:45)
[2017-06-27] MEDS: PIPERACILLIN/TAZ 3.375G PREMIX 50 ML IV SCH ×4 (00:03→17:45)
[2017-06-27] MEDS: HYDRALAZINE HCL 50MG TABLET PEG SCH ×4 (00:07→17:45)
[2017-06-27] MEDS: MINOXIDIL 2.5MG TABLET NG SCH ×4 (00:07→17:43)
[2017-06-27] MEDS: AMLODIPINE 2.5MG TABLET NG SCH ×4 (00:07→17:45)
[2017-06-27] MEDS: METOPROLOL TARTRATE 50MG TABLET PEG SCH ×4 (00:07→17:44)
[2017-06-27] MEDS: MORPHINE SULFATE 4 MG/ML CPJ (NOT FOR IM USE) IV PRN ×2 (01:09→18:37)
[2017-06-27] MEDS: TERAZOSIN HCL 5MG CAPSULE NG SCH ×3 (06:10→21:35)
[2017-06-27] MEDS ORDERED: MORPHINE SULFATE 4 MG/ML CPJ (NOT FOR IM USE) IV SCH (06:15)
[2017-06-27] MEDS ORDERED: LORAZEPAM 2MG/ML CPJ IV SCH (06:15)
[2017-06-27] MEDS: SODIUM HYPOCHLORITE 0.125% 473ML SOLUTION TOP SCH (09:00)
[2017-06-27] MEDS: SPIRONOLACTONE 25MG TABLET NG SCH (09:10)
[2017-06-27] MEDS: PHENYTOIN 100 MG/4 ML UDC NG SCH ×2 (09:10→17:43)
[2017-06-27] MEDS: LEVETIRACETAM 500MG/5ML CUP NG SCH ×2 (09:10→21:35)
[2017-06-28] VITALS (12 sets, daily range): BP systolic 111–158; BP diastolic 54–85
[2017-06-28] MEDS: MINOXIDIL 2.5MG TABLET NG SCH ×6 (00:10→23:56)
[2017-06-28] MEDS: METOPROLOL TARTRATE 50MG TABLET PEG SCH ×5 (00:10→23:57)
[2017-06-28] MEDS: HYDRALAZINE HCL 50MG TABLET PEG SCH ×5 (00:10→18:10)
[2017-06-28] MEDS: AMLODIPINE 2.5MG TABLET NG SCH ×5 (00:10→18:10)
[2017-06-28] MEDS: PIPERACILLIN/TAZ 3.375G PREMIX 50 ML IV SCH ×2 (00:10→05:26)
[2017-06-28] MEDS: ALBUTEROL (0.083%) 2.5MG/3ML NEB HHN SCH ×5 (03:17→20:15)
[2017-06-28] MEDS: MORPHINE SULFATE 4 MG/ML CPJ (NOT FOR IM USE) IV PRN (05:27)
[2017-06-28] MEDS: TERAZOSIN HCL 5MG CAPSULE NG SCH ×3 (06:27→21:27)
[2017-06-28 06:28] LABS: BASOPHILS % 1.3 % (0.0-2.0); EOSINOPHILS % 6.3 % (0.0-5.0); HEMATOCRIT. 28.1 % (42.0-52.0); HEMOGLOBIN. 9.6 g/dL (14.0-18.0); LYMPHOCYTES % 37.1 % (20.0-50.0); MEAN CORPUSCULAR HEMOGLOBIN 30.9 pg (28.0-32.0); MEAN CORPUSCULAR VOLUME 90.3 fL (80.0-94.0); MEAN PLATELET VOLUME 10.6 fl (7.4-10.4); MONOCYTES % 9.4 % (2.0-8.0); NEUTROPHILS % 45.9 % (40.0-76.0); PLATELET 149 x1000/uL (130-400); RED BLOOD CELL COUNT 3.11 mill/uL (4.7-6.1); RED CELL DISTRIBUTION WIDTH 17.9 % (11.6-14.6)
[2017-06-28 08:33] LABS: CARBON DIOXIDE 32 mEq/L (21-32); CHLORIDE 103 mEq/L (98-107)
[2017-06-28] MEDS: SODIUM HYPOCHLORITE 0.125% 473ML SOLUTION TOP SCH (09:00)
[2017-06-28] MEDS: SPIRONOLACTONE 25MG TABLET NG SCH (09:31)
[2017-06-28] MEDS: LEVETIRACETAM 500MG/5ML CUP NG SCH ×2 (09:31→21:27)
[2017-06-28] MEDS: PHENYTOIN 100 MG/4 ML UDC NG SCH ×2 (09:31→18:10)
[2017-06-29] VITALS (12 sets, daily range): BP systolic 114–166; BP diastolic 50–85
[2017-06-29] MEDS: ALBUTEROL (0.083%) 2.5MG/3ML NEB HHN SCH ×6 (00:17→20:15)
[2017-06-29] MEDS: AMLODIPINE 2.5MG TABLET NG SCH ×5 (01:00→23:57)
[2017-06-29] MEDS: HYDRALAZINE HCL 50MG TABLET PEG SCH ×5 (01:00→23:56)
[2017-06-29] MEDS: TERAZOSIN HCL 5MG CAPSULE NG SCH ×3 (06:00→21:08)
[2017-06-29] MEDS: MINOXIDIL 2.5MG TABLET NG SCH ×4 (06:00→23:57)
[2017-06-29 06:48] LABS: BASOPHILS % 1.4 % (0.0-2.0); EOSINOPHILS % 4.9 % (0.0-5.0); HEMATOCRIT. 29.3 % (42.0-52.0); LYMPHOCYTES % 39.8 % (20.0-50.0); MEAN CORPUSCULAR HEMOGLOBIN 31.1 pg (28.0-32.0); MEAN CORPUSCULAR VOLUME 91.5 fL (80.0-94.0); MEAN PLATELET VOLUME 9.6 fl (7.4-10.4); MONOCYTES % 8.9 % (2.0-8.0); PLATELET 162 x1000/uL (130-400)
[2017-06-29] MEDS: METOPROLOL TARTRATE 50MG TABLET PEG SCH ×4 (06:59→23:56)
[2017-06-29 07:44] LABS: CHLORIDE 101 mEq/L (98-107)
[2017-06-29 07:57] LABS: CARBON DIOXIDE 32 mEq/L (21-32)
[2017-06-29] MEDS: LEVETIRACETAM 500MG/5ML CUP NG SCH ×2 (08:59→20:45)
[2017-06-29] MEDS: PHENYTOIN 100 MG/4 ML UDC NG SCH ×2 (08:59→17:42)
[2017-06-29] MEDS: SPIRONOLACTONE 25MG TABLET NG SCH (08:59)
[2017-06-29] MEDS: SODIUM HYPOCHLORITE 0.125% 473ML SOLUTION TOP SCH (09:00)
[2017-06-29] MEDS ORDERED: PIPERACILLIN/TAZ 3.375G PREMIX 50 ML IV SCH (15:00)
[2017-06-29] MEDS: PIPERACILLIN/TAZ 3.375G PREMIX 50 ML IV SCH (20:45)
[2017-06-30] VITALS (12 sets, daily range): BP systolic 118–163; BP diastolic 60–88
[2017-06-30] MEDS: ALBUTEROL (0.083%) 2.5MG/3ML NEB HHN SCH ×6 (00:33→20:04)
[2017-06-30] MEDS: PIPERACILLIN/TAZ 3.375G PREMIX 50 ML IV SCH ×4 (01:54→20:55)
[2017-06-30] MEDS: HYDRALAZINE HCL 50MG TABLET PEG SCH ×3 (05:22→17:26)
[2017-06-30] MEDS: AMLODIPINE 2.5MG TABLET NG SCH ×3 (05:22→17:25)
[2017-06-30] MEDS: MINOXIDIL 2.5MG TABLET NG SCH ×3 (05:23→17:25)
[2017-06-30] MEDS: METOPROLOL TARTRATE 50MG TABLET PEG SCH ×3 (05:23→17:25)
[2017-06-30] MEDS: TERAZOSIN HCL 5MG CAPSULE NG SCH ×3 (05:23→20:54)
[2017-06-30 06:40] LABS: BASOPHILS % 0.9 % (0.0-2.0); EOSINOPHILS % 4.2 % (0.0-5.0); HEMATOCRIT. 28.9 % (42.0-52.0); HEMOGLOBIN. 9.9 g/dL (14.0-18.0); LYMPHOCYTES % 32.9 % (20.0-50.0); MEAN CORPUSCULAR HEMOGLOBIN 31.1 pg (28.0-32.0); MEAN CORPUSCULAR VOLUME 90.7 fL (80.0-94.0); MEAN PLATELET VOLUME 9.7 fl (7.4-10.4); MONOCYTES % 9.4 % (2.0-8.0); NEUTROPHILS % 52.6 % (40.0-76.0); PLATELET 166 x1000/uL (130-400); RED BLOOD CELL COUNT 3.19 mill/uL (4.7-6.1); RED CELL DISTRIBUTION WIDTH 18.2 % (11.6-14.6)
[2017-06-30 06:49] LABS: CARBON DIOXIDE 34 mEq/L (21-32); CHLORIDE 100 mEq/L (98-107)
[2017-06-30] MEDS: LEVETIRACETAM 500MG/5ML CUP NG SCH ×2 (08:12→20:55)
[2017-06-30] MEDS: PHENYTOIN 100 MG/4 ML UDC NG SCH ×2 (08:13→17:25)
[2017-06-30] MEDS: SPIRONOLACTONE 25MG TABLET NG SCH (08:13)
[2017-06-30] MEDS: SODIUM HYPOCHLORITE 0.125% 473ML SOLUTION TOP SCH (09:00)
[2017-06-30] MEDS ORDERED: FUROSEMIDE 40MG/4ML VIAL IVP NR (12:00)
[2017-07-01] VITALS (12 sets, daily range): BP systolic 126–169; BP diastolic 61–90
[2017-07-01] MEDS: ALBUTEROL (0.083%) 2.5MG/3ML NEB HHN SCH ×6 (00:20→20:23)
[2017-07-01] MEDS: AMLODIPINE 2.5MG TABLET NG SCH ×5 (00:43→23:07)
[2017-07-01] MEDS: HYDRALAZINE HCL 50MG TABLET PEG SCH ×5 (00:44→23:06)
[2017-07-01] MEDS: METOPROLOL TARTRATE 50MG TABLET PEG SCH ×5 (00:44→23:06)
[2017-07-01] MEDS: MINOXIDIL 2.5MG TABLET NG SCH ×5 (00:45→23:07)
[2017-07-01] MEDS: PIPERACILLIN/TAZ 3.375G PREMIX 50 ML IV SCH ×4 (00:48→19:42)
[2017-07-01] MEDS: TERAZOSIN HCL 5MG CAPSULE NG SCH ×3 (05:03→21:40)
[2017-07-01] MEDS: LEVETIRACETAM 500MG/5ML CUP NG SCH ×2 (08:07→20:30)
[2017-07-01] MEDS: SPIRONOLACTONE 25MG TABLET NG SCH (08:07)
[2017-07-01] MEDS: PHENYTOIN 100 MG/4 ML UDC NG SCH ×2 (08:10→17:19)
[2017-07-01] MEDS: SODIUM HYPOCHLORITE 0.125% 473ML SOLUTION TOP SCH (08:23)
[2017-07-01] MEDS ORDERED: FUROSEMIDE 20MG/2ML VIAL IVP NR (10:15)
[2017-07-02] VITALS (13 sets, daily range): BP systolic 107–169; BP diastolic 63–100
[2017-07-02] MEDS: ALBUTEROL (0.083%) 2.5MG/3ML NEB HHN SCH ×6 (00:23→20:14)
[2017-07-02] MEDS: PIPERACILLIN/TAZ 3.375G PREMIX 50 ML IV SCH ×4 (02:35→20:36)
[2017-07-02] MEDS: TERAZOSIN HCL 5MG CAPSULE NG SCH ×3 (05:37→21:17)
[2017-07-02] MEDS: AMLODIPINE 2.5MG TABLET NG SCH ×4 (05:37→23:36)
[2017-07-02] MEDS: METOPROLOL TARTRATE 50MG TABLET PEG SCH ×4 (05:38→23:36)
[2017-07-02] MEDS: MINOXIDIL 2.5MG TABLET NG SCH ×4 (05:38→23:36)
[2017-07-02] MEDS: HYDRALAZINE HCL 50MG TABLET PEG SCH ×3 (05:38→17:20)
[2017-07-02 07:00] LABS: BASOPHILS % 1.4 % (0.0-2.0); EOSINOPHILS % 4.6 % (0.0-5.0); HEMATOCRIT. 28.7 % (42.0-52.0); HEMOGLOBIN. 9.6 g/dL (14.0-18.0); LYMPHOCYTES % 29.9 % (20.0-50.0); MEAN CORPUSCULAR HEMOGLOBIN 30.4 pg (28.0-32.0); MEAN PLATELET VOLUME 9.5 fl (7.4-10.4); MONOCYTES % 11.8 % (2.0-8.0); NEUTROPHILS % 52.3 % (40.0-76.0); PLATELET 173 x1000/uL (130-400); RED BLOOD CELL COUNT 3.16 mill/uL (4.7-6.1); RED CELL DISTRIBUTION WIDTH 17.9 % (11.6-14.6)
[2017-07-02 08:15] LABS: CARBON DIOXIDE 35 mEq/L (21-32); CHLORIDE 99 mEq/L (98-107)
[2017-07-02] MEDS: SPIRONOLACTONE 25MG TABLET NG SCH (09:47)
[2017-07-02] MEDS: LEVETIRACETAM 500MG/5ML CUP NG SCH ×2 (09:47→20:36)
[2017-07-02] MEDS: PHENYTOIN 100 MG/4 ML UDC NG SCH ×2 (09:47→17:12)
[2017-07-03] VITALS (24 sets, daily range): BP systolic 92–209; BP diastolic 39–117
[2017-07-03] MEDS: ALBUTEROL (0.083%) 2.5MG/3ML NEB HHN SCH ×6 (00:01→20:12)
[2017-07-03] MEDS: HYDRALAZINE HCL 50MG TABLET PEG SCH ×4 (00:53→17:32)
[2017-07-03] MEDS: PIPERACILLIN/TAZ 3.375G PREMIX 50 ML IV SCH ×4 (01:36→21:02)
[2017-07-03] MEDS ORDERED: LORAZEPAM 2MG/ML CPJ IV PRN ×2 (03:45→09:15)
[2017-07-03] MEDS ORDERED: HALOPERIDOL LACTATE 5MG/ML VIAL IM SCH (03:45)
[2017-07-03] MEDS: TERAZOSIN HCL 5MG CAPSULE NG SCH ×3 (05:58→21:22)
[2017-07-03] MEDS: AMLODIPINE 2.5MG TABLET NG SCH ×3 (06:00→17:32)
[2017-07-03] MEDS: MINOXIDIL 2.5MG TABLET NG SCH ×3 (06:00→17:31)
[2017-07-03] MEDS: METOPROLOL TARTRATE 50MG TABLET PEG SCH ×3 (06:00→17:32)
[2017-07-03] MEDS ORDERED: DEXT 5%/0.45% NACL 1000ML 1,000 ML IV SCH (08:30)
[2017-07-03] MEDS: SPIRONOLACTONE 25MG TABLET NG SCH (08:37)
[2017-07-03] MEDS: HYDRALAZINE 20MG/ML VIAL IV PRN (08:46)
[2017-07-03] MEDS ORDERED: PHENYTOIN SODIUM 100MG/2ML VIAL IV SCH (09:00)
[2017-07-03] MEDS ORDERED: PHENYTOIN SODIUM 200 MG in SODIUM CHLORIDE 0.9% 50 ML IV SCH (09:30)
[2017-07-03] MEDS ORDERED: LEVETIRACETAM 250 MG in SODIUM CHLORIDE 0.9% 100 ML IV SCH (09:30)
[2017-07-03] MEDS ORDERED: ENALAPRIL 1.25MG/ML VIAL 1ML IV SCH (12:00)
[2017-07-03] MEDS ORDERED: SIMETHICONE 40 MG/0.6 ML 30ML ONE (12:43)
[2017-07-03] MEDS ORDERED: SODIUM CHLORIDE 0.9% 10ML VIAL ONE (12:43)
[2017-07-03] MEDS ORDERED: FENTANYL CITRATE/PF 50MCG/ML 2ML VIAL ONE (12:58)
[2017-07-03] MEDS ORDERED: MIDAZOLAM HCL 5 MG/5 ML VIAL ONE (12:58)
[2017-07-03] MEDS ORDERED: CEFAZOLIN 1000MG PREMIX 50 ML IV NR (13:00)
[2017-07-03] MEDS ORDERED: MIDAZOLAM HCL 5 MG/5 ML VIAL IV PRN (13:21)
[2017-07-03] MEDS: PHENYTOIN 100 MG/4 ML UDC NG SCH (17:31)
[2017-07-03] MEDS: LEVETIRACETAM 500MG/5ML CUP PO SCH (21:03)
[2017-07-04] VITALS (13 sets, daily range): BP systolic 108–158; BP diastolic 55–68
[2017-07-04] MEDS: AMLODIPINE 2.5MG TABLET NG SCH ×4 (00:12→17:59)
[2017-07-04] MEDS: METOPROLOL TARTRATE 50MG TABLET PEG SCH ×4 (00:13→18:00)
[2017-07-04] MEDS: MINOXIDIL 2.5MG TABLET NG SCH ×4 (00:13→17:59)
[2017-07-04] MEDS: HYDRALAZINE HCL 50MG TABLET PEG SCH ×4 (00:13→17:59)
[2017-07-04] MEDS: ALBUTEROL (0.083%) 2.5MG/3ML NEB HHN SCH ×7 (00:20→23:56)
[2017-07-04] MEDS: PIPERACILLIN/TAZ 3.375G PREMIX 50 ML IV SCH ×4 (01:47→20:18)
[2017-07-04] MEDS: TERAZOSIN HCL 5MG CAPSULE NG SCH ×3 (05:41→21:23)
[2017-07-04] MEDS: PHENYTOIN 100 MG/4 ML UDC NG SCH ×2 (09:54→17:58)
[2017-07-04] MEDS: MULTIVITAMINS,THER W-MINERALS TABLET GT SCH (09:54)
[2017-07-04] MEDS: LEVETIRACETAM 500MG/5ML CUP PO SCH ×2 (09:54→20:18)
[2017-07-04] MEDS: ASCORBIC ACID 250 MG TABLET GT SCH (09:54)
[2017-07-04] MEDS: SPIRONOLACTONE 25MG TABLET NG SCH (09:54)
[2017-07-04] MEDS: ZINC SULFATE 220 MG ( 50 ) CAPSULE GT SCH (09:54)
[2017-07-05] VITALS (13 sets, daily range): BP systolic 119–173; BP diastolic 54–87
[2017-07-05] MEDS: METOPROLOL TARTRATE 50MG TABLET PEG SCH ×4 (00:21→18:00)
[2017-07-05] MEDS: MINOXIDIL 2.5MG TABLET NG SCH ×4 (00:21→18:00)
[2017-07-05] MEDS: AMLODIPINE 2.5MG TABLET NG SCH ×4 (00:21→18:00)
[2017-07-05] MEDS: HYDRALAZINE HCL 50MG TABLET PEG SCH ×4 (00:22→18:00)
[2017-07-05] MEDS: PIPERACILLIN/TAZ 3.375G PREMIX 50 ML IV SCH ×4 (01:21→21:06)
[2017-07-05] MEDS: ALBUTEROL (0.083%) 2.5MG/3ML NEB HHN SCH ×5 (04:23→20:05)
[2017-07-05] MEDS: TERAZOSIN HCL 5MG CAPSULE NG SCH ×3 (05:20→21:06)
[2017-07-05 07:20] LABS: BASOPHILS % 0.8 % (0.0-2.0); EOSINOPHILS % 1.8 % (0.0-5.0); HEMATOCRIT. 27.4 % (42.0-52.0); HEMOGLOBIN. 9.4 g/dL (14.0-18.0); LYMPHOCYTES % 19.7 % (20.0-50.0); MEAN CORPUSCULAR HEMOGLOBIN 30.9 pg (28.0-32.0); MEAN CORPUSCULAR VOLUME 90.5 fL (80.0-94.0); MEAN PLATELET VOLUME 8.7 fl (7.4-10.4); MONOCYTES % 7.3 % (2.0-8.0); NEUTROPHILS % 70.4 % (40.0-76.0); PLATELET 175 x1000/uL (130-400); RED BLOOD CELL COUNT 3.03 mill/uL (4.7-6.1); RED CELL DISTRIBUTION WIDTH 18.3 % (11.6-14.6)
[2017-07-05 08:27] LABS: CARBON DIOXIDE 35 mEq/L (21-32); CHLORIDE 98 mEq/L (98-107)
[2017-07-05] MEDS: ZINC SULFATE 220 MG ( 50 ) CAPSULE GT SCH (09:07)
[2017-07-05] MEDS: MULTIVITAMINS,THER W-MINERALS TABLET GT SCH (09:07)
[2017-07-05] MEDS: SPIRONOLACTONE 25MG TABLET NG SCH (09:07)
[2017-07-05] MEDS: PHENYTOIN 100 MG/4 ML UDC NG SCH ×2 (09:07→17:07)
[2017-07-05] MEDS: ASCORBIC ACID 250 MG TABLET GT SCH (09:07)
[2017-07-05] MEDS: LEVETIRACETAM 500MG/5ML CUP PO SCH ×2 (09:08→21:06)
[2017-07-05 09:22] LABS: BG BASE EXCESS 9.2 mmol/L (-2.0-2.0); BG CARBOXYHEMOGLOBIN 0.2 % (0.5-1.5); BG DEOXYHEMOGLOBIN 1.5 % (0.0-5.0); BG FRACTION INSPIRED OXYGEN 40; BG HCO3 ACT 34.5 mmol/L (22.0-26.0); BG METHEMOGLOBIN 0.5 % (0.0-1.5); BG OXYGEN SATURATION 98.5 % (92.0-98.5); BG OXYHEMOGLOBIN 97.8 % (94.0-97.0); BG PCO2 51.4 mmHg (35.0-45.0); BG PH 7.445 (7.350-7.450); BG PO2 149.2 mmHg (75.0-100.0); BG PRESSURE SUPPORT 10; BG SAMPLE SITE RIGHT BRACHIAL; BG TIDAL VOLUME(mL) 550 mL; BG VENT MODE VENT - SIMV; BG VENT RATE 4 set
[2017-07-06] VITALS (14 sets, daily range): BP systolic 91–144; BP diastolic 48–76
[2017-07-06] MEDS: ALBUTEROL (0.083%) 2.5MG/3ML NEB HHN SCH ×5 (00:23→16:03)
[2017-07-06] MEDS: PIPERACILLIN/TAZ 3.375G PREMIX 50 ML IV SCH ×4 (01:35→21:17)
[2017-07-06] MEDS: AMLODIPINE 2.5MG TABLET NG SCH ×4 (01:36→17:44)
[2017-07-06] MEDS: METOPROLOL TARTRATE 50MG TABLET PEG SCH ×4 (01:36→17:44)
[2017-07-06] MEDS: HYDRALAZINE HCL 50MG TABLET PEG SCH ×4 (01:37→17:44)
[2017-07-06] MEDS: MINOXIDIL 2.5MG TABLET NG SCH ×4 (01:37→17:44)
[2017-07-06 06:10] LABS: EOSINOPHILS % 3.6 % (0.0-5.0); HEMATOCRIT. 24.5 % (42.0-52.0); HEMOGLOBIN. 8.2 g/dL (14.0-18.0); LYMPHOCYTES % 26.2 % (20.0-50.0); MEAN CORPUSCULAR HEMOGLOBIN 30.7 pg (28.0-32.0); MEAN CORPUSCULAR VOLUME 91.5 fL (80.0-94.0); MEAN PLATELET VOLUME 9.1 fl (7.4-10.4); MONOCYTES % 9.5 % (2.0-8.0); NEUTROPHILS % 59.7 % (40.0-76.0); PLATELET 168 x1000/uL (130-400); RED BLOOD CELL COUNT 2.68 mill/uL (4.7-6.1); RED CELL DISTRIBUTION WIDTH 17.7 % (11.6-14.6)
[2017-07-06 06:26] LABS: CARBON DIOXIDE 35 mEq/L (21-32); CHLORIDE 99 mEq/L (98-107)
[2017-07-06] MEDS: TERAZOSIN HCL 5MG CAPSULE NG SCH ×3 (06:30→21:18)
[2017-07-06] MEDS: ASCORBIC ACID 250 MG TABLET GT SCH (08:23)
[2017-07-06] MEDS: SPIRONOLACTONE 25MG TABLET NG SCH (08:23)
[2017-07-06] MEDS: MULTIVITAMINS,THER W-MINERALS TABLET GT SCH (08:24)
[2017-07-06] MEDS: PHENYTOIN 100 MG/4 ML UDC NG SCH ×2 (08:24→17:44)
[2017-07-06] MEDS: ZINC SULFATE 220 MG ( 50 ) CAPSULE GT SCH (08:24)
[2017-07-06] MEDS: LEVETIRACETAM 500MG/5ML CUP PO SCH ×2 (08:24→21:17)
[2017-07-07] VITALS (14 sets, daily range): BP systolic 101–172; BP diastolic 54–93
[2017-07-07] MEDS: MINOXIDIL 2.5MG TABLET NG SCH ×4 (00:44→17:03)
[2017-07-07] MEDS: PIPERACILLIN/TAZ 3.375G PREMIX 50 ML IV SCH ×4 (00:58→21:40)
[2017-07-07 05:51] LABS: BASOPHILS % 1.2 % (0.0-2.0); EOSINOPHILS % 4.5 % (0.0-5.0); HEMATOCRIT. 24.7 % (42.0-52.0); HEMOGLOBIN. 8.4 g/dL (14.0-18.0); LYMPHOCYTES % 31.3 % (20.0-50.0); MEAN CORPUSCULAR HEMOGLOBIN 30.8 pg (28.0-32.0); MEAN CORPUSCULAR VOLUME 90.7 fL (80.0-94.0); MEAN PLATELET VOLUME 9.6 fl (7.4-10.4); MONOCYTES % 9.7 % (2.0-8.0); NEUTROPHILS % 53.3 % (40.0-76.0); PLATELET 163 x1000/uL (130-400); RED BLOOD CELL COUNT 2.73 mill/uL (4.7-6.1); RED CELL DISTRIBUTION WIDTH 18.4 % (11.6-14.6)
[2017-07-07] MEDS: HYDRALAZINE HCL 50MG TABLET PEG SCH ×4 (05:52→17:03)
[2017-07-07] MEDS: TERAZOSIN HCL 5MG CAPSULE NG SCH ×3 (05:52→21:40)
[2017-07-07] MEDS: AMLODIPINE 2.5MG TABLET NG SCH ×4 (05:53→17:03)
[2017-07-07] MEDS: METOPROLOL TARTRATE 50MG TABLET PEG SCH ×4 (05:53→17:03)
[2017-07-07 06:36] LABS: CARBON DIOXIDE 34 mEq/L (21-32); CHLORIDE 99 mEq/L (98-107)
[2017-07-07] MEDS: MULTIVITAMINS,THER W-MINERALS TABLET GT SCH (08:55)
[2017-07-07] MEDS: ZINC SULFATE 220 MG ( 50 ) CAPSULE GT SCH (08:55)
[2017-07-07] MEDS: ASCORBIC ACID 250 MG TABLET GT SCH (08:55)
[2017-07-07] MEDS: SPIRONOLACTONE 25MG TABLET NG SCH (08:56)
[2017-07-07] MEDS: LEVETIRACETAM 500MG/5ML CUP PO SCH ×2 (08:56→21:40)
[2017-07-07] MEDS: PHENYTOIN 100 MG/4 ML UDC NG SCH ×2 (08:56→17:02)
[2017-07-08] VITALS (17 sets, daily range): BP systolic 112–149; BP diastolic 60–82
[2017-07-08] MEDS: PIPERACILLIN/TAZ 3.375G PREMIX 50 ML IV SCH ×4 (02:13→21:21)
[2017-07-08] MEDS: AMLODIPINE 2.5MG TABLET NG SCH ×4 (06:31→18:04)
[2017-07-08] MEDS: HYDRALAZINE HCL 50MG TABLET PEG SCH ×4 (06:32→18:04)
[2017-07-08] MEDS: METOPROLOL TARTRATE 50MG TABLET PEG SCH ×4 (06:32→18:03)
[2017-07-08] MEDS: MINOXIDIL 2.5MG TABLET NG SCH ×4 (06:33→18:03)
[2017-07-08] MEDS: TERAZOSIN HCL 5MG CAPSULE NG SCH ×3 (06:35→21:23)
[2017-07-08] MEDS: MULTIVITAMINS,THER W-MINERALS TABLET GT SCH (08:29)
[2017-07-08] MEDS: LEVETIRACETAM 500MG/5ML CUP PO SCH ×2 (08:29→21:21)
[2017-07-08] MEDS: ASCORBIC ACID 250 MG TABLET GT SCH (08:30)
[2017-07-08] MEDS: PHENYTOIN 100 MG/4 ML UDC NG SCH ×2 (08:30→17:06)
[2017-07-08] MEDS: ZINC SULFATE 220 MG ( 50 ) CAPSULE GT SCH (08:30)
[2017-07-08] MEDS: SPIRONOLACTONE 25MG TABLET NG SCH (08:30)
[2017-07-09] VITALS (12 sets, daily range): BP systolic 101–151; BP diastolic 49–74
[2017-07-09] MEDS: HYDRALAZINE HCL 50MG TABLET PEG SCH ×5 (00:41→23:19)
[2017-07-09] MEDS: MINOXIDIL 2.5MG TABLET NG SCH ×5 (00:41→23:18)
[2017-07-09] MEDS: AMLODIPINE 2.5MG TABLET NG SCH ×4 (00:41→17:07)
[2017-07-09] MEDS: METOPROLOL TARTRATE 50MG TABLET PEG SCH ×4 (00:42→17:08)
[2017-07-09] MEDS: PIPERACILLIN/TAZ 3.375G PREMIX 50 ML IV SCH ×4 (01:34→20:13)
[2017-07-09] MEDS: TERAZOSIN HCL 5MG CAPSULE NG SCH ×3 (06:51→21:16)
[2017-07-09 06:59] LABS: BASOPHILS % 1.3 % (0.0-2.0); EOSINOPHILS % 4.9 % (0.0-5.0); HEMATOCRIT. 25.6 % (42.0-52.0); HEMOGLOBIN. 8.9 g/dL (14.0-18.0); LYMPHOCYTES % 32.9 % (20.0-50.0); MEAN CORPUSCULAR HEMOGLOBIN 31.2 pg (28.0-32.0); MEAN CORPUSCULAR VOLUME 90.4 fL (80.0-94.0); MEAN PLATELET VOLUME 9.2 fl (7.4-10.4); MONOCYTES % 10.3 % (2.0-8.0); NEUTROPHILS % 50.6 % (40.0-76.0); PLATELET 174 x1000/uL (130-400); RED BLOOD CELL COUNT 2.83 mill/uL (4.7-6.1); RED CELL DISTRIBUTION WIDTH 17.8 % (11.6-14.6)
[2017-07-09 07:42] LABS: CARBON DIOXIDE 35 mEq/L (21-32); CHLORIDE 100 mEq/L (98-107)
[2017-07-09] MEDS: PHENYTOIN 100 MG/4 ML UDC NG SCH ×2 (10:12→17:02)
[2017-07-09] MEDS: LEVETIRACETAM 500MG/5ML CUP PO SCH ×2 (10:13→20:13)
[2017-07-09] MEDS: MULTIVITAMINS,THER W-MINERALS TABLET GT SCH (10:13)
[2017-07-09] MEDS: ZINC SULFATE 220 MG ( 50 ) CAPSULE GT SCH (10:13)
[2017-07-09] MEDS: ASCORBIC ACID 250 MG TABLET GT SCH (10:14)
[2017-07-09] MEDS: SPIRONOLACTONE 25MG TABLET NG SCH (10:14)
[2017-07-10] VITALS (12 sets, daily range): BP systolic 120–171; BP diastolic 63–93
[2017-07-10] MEDS: PIPERACILLIN/TAZ 3.375G PREMIX 50 ML IV SCH ×4 (01:02→20:23)
[2017-07-10] MEDS: METOPROLOL TARTRATE 50MG TABLET PEG SCH ×5 (01:02→23:02)
[2017-07-10] MEDS: AMLODIPINE 2.5MG TABLET NG SCH ×5 (01:02→23:02)
[2017-07-10] MEDS: HYDRALAZINE HCL 50MG TABLET PEG SCH ×4 (05:54→23:03)
[2017-07-10] MEDS: TERAZOSIN HCL 5MG CAPSULE NG SCH ×3 (05:55→21:07)
[2017-07-10] MEDS: MINOXIDIL 2.5MG TABLET NG SCH ×4 (05:55→23:03)
[2017-07-10] MEDS: MULTIVITAMINS,THER W-MINERALS TABLET GT SCH (09:05)
[2017-07-10] MEDS: ZINC SULFATE 220 MG ( 50 ) CAPSULE GT SCH (09:05)
[2017-07-10] MEDS: SPIRONOLACTONE 25MG TABLET NG SCH (09:05)
[2017-07-10] MEDS: ASCORBIC ACID 250 MG TABLET GT SCH (09:05)
[2017-07-10] MEDS: LEVETIRACETAM 500MG/5ML CUP PO SCH ×2 (09:06→20:23)
[2017-07-10] MEDS: PHENYTOIN 100 MG/4 ML UDC NG SCH ×2 (09:06→17:00)
[2017-07-10] MEDS: TRAMADOL 50MG TABLET PO PRN ×2 (11:57→18:11)
[2017-07-10] MEDS ORDERED: PHENYTOIN SODIUM 500 MG in SODIUM CHLORIDE 0.9% 50 ML IV SCH (12:00)
[2017-07-10] MEDS: IPRATROPIUM/ALBUTEROL 0.5-3(2.5)MG/3ML NEB HHN SCH ×3 (12:13→20:41)
[2017-07-10] MEDS ORDERED: IPRATROPIUM/ALBUTEROL 0.5-3(2.5)MG/3ML NEB ONE (12:13)
[2017-07-11] VITALS (12 sets, daily range): BP systolic 106–159; BP diastolic 58–90
[2017-07-11] MEDS: IPRATROPIUM/ALBUTEROL 0.5-3(2.5)MG/3ML NEB HHN SCH ×6 (00:13→21:15)
[2017-07-11] MEDS: AMLODIPINE 2.5MG TABLET NG SCH ×3 (05:47→17:40)
[2017-07-11] MEDS: TERAZOSIN HCL 5MG CAPSULE NG SCH ×3 (05:48→21:07)
[2017-07-11] MEDS: MINOXIDIL 2.5MG TABLET NG SCH ×3 (05:48→17:39)
[2017-07-11] MEDS: METOPROLOL TARTRATE 50MG TABLET PEG SCH ×3 (05:49→17:40)
[2017-07-11] MEDS: HYDRALAZINE HCL 50MG TABLET PEG SCH ×3 (05:49→17:40)
[2017-07-11] MEDS: PIPERACILLIN/TAZ 3.375G PREMIX 50 ML IV SCH ×4 (05:55→20:50)
[2017-07-11] MEDS: TRAMADOL 50MG TABLET PO PRN (06:44)
[2017-07-11 06:56] LABS: BASOPHILS % 0.8 % (0.0-2.0); EOSINOPHILS % 3.3 % (0.0-5.0); HEMATOCRIT. 24.6 % (42.0-52.0); HEMOGLOBIN. 8.4 g/dL (14.0-18.0); LYMPHOCYTES % 31.4 % (20.0-50.0); MEAN CORPUSCULAR HEMOGLOBIN 31.1 pg (28.0-32.0); MEAN CORPUSCULAR VOLUME 90.8 fL (80.0-94.0); MONOCYTES % 9.2 % (2.0-8.0); NEUTROPHILS % 55.3 % (40.0-76.0); PLATELET 178 x1000/uL (130-400); RED BLOOD CELL COUNT 2.71 mill/uL (4.7-6.1)
[2017-07-11 07:40] LABS: CARBON DIOXIDE 34 mEq/L (21-32); CHLORIDE 98 mEq/L (98-107)
[2017-07-11] MEDS: MULTIVITAMINS,THER W-MINERALS TABLET GT SCH (08:25)
[2017-07-11] MEDS: ZINC SULFATE 220 MG ( 50 ) CAPSULE GT SCH (08:26)
[2017-07-11] MEDS: LEVETIRACETAM 500MG/5ML CUP PO SCH ×2 (08:26→20:51)
[2017-07-11] MEDS: ASCORBIC ACID 250 MG TABLET GT SCH (08:26)
[2017-07-11] MEDS: PHENYTOIN 100 MG/4 ML UDC NG SCH ×2 (08:26→17:38)
[2017-07-11] MEDS: SPIRONOLACTONE 25MG TABLET NG SCH (08:27)
[2017-07-12] VITALS (12 sets, daily range): BP systolic 107–149; BP diastolic 53–88
[2017-07-12] MEDS: HYDRALAZINE HCL 50MG TABLET PEG SCH ×5 (00:03→23:10)
[2017-07-12] MEDS: AMLODIPINE 2.5MG TABLET NG SCH ×5 (00:03→23:10)
[2017-07-12] MEDS: MINOXIDIL 2.5MG TABLET NG SCH ×5 (00:04→23:09)
[2017-07-12] MEDS: METOPROLOL TARTRATE 50MG TABLET PEG SCH ×5 (00:04→23:11)
[2017-07-12] MEDS: IPRATROPIUM/ALBUTEROL 0.5-3(2.5)MG/3ML NEB HHN SCH ×6 (00:16→20:29)
[2017-07-12] MEDS: PIPERACILLIN/TAZ 3.375G PREMIX 50 ML IV SCH ×4 (01:53→20:50)
[2017-07-12] MEDS: TERAZOSIN HCL 5MG CAPSULE NG SCH ×3 (06:00→21:22)
[2017-07-12] MEDS: ZINC SULFATE 220 MG ( 50 ) CAPSULE GT SCH (08:04)
[2017-07-12] MEDS: ASCORBIC ACID 250 MG TABLET GT SCH (08:04)
[2017-07-12] MEDS: MULTIVITAMINS,THER W-MINERALS TABLET GT SCH (08:04)
[2017-07-12] MEDS: PHENYTOIN 100 MG/4 ML UDC NG SCH ×2 (08:05→17:19)
[2017-07-12] MEDS: LEVETIRACETAM 500MG/5ML CUP PO SCH ×2 (08:05→20:51)
[2017-07-12] MEDS: SPIRONOLACTONE 25MG TABLET NG SCH (08:05)
[2017-07-13] VITALS (12 sets, daily range): BP systolic 102–170; BP diastolic 65–90
[2017-07-13] MEDS: IPRATROPIUM/ALBUTEROL 0.5-3(2.5)MG/3ML NEB HHN SCH ×6 (00:08→20:06)
[2017-07-13] MEDS: PIPERACILLIN/TAZ 3.375G PREMIX 50 ML IV SCH ×4 (01:15→21:41)
[2017-07-13] MEDS: METOPROLOL TARTRATE 50MG TABLET PEG SCH ×3 (05:47→17:36)
[2017-07-13] MEDS: MINOXIDIL 2.5MG TABLET NG SCH ×3 (05:48→17:36)
[2017-07-13] MEDS: AMLODIPINE 2.5MG TABLET NG SCH ×3 (05:48→17:36)
[2017-07-13] MEDS: HYDRALAZINE HCL 50MG TABLET PEG SCH ×3 (05:48→17:37)
[2017-07-13] MEDS: TERAZOSIN HCL 5MG CAPSULE NG SCH ×3 (05:49→21:42)
[2017-07-13 07:50] LABS: EOSINOPHILS % 3.7 % (0.0-5.0); LYMPHOCYTES % 26.2 % (20.0-50.0); MEAN CORPUSCULAR HEMOGLOBIN 30.3 pg (28.0-32.0); MEAN CORPUSCULAR VOLUME 90.8 fL (80.0-94.0); MEAN PLATELET VOLUME 9.1 fl (7.4-10.4); MONOCYTES % 9.4 % (2.0-8.0); NEUTROPHILS % 59.7 % (40.0-76.0); PLATELET 184 x1000/uL (130-400); RED BLOOD CELL COUNT 2.64 mill/uL (4.7-6.1)
[2017-07-13 08:14] LABS: CARBON DIOXIDE 35 mEq/L (21-32); CHLORIDE 99 mEq/L (98-107)
[2017-07-13] MEDS: PHENYTOIN 100 MG/4 ML UDC NG SCH ×2 (08:20→17:35)
[2017-07-13] MEDS: MULTIVITAMINS,THER W-MINERALS TABLET GT SCH (08:21)
[2017-07-13] MEDS: ASCORBIC ACID 250 MG TABLET GT SCH (08:21)
[2017-07-13] MEDS: ZINC SULFATE 220 MG ( 50 ) CAPSULE GT SCH (08:21)
[2017-07-13] MEDS: SPIRONOLACTONE 25MG TABLET NG SCH (08:21)
[2017-07-13] MEDS: LEVETIRACETAM 500MG/5ML CUP PO SCH ×2 (08:22→21:54)
[2017-07-13] MEDS ORDERED: FUROSEMIDE 40MG/4ML VIAL IVP NR (12:45)
[2017-07-14] VITALS (12 sets, daily range): BP systolic 124–179; BP diastolic 63–101
[2017-07-14] MEDS: IPRATROPIUM/ALBUTEROL 0.5-3(2.5)MG/3ML NEB HHN SCH ×6 (00:12→20:00)
[2017-07-14] MEDS: MINOXIDIL 2.5MG TABLET NG SCH ×4 (00:26→18:17)
[2017-07-14] MEDS: AMLODIPINE 2.5MG TABLET NG SCH ×4 (00:26→18:18)
[2017-07-14] MEDS: HYDRALAZINE HCL 50MG TABLET PEG SCH ×4 (00:26→18:17)
[2017-07-14] MEDS: METOPROLOL TARTRATE 50MG TABLET PEG SCH ×4 (00:27→18:18)
[2017-07-14] MEDS: PIPERACILLIN/TAZ 3.375G PREMIX 50 ML IV SCH ×4 (01:48→20:56)
[2017-07-14] MEDS: TERAZOSIN HCL 5MG CAPSULE NG SCH ×3 (06:16→21:00)
[2017-07-14 08:09] LABS: EOSINOPHILS % 3.7 % (0.0-5.0); HEMATOCRIT. 23.5 % (42.0-52.0); MEAN CORPUSCULAR VOLUME 91.1 fL (80.0-94.0); MEAN PLATELET VOLUME 9.1 fl (7.4-10.4); MONOCYTES % 9.1 % (2.0-8.0); NEUTROPHILS % 64.2 % (40.0-76.0); PLATELET 186 x1000/uL (130-400); RED BLOOD CELL COUNT 2.58 mill/uL (4.7-6.1); RED CELL DISTRIBUTION WIDTH 18.2 % (11.6-14.6)
[2017-07-14 08:40] LABS: CARBON DIOXIDE 35 mEq/L (21-32); CHLORIDE 98 mEq/L (98-107)
[2017-07-14] MEDS: ASCORBIC ACID 250 MG TABLET GT SCH (09:47)
[2017-07-14] MEDS: ZINC SULFATE 220 MG ( 50 ) CAPSULE GT SCH (09:47)
[2017-07-14] MEDS: LEVETIRACETAM 500MG/5ML CUP PO SCH ×2 (09:47→20:56)
[2017-07-14] MEDS: FUROSEMIDE 20MG/2ML VIAL IVP SCH (09:47)
[2017-07-14] MEDS: MULTIVITAMINS,THER W-MINERALS TABLET GT SCH (09:47)
[2017-07-14] MEDS: SPIRONOLACTONE 25MG TABLET NG SCH (09:47)
[2017-07-14] MEDS: PHENYTOIN 100 MG/4 ML UDC NG SCH ×2 (09:47→18:18)
[2017-07-15] VITALS (12 sets, daily range): BP systolic 107–149; BP diastolic 57–83
[2017-07-15] MEDS: MINOXIDIL 2.5MG TABLET NG SCH ×4 (00:36→17:38)
[2017-07-15] MEDS: METOPROLOL TARTRATE 50MG TABLET PEG SCH ×4 (00:36→17:38)
[2017-07-15] MEDS: AMLODIPINE 2.5MG TABLET NG SCH ×4 (00:36→17:38)
[2017-07-15] MEDS: HYDRALAZINE HCL 50MG TABLET PEG SCH ×4 (00:36→17:37)
[2017-07-15] MEDS: IPRATROPIUM/ALBUTEROL 0.5-3(2.5)MG/3ML NEB HHN SCH ×6 (01:07→21:00)
[2017-07-15] MEDS: PIPERACILLIN/TAZ 3.375G PREMIX 50 ML IV SCH ×4 (03:47→21:51)
[2017-07-15] MEDS: TERAZOSIN HCL 5MG CAPSULE NG SCH ×3 (05:43→21:52)
[2017-07-15 07:55] LABS: BASOPHILS % 1.4 % (0.0-2.0); EOSINOPHILS % 4.1 % (0.0-5.0); HEMATOCRIT. 23.8 % (42.0-52.0); HEMOGLOBIN. 7.9 g/dL (14.0-18.0); MEAN CORPUSCULAR HEMOGLOBIN 30.3 pg (28.0-32.0); MEAN CORPUSCULAR VOLUME 91.1 fL (80.0-94.0); MEAN PLATELET VOLUME 8.3 fl (7.4-10.4); MONOCYTES % 9.3 % (2.0-8.0); NEUTROPHILS % 61.2 % (40.0-76.0); PLATELET 182 x1000/uL (130-400); RED BLOOD CELL COUNT 2.62 mill/uL (4.7-6.1)
[2017-07-15 08:25] LABS: CARBON DIOXIDE 34 mEq/L (21-32); CHLORIDE 100 mEq/L (98-107)
[2017-07-15] MEDS: ASCORBIC ACID 250 MG TABLET GT SCH (08:59)
[2017-07-15] MEDS: PHENYTOIN 100 MG/4 ML UDC NG SCH ×2 (08:59→17:36)
[2017-07-15] MEDS: MULTIVITAMINS,THER W-MINERALS TABLET GT SCH (08:59)
[2017-07-15] MEDS: FUROSEMIDE 20MG/2ML VIAL IVP SCH (08:59)
[2017-07-15] MEDS: ZINC SULFATE 220 MG ( 50 ) CAPSULE GT SCH (08:59)
[2017-07-15] MEDS: SPIRONOLACTONE 25MG TABLET NG SCH (09:00)
[2017-07-15] MEDS ORDERED: PHENYTOIN SODIUM 300 MG in SODIUM CHLORIDE 0.9% 50 ML IV SCH (09:00)
[2017-07-15] MEDS: LEVETIRACETAM 500MG/5ML CUP PO SCH ×2 (09:16→21:52)
[2017-07-15] MEDS: NYSTATIN POWDER 15GM TOP SCH ×2 (14:35→21:52)
[2017-07-16] VITALS (12 sets, daily range): BP systolic 112–166; BP diastolic 60–85
[2017-07-16] MEDS: HYDRALAZINE HCL 50MG TABLET PEG SCH ×4 (00:34→18:08)
[2017-07-16] MEDS: METOPROLOL TARTRATE 50MG TABLET PEG SCH ×4 (00:35→18:08)
[2017-07-16] MEDS: MINOXIDIL 2.5MG TABLET NG SCH ×4 (00:35→18:08)
[2017-07-16] MEDS: AMLODIPINE 2.5MG TABLET NG SCH ×4 (00:35→18:08)
[2017-07-16] MEDS: IPRATROPIUM/ALBUTEROL 0.5-3(2.5)MG/3ML NEB HHN SCH ×6 (00:41→20:55)
[2017-07-16] MEDS: TERAZOSIN HCL 5MG CAPSULE NG SCH ×3 (06:38→21:40)
[2017-07-16 07:13] LABS: EOSINOPHILS % 1.2 % (0.0-5.0); HEMATOCRIT. 23.7 % (42.0-52.0); LYMPHOCYTES % 21.2 % (20.0-50.0); MEAN CORPUSCULAR VOLUME 91.9 fL (80.0-94.0); MEAN PLATELET VOLUME 8.8 fl (7.4-10.4); MONOCYTES % 7.9 % (2.0-8.0); NEUTROPHILS % 69.7 % (40.0-76.0); PLATELET 178 x1000/uL (130-400); RED BLOOD CELL COUNT 2.58 mill/uL (4.7-6.1); RED CELL DISTRIBUTION WIDTH 18.2 % (11.6-14.6)
[2017-07-16 07:42] LABS: CARBON DIOXIDE 36 mEq/L (21-32); CHLORIDE 99 mEq/L (98-107)
[2017-07-16] MEDS: MULTIVITAMINS,THER W-MINERALS TABLET GT SCH (09:31)
[2017-07-16] MEDS: LACTOBACILLUS GG CAPSULE PO SCH (09:31)
[2017-07-16] MEDS: ASCORBIC ACID 250 MG TABLET GT SCH (09:31)
[2017-07-16] MEDS: SPIRONOLACTONE 25MG TABLET NG SCH (09:32)
[2017-07-16] MEDS: FUROSEMIDE 20MG/2ML VIAL IVP SCH (09:33)
[2017-07-16] MEDS: NYSTATIN POWDER 15GM TOP SCH ×2 (09:33→21:41)
[2017-07-16] MEDS: LEVETIRACETAM 500MG/5ML CUP PO SCH ×2 (09:34→21:40)
[2017-07-16] MEDS: PHENYTOIN 100 MG/4 ML UDC NG SCH ×2 (09:34→17:59)
[2017-07-16] MEDS: ZINC SULFATE 220 MG ( 50 ) CAPSULE GT SCH (09:34)
[2017-07-17] VITALS (12 sets, daily range): BP systolic 123–174; BP diastolic 55–92
[2017-07-17] MEDS: IPRATROPIUM/ALBUTEROL 0.5-3(2.5)MG/3ML NEB HHN SCH ×6 (00:41→20:34)
[2017-07-17] MEDS: MINOXIDIL 2.5MG TABLET NG SCH ×5 (01:04→23:34)
[2017-07-17] MEDS: AMLODIPINE 2.5MG TABLET NG SCH ×5 (01:04→23:34)
[2017-07-17] MEDS: METOPROLOL TARTRATE 50MG TABLET PEG SCH ×5 (01:05→23:34)
[2017-07-17] MEDS: HYDRALAZINE HCL 50MG TABLET PEG SCH ×5 (01:05→23:33)
[2017-07-17] MEDS: TERAZOSIN HCL 5MG CAPSULE NG SCH ×3 (05:36→21:26)
[2017-07-17 06:28] LABS: BASOPHILS % 1.3 % (0.0-2.0); EOSINOPHILS % 4.8 % (0.0-5.0); HEMATOCRIT. 23.7 % (42.0-52.0); HEMOGLOBIN. 8.1 g/dL (14.0-18.0); LYMPHOCYTES % 27.8 % (20.0-50.0); MEAN CORPUSCULAR HEMOGLOBIN 31.4 pg (28.0-32.0); MEAN PLATELET VOLUME 8.9 fl (7.4-10.4); MONOCYTES % 9.7 % (2.0-8.0); NEUTROPHILS % 56.4 % (40.0-76.0); PLATELET 183 x1000/uL (130-400); RED BLOOD CELL COUNT 2.57 mill/uL (4.7-6.1); RED CELL DISTRIBUTION WIDTH 18.3 % (11.6-14.6)
[2017-07-17 06:45] LABS: CARBON DIOXIDE 36 mEq/L (21-32); CHLORIDE 99 mEq/L (98-107)
[2017-07-17] MEDS: ASCORBIC ACID 250 MG TABLET GT SCH (09:41)
[2017-07-17] MEDS: MULTIVITAMINS,THER W-MINERALS TABLET GT SCH (09:41)
[2017-07-17] MEDS: LEVETIRACETAM 500MG/5ML CUP PO SCH ×2 (09:42→20:00)
[2017-07-17] MEDS: ZINC SULFATE 220 MG ( 50 ) CAPSULE GT SCH (09:42)
[2017-07-17] MEDS: FUROSEMIDE 20MG/2ML VIAL IVP SCH (09:42)
[2017-07-17] MEDS: LACTOBACILLUS GG CAPSULE PO SCH (09:42)
[2017-07-17] MEDS: SPIRONOLACTONE 25MG TABLET NG SCH (09:42)
[2017-07-17] MEDS: PHENYTOIN 100 MG/4 ML UDC NG SCH ×2 (09:42→17:25)
[2017-07-17] MEDS: NYSTATIN POWDER 15GM TOP SCH ×2 (09:44→20:00)
[2017-07-18] VITALS (12 sets, daily range): BP systolic 126–172; BP diastolic 63–127
[2017-07-18] MEDS: IPRATROPIUM/ALBUTEROL 0.5-3(2.5)MG/3ML NEB HHN SCH ×5 (00:21→20:50)
[2017-07-18] MEDS: HYDRALAZINE HCL 50MG TABLET PEG SCH ×3 (05:08→17:26)
[2017-07-18] MEDS: MINOXIDIL 2.5MG TABLET NG SCH ×3 (05:08→17:25)
[2017-07-18] MEDS: TERAZOSIN HCL 5MG CAPSULE NG SCH ×2 (05:08→13:52)
[2017-07-18] MEDS: AMLODIPINE 2.5MG TABLET NG SCH ×3 (05:09→17:26)
[2017-07-18] MEDS: METOPROLOL TARTRATE 50MG TABLET PEG SCH ×3 (05:09→17:26)
[2017-07-18] MEDS: PHENYTOIN 100 MG/4 ML UDC NG SCH ×2 (10:09→17:25)
[2017-07-18] MEDS: SPIRONOLACTONE 25MG TABLET NG SCH (10:09)
[2017-07-18] MEDS: LEVETIRACETAM 500MG/5ML CUP PO SCH ×2 (10:09→20:57)
[2017-07-18] MEDS: ASCORBIC ACID 250 MG TABLET GT SCH (10:09)
[2017-07-18] MEDS: FUROSEMIDE 20MG/2ML VIAL IVP SCH (10:10)
[2017-07-18] MEDS: MULTIVITAMINS,THER W-MINERALS TABLET GT SCH (10:10)
[2017-07-18] MEDS: ZINC SULFATE 220 MG ( 50 ) CAPSULE GT SCH (10:10)
[2017-07-18] MEDS: ACETAMINOPHEN 650MG/20.3ML UDC PO PRN (10:10)
[2017-07-18] MEDS: LACTOBACILLUS GG CAPSULE PO SCH (10:10)
[2017-07-18] MEDS: NYSTATIN POWDER 15GM TOP SCH ×2 (13:50→20:57)
[2017-07-18] MEDS: TERAZOSIN HCL 5MG CAPSULE PEG SCH (21:00)
[2017-07-19] VITALS (11 sets, daily range): BP systolic 130–162; BP diastolic 70–88
[2017-07-19] MEDS: AMLODIPINE 2.5MG TABLET NG SCH ×3 (00:13→12:50)
[2017-07-19] MEDS: HYDRALAZINE HCL 50MG TABLET PEG SCH ×4 (00:13→17:24)
[2017-07-19] MEDS: MINOXIDIL 2.5MG TABLET NG SCH ×4 (00:13→17:24)
[2017-07-19] MEDS: METOPROLOL TARTRATE 50MG TABLET PEG SCH ×4 (00:14→17:25)
[2017-07-19] MEDS: IPRATROPIUM/ALBUTEROL 0.5-3(2.5)MG/3ML NEB HHN SCH ×6 (00:48→20:23)
[2017-07-19] MEDS: TERAZOSIN HCL 5MG CAPSULE PEG SCH ×3 (05:19→21:24)
[2017-07-19 07:22] LABS: CARBON DIOXIDE 31 mEq/L (21-32); CHLORIDE 99 mEq/L (98-107)
[2017-07-19 07:31] LABS: BASOPHILS % 1.4 % (0.0-2.0); EOSINOPHILS % 4.6 % (0.0-5.0); HEMATOCRIT. 27.2 % (42.0-52.0); HEMOGLOBIN. 9.3 g/dL (14.0-18.0); LYMPHOCYTES % 32.1 % (20.0-50.0); MEAN CORPUSCULAR HEMOGLOBIN 31.5 pg (28.0-32.0); MEAN CORPUSCULAR VOLUME 92.2 fL (80.0-94.0); MEAN PLATELET VOLUME 8.7 fl (7.4-10.4); MONOCYTES % 9.6 % (2.0-8.0); NEUTROPHILS % 52.3 % (40.0-76.0); PLATELET 213 x1000/uL (130-400); RED BLOOD CELL COUNT 2.95 mill/uL (4.7-6.1); RED CELL DISTRIBUTION WIDTH 18.9 % (11.6-14.6)
[2017-07-19] MEDS: ZINC SULFATE 220 MG ( 50 ) CAPSULE GT SCH (09:49)
[2017-07-19] MEDS: ASCORBIC ACID 250 MG TABLET GT SCH (09:49)
[2017-07-19] MEDS: SPIRONOLACTONE 25MG TABLET NG SCH (09:49)
[2017-07-19] MEDS: LACTOBACILLUS GG CAPSULE PO SCH (09:50)
[2017-07-19] MEDS: FUROSEMIDE 20MG/2ML VIAL IVP SCH (09:50)
[2017-07-19] MEDS: NYSTATIN POWDER 15GM TOP SCH ×2 (09:50→21:25)
[2017-07-19] MEDS: LEVETIRACETAM 500MG/5ML CUP PO SCH ×2 (09:50→21:23)
[2017-07-19] MEDS: PHENYTOIN 100 MG/4 ML UDC NG SCH ×2 (09:50→17:01)
[2017-07-19] MEDS: MULTIVITAMINS,THER W-MINERALS TABLET GT SCH (09:50)
[2017-07-19] MEDS: ACETAMINOPHEN 650MG/20.3ML UDC PO PRN (09:51)
[2017-07-20] VITALS (12 sets, daily range): BP systolic 111–165; BP diastolic 56–82
[2017-07-20] MEDS: IPRATROPIUM/ALBUTEROL 0.5-3(2.5)MG/3ML NEB HHN SCH ×6 (00:30→19:53)
[2017-07-20] MEDS: MINOXIDIL 2.5MG TABLET NG SCH ×5 (00:35→23:45)
[2017-07-20] MEDS: METOPROLOL TARTRATE 50MG TABLET PEG SCH ×5 (00:35→23:45)
[2017-07-20] MEDS: HYDRALAZINE HCL 50MG TABLET PEG SCH ×5 (00:36→23:45)
[2017-07-20] MEDS: TERAZOSIN HCL 5MG CAPSULE PEG SCH ×3 (05:12→21:20)
[2017-07-20] MEDS: PHENYTOIN 100 MG/4 ML UDC NG SCH ×2 (08:01→17:08)
[2017-07-20] MEDS: ASCORBIC ACID 250 MG TABLET GT SCH (08:01)
[2017-07-20] MEDS: SPIRONOLACTONE 25MG TABLET NG SCH (08:02)
[2017-07-20] MEDS: LEVETIRACETAM 500MG/5ML CUP PO SCH ×2 (08:03→20:39)
[2017-07-20] MEDS: MULTIVITAMINS,THER W-MINERALS TABLET GT SCH (08:03)
[2017-07-20] MEDS: LACTOBACILLUS GG CAPSULE PO SCH (08:03)
[2017-07-20] MEDS: ZINC SULFATE 220 MG ( 50 ) CAPSULE GT SCH (08:03)
[2017-07-20] MEDS: FUROSEMIDE 20MG/2ML VIAL IVP SCH (08:03)
[2017-07-20] MEDS: NYSTATIN POWDER 15GM TOP SCH ×2 (08:03→20:40)
[2017-07-21] VITALS (12 sets, daily range): BP systolic 126–159; BP diastolic 64–91
[2017-07-21] MEDS: IPRATROPIUM/ALBUTEROL 0.5-3(2.5)MG/3ML NEB HHN SCH ×6 (00:48→20:02)
[2017-07-21] MEDS: METOPROLOL TARTRATE 50MG TABLET PEG SCH ×4 (05:22→23:38)
[2017-07-21] MEDS: TERAZOSIN HCL 5MG CAPSULE PEG SCH ×3 (05:22→21:59)
[2017-07-21] MEDS: MINOXIDIL 2.5MG TABLET NG SCH ×4 (05:22→23:39)
[2017-07-21] MEDS: HYDRALAZINE HCL 50MG TABLET PEG SCH ×4 (05:23→23:39)
[2017-07-21 06:54] LABS: BASOPHILS % 1.7 % (0.0-2.0); EOSINOPHILS % 4.8 % (0.0-5.0); HEMATOCRIT. 25.5 % (42.0-52.0); HEMOGLOBIN. 8.7 g/dL (14.0-18.0); LYMPHOCYTES % 35.9 % (20.0-50.0); MEAN CORPUSCULAR HEMOGLOBIN 31.4 pg (28.0-32.0); MEAN PLATELET VOLUME 8.6 fl (7.4-10.4); MONOCYTES % 10.4 % (2.0-8.0); NEUTROPHILS % 47.2 % (40.0-76.0); PLATELET 215 x1000/uL (130-400); RED BLOOD CELL COUNT 2.77 mill/uL (4.7-6.1); RED CELL DISTRIBUTION WIDTH 19.5 % (11.6-14.6)
[2017-07-21 07:04] LABS: CARBON DIOXIDE 34 mEq/L (21-32); CHLORIDE 100 mEq/L (98-107)
[2017-07-21] MEDS: LACTOBACILLUS GG CAPSULE PO SCH (08:44)
[2017-07-21] MEDS: MULTIVITAMINS,THER W-MINERALS TABLET GT SCH (08:44)
[2017-07-21] MEDS: PHENYTOIN 100 MG/4 ML UDC NG SCH ×2 (08:45→17:33)
[2017-07-21] MEDS: ZINC SULFATE 220 MG ( 50 ) CAPSULE GT SCH (08:45)
[2017-07-21] MEDS: FUROSEMIDE 20MG/2ML VIAL IVP SCH (08:45)
[2017-07-21] MEDS: SPIRONOLACTONE 25MG TABLET NG SCH (08:45)
[2017-07-21] MEDS: LEVETIRACETAM 500MG/5ML CUP PO SCH ×2 (08:45→20:34)
[2017-07-21] MEDS: ASCORBIC ACID 250 MG TABLET GT SCH (08:45)
[2017-07-21] MEDS: NYSTATIN POWDER 15GM TOP SCH ×2 (08:46→21:59)
[2017-07-22] VITALS (14 sets, daily range): BP systolic 122–181; BP diastolic 67–96
[2017-07-22] MEDS: IPRATROPIUM/ALBUTEROL 0.5-3(2.5)MG/3ML NEB HHN SCH ×6 (00:20→20:40)
[2017-07-22] MEDS: METOPROLOL TARTRATE 50MG TABLET PEG SCH ×3 (06:16→17:20)
[2017-07-22] MEDS: MINOXIDIL 2.5MG TABLET NG SCH ×3 (06:16→17:20)
[2017-07-22] MEDS: HYDRALAZINE HCL 50MG TABLET PEG SCH ×3 (06:16→17:21)
[2017-07-22] MEDS: TERAZOSIN HCL 5MG CAPSULE PEG SCH ×3 (06:16→21:41)
[2017-07-22] MEDS: LEVETIRACETAM 500MG/5ML CUP PO SCH ×2 (09:13→21:40)
[2017-07-22] MEDS: ZINC SULFATE 220 MG ( 50 ) CAPSULE GT SCH (09:14)
[2017-07-22] MEDS: SPIRONOLACTONE 25MG TABLET NG SCH (09:14)
[2017-07-22] MEDS: LACTOBACILLUS GG CAPSULE PO SCH (09:14)
[2017-07-22] MEDS: PHENYTOIN 100 MG/4 ML UDC NG SCH ×2 (09:14→17:20)
[2017-07-22] MEDS: MULTIVITAMINS,THER W-MINERALS TABLET GT SCH (09:14)
[2017-07-22] MEDS: ASCORBIC ACID 250 MG TABLET GT SCH (09:15)
[2017-07-22] MEDS: NYSTATIN POWDER 15GM TOP SCH ×2 (09:16→21:41)
[2017-07-22] MEDS: FUROSEMIDE 20MG/2ML VIAL IVP SCH (09:31)
[2017-07-22] MEDS ORDERED: PHENYTOIN SODIUM 500 MG in SODIUM CHLORIDE 0.9% 50 ML IV SCH (13:30)
[2017-07-23] VITALS (12 sets, daily range): BP systolic 138–185; BP diastolic 57–101
[2017-07-23] MEDS: IPRATROPIUM/ALBUTEROL 0.5-3(2.5)MG/3ML NEB HHN SCH ×6 (00:13→20:37)
[2017-07-23] MEDS: MINOXIDIL 2.5MG TABLET NG SCH (00:31)
[2017-07-23] MEDS: HYDRALAZINE HCL 50MG TABLET PEG SCH ×2 (00:31→23:04)
[2017-07-23] MEDS: METOPROLOL TARTRATE 50MG TABLET PEG SCH ×2 (00:31→23:03)
[2017-07-23] MEDS: TERAZOSIN HCL 5MG CAPSULE PEG SCH ×3 (05:35→21:10)
[2017-07-23 06:45] LABS: BASOPHILS % 1.7 % (0.0-2.0); EOSINOPHILS % 6.7 % (0.0-5.0); HEMATOCRIT. 27.8 % (42.0-52.0); HEMOGLOBIN. 9.5 g/dL (14.0-18.0); LYMPHOCYTES % 30.2 % (20.0-50.0); MEAN CORPUSCULAR HEMOGLOBIN 31.9 pg (28.0-32.0); MEAN CORPUSCULAR VOLUME 93.3 fL (80.0-94.0); MEAN PLATELET VOLUME 8.7 fl (7.4-10.4); MONOCYTES % 10.2 % (2.0-8.0); NEUTROPHILS % 51.2 % (40.0-76.0); PLATELET 216 x1000/uL (130-400); RED BLOOD CELL COUNT 2.98 mill/uL (4.7-6.1); RED CELL DISTRIBUTION WIDTH 19.5 % (11.6-14.6)
[2017-07-23 07:16] LABS: CARBON DIOXIDE 32 mEq/L (21-32); CHLORIDE 100 mEq/L (98-107); PHOSPHORUS 3.4 mg/dL (2.5-4.9)
[2017-07-23] MEDS: PHENYTOIN 100 MG/4 ML UDC NG SCH ×2 (08:20→17:45)
[2017-07-23] MEDS: ZINC SULFATE 220 MG ( 50 ) CAPSULE GT SCH (08:20)
[2017-07-23] MEDS: LACTOBACILLUS GG CAPSULE PO SCH (08:20)
[2017-07-23] MEDS: LEVETIRACETAM 500MG/5ML CUP PO SCH ×2 (08:22→21:10)
[2017-07-23] MEDS: ASCORBIC ACID 250 MG TABLET GT SCH (08:22)
[2017-07-23] MEDS: SPIRONOLACTONE 25MG TABLET NG SCH (08:22)
[2017-07-23] MEDS: FUROSEMIDE 20MG/2ML VIAL IVP SCH (08:22)
[2017-07-23] MEDS: MULTIVITAMINS,THER W-MINERALS TABLET GT SCH (08:22)
[2017-07-23] MEDS: HYDRALAZINE 20MG/ML VIAL IV PRN (17:45)
[2017-07-23] MEDS: MINOXIDIL 2.5MG TABLET PEG SCH (23:04)
[2017-07-24] VITALS (12 sets, daily range): BP systolic 139–188; BP diastolic 72–92
[2017-07-24] MEDS: IPRATROPIUM/ALBUTEROL 0.5-3(2.5)MG/3ML NEB HHN SCH ×6 (00:08→20:56)
[2017-07-24] MEDS: HYDRALAZINE HCL 50MG TABLET PEG SCH ×4 (05:16→23:06)
[2017-07-24] MEDS: METOPROLOL TARTRATE 50MG TABLET PEG SCH ×4 (05:16→23:06)
[2017-07-24] MEDS: TERAZOSIN HCL 5MG CAPSULE PEG SCH ×3 (05:16→21:22)
[2017-07-24] MEDS: MINOXIDIL 2.5MG TABLET PEG SCH ×4 (05:17→23:06)
[2017-07-24] MEDS: LACTOBACILLUS GG CAPSULE PO SCH (09:17)
[2017-07-24] MEDS: LEVETIRACETAM 500MG/5ML CUP PO SCH ×2 (09:17→21:22)
[2017-07-24] MEDS: PHENYTOIN 100 MG/4 ML UDC NG SCH ×2 (09:17→17:10)
[2017-07-24] MEDS: ZINC SULFATE 220 MG ( 50 ) CAPSULE GT SCH (09:17)
[2017-07-24] MEDS: MULTIVITAMINS,THER W-MINERALS TABLET GT SCH (09:17)
[2017-07-24] MEDS: FUROSEMIDE 20MG/2ML VIAL IVP SCH (09:18)
[2017-07-24] MEDS: ASCORBIC ACID 250 MG TABLET GT SCH (09:18)
[2017-07-24] MEDS: SPIRONOLACTONE 25MG TABLET PEG SCH (09:18)
[2017-07-24] MEDS: HYDRALAZINE 20MG/ML VIAL IV PRN (15:45)
[2017-07-25] VITALS (12 sets, daily range): BP systolic 124–161; BP diastolic 70–91
[2017-07-25] MEDS: IPRATROPIUM/ALBUTEROL 0.5-3(2.5)MG/3ML NEB HHN SCH ×6 (00:52→20:32)
[2017-07-25] MEDS: HYDRALAZINE HCL 50MG TABLET PEG SCH ×4 (05:01→23:45)
[2017-07-25] MEDS: TERAZOSIN HCL 5MG CAPSULE PEG SCH ×3 (05:01→23:44)
[2017-07-25] MEDS: METOPROLOL TARTRATE 50MG TABLET PEG SCH ×4 (05:02→23:44)
[2017-07-25] MEDS: MINOXIDIL 2.5MG TABLET PEG SCH ×4 (05:02→23:45)
[2017-07-25 06:13] LABS: CARBON DIOXIDE 34 mEq/L (21-32); CHLORIDE 98 mEq/L (98-107)
[2017-07-25 06:24] LABS: BASOPHILS % 1.8 % (0.0-2.0); EOSINOPHILS % 7.3 % (0.0-5.0); HEMATOCRIT. 28.7 % (42.0-52.0); HEMOGLOBIN. 9.9 g/dL (14.0-18.0); LYMPHOCYTES % 32.9 % (20.0-50.0); MEAN CORPUSCULAR HEMOGLOBIN 32.5 pg (28.0-32.0); MEAN CORPUSCULAR VOLUME 94.1 fL (80.0-94.0); MEAN PLATELET VOLUME 8.6 fl (7.4-10.4); MONOCYTES % 10.2 % (2.0-8.0); NEUTROPHILS % 47.8 % (40.0-76.0); PLATELET 217 x1000/uL (130-400); RED BLOOD CELL COUNT 3.05 mill/uL (4.7-6.1); RED CELL DISTRIBUTION WIDTH 19.7 % (11.6-14.6)
[2017-07-25] MEDS: FUROSEMIDE 20MG/2ML VIAL IVP SCH (09:47)
[2017-07-25] MEDS: ZINC SULFATE 220 MG ( 50 ) CAPSULE GT SCH (09:47)
[2017-07-25] MEDS: LACTOBACILLUS GG CAPSULE PO SCH (09:47)
[2017-07-25] MEDS: LEVETIRACETAM 500MG/5ML CUP PO SCH ×2 (09:48→23:45)
[2017-07-25] MEDS: ASCORBIC ACID 250 MG TABLET GT SCH (09:48)
[2017-07-25] MEDS: PHENYTOIN 100 MG/4 ML UDC NG SCH ×2 (09:48→17:39)
[2017-07-25] MEDS: MULTIVITAMINS,THER W-MINERALS TABLET GT SCH (09:48)
[2017-07-25] MEDS: SPIRONOLACTONE 25MG TABLET PEG SCH (09:49)
[2017-07-25] MEDS ORDERED: PHENYTOIN SODIUM 1,000 MG in SODIUM CHLORIDE 0.9% 100 ML IV SCH (10:00)
[2017-07-25] MEDS: AMLODIPINE 2.5MG TABLET PEG SCH (18:07)
[2017-07-26] VITALS (12 sets, daily range): BP systolic 126–176; BP diastolic 68–89
[2017-07-26] MEDS: AMLODIPINE 2.5MG TABLET PEG SCH ×4 (00:04→17:44)
[2017-07-26] MEDS: IPRATROPIUM/ALBUTEROL 0.5-3(2.5)MG/3ML NEB HHN SCH ×6 (00:33→20:31)
[2017-07-26] MEDS: MINOXIDIL 2.5MG TABLET PEG SCH ×3 (06:09→17:44)
[2017-07-26] MEDS: HYDRALAZINE HCL 50MG TABLET PEG SCH ×3 (06:10→17:45)
[2017-07-26] MEDS: TERAZOSIN HCL 5MG CAPSULE PEG SCH ×3 (06:10→21:24)
[2017-07-26] MEDS: METOPROLOL TARTRATE 50MG TABLET PEG SCH ×3 (06:11→17:44)
[2017-07-26] MEDS: FUROSEMIDE 20MG/2ML VIAL IVP SCH (09:10)
[2017-07-26] MEDS: LEVETIRACETAM 500MG/5ML CUP PO SCH ×2 (09:10→21:24)
[2017-07-26] MEDS: ZINC SULFATE 220 MG ( 50 ) CAPSULE GT SCH (09:10)
[2017-07-26] MEDS: PHENYTOIN 100 MG/4 ML UDC NG SCH ×2 (09:10→17:44)
[2017-07-26] MEDS: LACTOBACILLUS GG CAPSULE PO SCH (09:10)
[2017-07-26] MEDS: SPIRONOLACTONE 25MG TABLET PEG SCH (09:10)
[2017-07-26] MEDS: ASCORBIC ACID 250 MG TABLET GT SCH (09:11)
[2017-07-26] MEDS: MULTIVITAMINS,THER W-MINERALS TABLET GT SCH (09:11)
[2017-07-26] MEDS: ACETAMINOPHEN 650MG/20.3ML UDC PO PRN (21:24)
[2017-07-27] VITALS (12 sets, daily range): BP systolic 122–169; BP diastolic 69–95
[2017-07-27] MEDS: IPRATROPIUM/ALBUTEROL 0.5-3(2.5)MG/3ML NEB HHN SCH ×6 (00:31→20:54)
[2017-07-27] MEDS: AMLODIPINE 2.5MG TABLET PEG SCH ×4 (00:49→17:09)
[2017-07-27] MEDS: METOPROLOL TARTRATE 50MG TABLET PEG SCH ×4 (00:50→17:10)
[2017-07-27] MEDS: HYDRALAZINE HCL 50MG TABLET PEG SCH ×4 (00:50→17:09)
[2017-07-27] MEDS: MINOXIDIL 2.5MG TABLET PEG SCH ×4 (00:50→17:10)
[2017-07-27] MEDS: TERAZOSIN HCL 5MG CAPSULE PEG SCH ×3 (05:57→21:31)
[2017-07-27 07:09] LABS: CARBON DIOXIDE 34 mEq/L (21-32); CHLORIDE 99 mEq/L (98-107)
[2017-07-27 07:18] LABS: BASOPHILS % 2.2 % (0.0-2.0); HEMATOCRIT. 30.5 % (42.0-52.0); HEMOGLOBIN. 10.6 g/dL (14.0-18.0); LYMPHOCYTES % 35.3 % (20.0-50.0); MEAN CORPUSCULAR HEMOGLOBIN 32.8 pg (28.0-32.0); MEAN CORPUSCULAR VOLUME 94.4 fL (80.0-94.0); MEAN PLATELET VOLUME 8.6 fl (7.4-10.4); MONOCYTES % 10.6 % (2.0-8.0); NEUTROPHILS % 44.9 % (40.0-76.0); PLATELET 204 x1000/uL (130-400); RED BLOOD CELL COUNT 3.23 mill/uL (4.7-6.1); RED CELL DISTRIBUTION WIDTH 19.8 % (11.6-14.6)
[2017-07-27] MEDS: ZINC SULFATE 220 MG ( 50 ) CAPSULE GT SCH (08:23)
[2017-07-27] MEDS: LACTOBACILLUS GG CAPSULE PO SCH (08:23)
[2017-07-27] MEDS: PHENYTOIN 100 MG/4 ML UDC NG SCH ×2 (08:24→17:09)
[2017-07-27] MEDS: FUROSEMIDE 20MG/2ML VIAL IVP SCH (08:24)
[2017-07-27] MEDS: ASCORBIC ACID 250 MG TABLET GT SCH (08:24)
[2017-07-27] MEDS: MULTIVITAMINS,THER W-MINERALS TABLET GT SCH (08:24)
[2017-07-27] MEDS: LEVETIRACETAM 500MG/5ML CUP PO SCH ×2 (08:24→21:30)
[2017-07-27] MEDS: SPIRONOLACTONE 25MG TABLET PEG SCH (08:30)
[2017-07-28] VITALS (12 sets, daily range): BP systolic 126–178; BP diastolic 66–120
[2017-07-28] MEDS: AMLODIPINE 2.5MG TABLET PEG SCH ×5 (00:13→23:32)
[2017-07-28] MEDS: HYDRALAZINE HCL 50MG TABLET PEG SCH ×5 (00:13→23:33)
[2017-07-28] MEDS: MINOXIDIL 2.5MG TABLET PEG SCH ×5 (00:13→23:32)
[2017-07-28] MEDS: METOPROLOL TARTRATE 50MG TABLET PEG SCH ×5 (00:14→23:33)
[2017-07-28] MEDS: IPRATROPIUM/ALBUTEROL 0.5-3(2.5)MG/3ML NEB HHN SCH ×6 (00:53→20:14)
[2017-07-28] MEDS: TERAZOSIN HCL 5MG CAPSULE PEG SCH ×3 (06:04→21:02)
[2017-07-28] MEDS: FUROSEMIDE 20MG/2ML VIAL IVP SCH (08:39)
[2017-07-28] MEDS: SPIRONOLACTONE 25MG TABLET PEG SCH (08:39)
[2017-07-28] MEDS: LEVETIRACETAM 500MG/5ML CUP PO SCH ×2 (08:39→20:32)
[2017-07-28] MEDS: ZINC SULFATE 220 MG ( 50 ) CAPSULE GT SCH (08:39)
[2017-07-28] MEDS: PHENYTOIN 100 MG/4 ML UDC NG SCH ×2 (08:39→16:59)
[2017-07-28] MEDS: ASCORBIC ACID 250 MG TABLET GT SCH (08:39)
[2017-07-28] MEDS: LACTOBACILLUS GG CAPSULE PO SCH (08:39)
[2017-07-28] MEDS: MULTIVITAMINS,THER W-MINERALS TABLET GT SCH (08:40)
[2017-07-29] VITALS (23 sets, daily range): BP systolic 131–173; BP diastolic 72–99
[2017-07-29] MEDS: IPRATROPIUM/ALBUTEROL 0.5-3(2.5)MG/3ML NEB HHN SCH ×7 (00:14→23:56)
[2017-07-29] MEDS: TERAZOSIN HCL 5MG CAPSULE PEG SCH ×3 (05:02→21:09)
[2017-07-29] MEDS: METOPROLOL TARTRATE 50MG TABLET PEG SCH ×4 (05:02→23:08)
[2017-07-29] MEDS: MINOXIDIL 2.5MG TABLET PEG SCH ×4 (05:02→23:07)
[2017-07-29] MEDS: HYDRALAZINE HCL 50MG TABLET PEG SCH ×4 (05:02→23:07)
[2017-07-29] MEDS: AMLODIPINE 2.5MG TABLET PEG SCH ×4 (05:04→23:07)
[2017-07-29] MEDS: LACTOBACILLUS GG CAPSULE PO SCH (08:19)
[2017-07-29] MEDS: ASCORBIC ACID 250 MG TABLET GT SCH (08:19)
[2017-07-29] MEDS: MULTIVITAMINS,THER W-MINERALS TABLET GT SCH (08:19)
[2017-07-29] MEDS: SPIRONOLACTONE 25MG TABLET PEG SCH (08:19)
[2017-07-29] MEDS: PHENYTOIN 100 MG/4 ML UDC NG SCH ×2 (08:19→17:42)
[2017-07-29] MEDS: ZINC SULFATE 220 MG ( 50 ) CAPSULE GT SCH (08:19)
[2017-07-29] MEDS: FUROSEMIDE 20MG/2ML VIAL IVP SCH (08:19)
[2017-07-29] MEDS: LEVETIRACETAM 500MG/5ML CUP PO SCH ×2 (08:20→21:08)
[2017-07-29] MEDS ORDERED: BARIUM SULFATE 176 GM SUSP.RECON ONE (09:07)
[2017-07-30] VITALS (12 sets, daily range): BP systolic 130–164; BP diastolic 74–93
[2017-07-30] MEDS: HYDRALAZINE 20MG/ML VIAL IV PRN (02:00)
[2017-07-30] MEDS: IPRATROPIUM/ALBUTEROL 0.5-3(2.5)MG/3ML NEB HHN SCH ×5 (03:14→20:13)
[2017-07-30] MEDS: AMLODIPINE 2.5MG TABLET PEG SCH ×4 (05:52→23:08)
[2017-07-30] MEDS: TERAZOSIN HCL 5MG CAPSULE PEG SCH ×3 (05:52→21:07)
[2017-07-30] MEDS: MINOXIDIL 2.5MG TABLET PEG SCH ×4 (05:52→23:07)
[2017-07-30] MEDS: METOPROLOL TARTRATE 50MG TABLET PEG SCH ×4 (05:53→23:08)
[2017-07-30] MEDS: HYDRALAZINE HCL 50MG TABLET PEG SCH ×4 (05:53→23:08)
[2017-07-30 07:53] LABS: BASOPHILS % 1.6 % (0.0-2.0); EOSINOPHILS % 6.4 % (0.0-5.0); HEMATOCRIT. 30.9 % (42.0-52.0); HEMOGLOBIN. 10.9 g/dL (14.0-18.0); LYMPHOCYTES % 29.2 % (20.0-50.0); MEAN CORPUSCULAR HEMOGLOBIN 33.3 pg (28.0-32.0); MEAN CORPUSCULAR VOLUME 94.7 fL (80.0-94.0); MEAN PLATELET VOLUME 8.8 fl (7.4-10.4); MONOCYTES % 8.6 % (2.0-8.0); NEUTROPHILS % 54.2 % (40.0-76.0); PLATELET 184 x1000/uL (130-400); RED BLOOD CELL COUNT 3.26 mill/uL (4.7-6.1); RED CELL DISTRIBUTION WIDTH 19.4 % (11.6-14.6)
[2017-07-30] MEDS: FUROSEMIDE 20MG/2ML VIAL IVP SCH (08:18)
[2017-07-30] MEDS: ZINC SULFATE 220 MG ( 50 ) CAPSULE GT SCH (08:19)
[2017-07-30] MEDS: SPIRONOLACTONE 25MG TABLET PEG SCH (08:19)
[2017-07-30] MEDS: MULTIVITAMINS,THER W-MINERALS TABLET GT SCH (08:19)
[2017-07-30] MEDS: LACTOBACILLUS GG CAPSULE PO SCH (08:19)
[2017-07-30] MEDS: PHENYTOIN 100 MG/4 ML UDC NG SCH ×2 (08:20→17:06)
[2017-07-30] MEDS: LEVETIRACETAM 500MG/5ML CUP PO SCH ×2 (08:20→20:41)
[2017-07-30 08:45] LABS: CARBON DIOXIDE 34 mEq/L (21-32); CHLORIDE 97 mEq/L (98-107)
[2017-07-30] MEDS: ACETAMINOPHEN 650MG/20.3ML UDC PO PRN (09:34)
[2017-07-30] MEDS: ONDANSETRON HCL 4MG/2ML VIAL IV PRN (09:34)
[2017-07-30] MEDS: ASCORBIC ACID 500 MG TABLET GT SCH (10:29)
[2017-07-31] VITALS (13 sets, daily range): BP systolic 130–183; BP diastolic 74–115
[2017-07-31] MEDS: IPRATROPIUM/ALBUTEROL 0.5-3(2.5)MG/3ML NEB HHN SCH ×6 (00:19→20:46)
[2017-07-31] MEDS: ONDANSETRON HCL 4MG/2ML VIAL IV PRN (03:27)
[2017-07-31] MEDS: METOPROLOL TARTRATE 50MG TABLET PEG SCH ×4 (05:03→23:06)
[2017-07-31] MEDS: HYDRALAZINE HCL 50MG TABLET PEG SCH ×4 (05:03→23:05)
[2017-07-31] MEDS: AMLODIPINE 2.5MG TABLET PEG SCH ×4 (05:04→23:05)
[2017-07-31] MEDS: MINOXIDIL 2.5MG TABLET PEG SCH ×4 (05:04→23:05)
[2017-07-31] MEDS: TERAZOSIN HCL 5MG CAPSULE PEG SCH ×3 (05:04→21:13)
[2017-07-31] MEDS: PHENYTOIN 100 MG/4 ML UDC NG SCH ×2 (08:27→17:48)
[2017-07-31] MEDS: LEVETIRACETAM 500MG/5ML CUP PO SCH ×2 (08:27→21:13)
[2017-07-31] MEDS: FUROSEMIDE 20MG/2ML VIAL IVP SCH (08:27)
[2017-07-31] MEDS: ZINC SULFATE 220 MG ( 50 ) CAPSULE GT SCH (08:28)
[2017-07-31] MEDS: ASCORBIC ACID 500 MG TABLET GT SCH (08:28)
[2017-07-31] MEDS: LACTOBACILLUS GG CAPSULE PO SCH (08:28)
[2017-07-31] MEDS: MULTIVITAMINS,THER W-MINERALS TABLET GT SCH (08:28)
[2017-07-31] MEDS: SPIRONOLACTONE 25MG TABLET PEG SCH (08:28)
[2017-08-01] VITALS (12 sets, daily range): BP systolic 135–168; BP diastolic 81–95
[2017-08-01] MEDS: ACETAMINOPHEN 650MG/20.3ML UDC PO PRN ×2 (00:52→15:34)
[2017-08-01] MEDS: IPRATROPIUM/ALBUTEROL 0.5-3(2.5)MG/3ML NEB HHN SCH ×6 (01:02→21:13)
[2017-08-01] MEDS: AMLODIPINE 2.5MG TABLET PEG SCH ×4 (05:16→23:24)
[2017-08-01] MEDS: METOPROLOL TARTRATE 50MG TABLET PEG SCH ×4 (05:16→23:24)
[2017-08-01] MEDS: TERAZOSIN HCL 5MG CAPSULE PEG SCH ×3 (05:17→21:09)
[2017-08-01] MEDS: HYDRALAZINE HCL 50MG TABLET PEG SCH ×4 (05:17→23:25)
[2017-08-01] MEDS: MINOXIDIL 2.5MG TABLET PEG SCH ×4 (05:17→23:24)
[2017-08-01] MEDS: ASCORBIC ACID 500 MG TABLET GT SCH (08:26)
[2017-08-01] MEDS: FUROSEMIDE 20MG/2ML VIAL IVP SCH (08:26)
[2017-08-01] MEDS: MULTIVITAMINS,THER W-MINERALS TABLET GT SCH (08:26)
[2017-08-01] MEDS: ZINC SULFATE 220 MG ( 50 ) CAPSULE GT SCH (08:26)
[2017-08-01] MEDS: LACTOBACILLUS GG CAPSULE PO SCH (08:27)
[2017-08-01] MEDS: SPIRONOLACTONE 25MG TABLET PEG SCH (08:27)
[2017-08-02] VITALS (12 sets, daily range): BP systolic 113–172; BP diastolic 63–100
[2017-08-02] MEDS: IPRATROPIUM/ALBUTEROL 0.5-3(2.5)MG/3ML NEB HHN SCH ×6 (00:41→20:27)
[2017-08-02] MEDS: TERAZOSIN HCL 5MG CAPSULE PEG SCH ×3 (05:17→21:18)
[2017-08-02] MEDS: METOPROLOL TARTRATE 50MG TABLET PEG SCH ×4 (05:17→23:48)
[2017-08-02] MEDS: MINOXIDIL 2.5MG TABLET PEG SCH ×4 (05:17→23:47)
[2017-08-02] MEDS: AMLODIPINE 2.5MG TABLET PEG SCH ×4 (05:17→23:47)
[2017-08-02] MEDS: HYDRALAZINE HCL 50MG TABLET PEG SCH ×4 (05:17→23:48)
[2017-08-02 05:45] LABS: BASOPHILS % 0.9 % (0.0-2.0); EOSINOPHILS % 3.7 % (0.0-5.0); LYMPHOCYTES % 23.6 % (20.0-50.0); MEAN CORPUSCULAR HEMOGLOBIN 33.5 pg (28.0-32.0); MEAN CORPUSCULAR VOLUME 94.6 fL (80.0-94.0); MEAN PLATELET VOLUME 8.5 fl (7.4-10.4); MONOCYTES % 9.4 % (2.0-8.0); NEUTROPHILS % 62.4 % (40.0-76.0); PLATELET 175 x1000/uL (130-400); RED BLOOD CELL COUNT 3.28 mill/uL (4.7-6.1); RED CELL DISTRIBUTION WIDTH 18.9 % (11.6-14.6)
[2017-08-02] MEDS: FUROSEMIDE 20MG/2ML VIAL IVP SCH (08:14)
[2017-08-02] MEDS: ASCORBIC ACID 500 MG TABLET GT SCH (08:14)
[2017-08-02] MEDS: LACTOBACILLUS GG CAPSULE PO SCH (08:14)
[2017-08-02] MEDS: SPIRONOLACTONE 25MG TABLET PEG SCH (08:15)
[2017-08-02 08:16] LABS: CARBON DIOXIDE 32 mEq/L (21-32); CHLORIDE 99 mEq/L (98-107)
[2017-08-02] MEDS: ACETAMINOPHEN 650MG/20.3ML UDC PO PRN (11:48)
[2017-08-03] VITALS (11 sets, daily range): BP systolic 132–170; BP diastolic 69–97
[2017-08-03] MEDS: IPRATROPIUM/ALBUTEROL 0.5-3(2.5)MG/3ML NEB HHN SCH ×6 (00:40→20:07)
[2017-08-03] MEDS: AMLODIPINE 2.5MG TABLET PEG SCH ×4 (05:37→23:54)
[2017-08-03] MEDS: MINOXIDIL 2.5MG TABLET PEG SCH ×4 (05:37→23:55)
[2017-08-03] MEDS: HYDRALAZINE HCL 50MG TABLET PEG SCH ×4 (05:38→23:55)
[2017-08-03] MEDS: TERAZOSIN HCL 5MG CAPSULE PEG SCH ×3 (05:38→21:09)
[2017-08-03] MEDS: METOPROLOL TARTRATE 50MG TABLET PEG SCH ×4 (06:09→23:54)
[2017-08-03] MEDS: SPIRONOLACTONE 25MG TABLET PEG SCH (08:42)
[2017-08-03] MEDS: FUROSEMIDE 20MG/2ML VIAL IVP SCH (08:42)
[2017-08-03] MEDS: LACTOBACILLUS GG CAPSULE PO SCH (08:42)
[2017-08-03] MEDS: ASCORBIC ACID 500 MG TABLET GT SCH (08:42)
[2017-08-03] MEDS: PHENYTOIN 100 MG/4 ML UDC GT SCH ×2 (11:04→20:38)
[2017-08-03] MEDS: LEVETIRACETAM 500MG/5ML CUP GT SCH ×2 (11:04→20:38)
[2017-08-04] VITALS (9 sets, daily range): BP systolic 108–170; BP diastolic 60–92
[2017-08-04] MEDS: IPRATROPIUM/ALBUTEROL 0.5-3(2.5)MG/3ML NEB HHN SCH ×4 (00:25→13:00)
[2017-08-04] MEDS: METOPROLOL TARTRATE 50MG TABLET PEG SCH ×2 (05:45→13:04)
[2017-08-04] MEDS: TERAZOSIN HCL 5MG CAPSULE PEG SCH ×2 (05:45→13:03)
[2017-08-04] MEDS: HYDRALAZINE HCL 50MG TABLET PEG SCH ×2 (05:46→13:03)
[2017-08-04] MEDS: AMLODIPINE 2.5MG TABLET PEG SCH ×2 (05:47→13:04)
[2017-08-04] MEDS: MINOXIDIL 2.5MG TABLET PEG SCH ×2 (05:47→13:03)
[2017-08-04 06:34] LABS: BASOPHILS % 1.2 % (0.0-2.0); EOSINOPHILS % 9.5 % (0.0-5.0); HEMOGLOBIN. 11.2 g/dL (14.0-18.0); LYMPHOCYTES % 33.4 % (20.0-50.0); MEAN CORPUSCULAR HEMOGLOBIN 32.5 pg (28.0-32.0); MEAN CORPUSCULAR VOLUME 95.4 fL (80.0-94.0); MEAN PLATELET VOLUME 8.8 fl (7.4-10.4); MONOCYTES % 8.4 % (2.0-8.0); NEUTROPHILS % 47.5 % (40.0-76.0); PLATELET 194 x1000/uL (130-400); RED BLOOD CELL COUNT 3.46 mill/uL (4.7-6.1); RED CELL DISTRIBUTION WIDTH 18.6 % (11.6-14.6)
[2017-08-04 07:42] LABS: CARBON DIOXIDE 32 mEq/L (21-32); CHLORIDE 99 mEq/L (98-107)
[2017-08-04] MEDS: SPIRONOLACTONE 25MG TABLET PEG SCH (08:17)
[2017-08-04] MEDS: ASCORBIC ACID 500 MG TABLET GT SCH (08:17)
[2017-08-04] MEDS: LEVETIRACETAM 500MG/5ML CUP GT SCH (08:17)
[2017-08-04] MEDS: PHENYTOIN 100 MG/4 ML UDC GT SCH (08:17)
[2017-08-04] MEDS: LACTOBACILLUS GG CAPSULE PO SCH (08:18)
[2017-08-04] MEDS: FUROSEMIDE 20MG/2ML VIAL IVP SCH (08:18)
== END 2017-08-04 15:50 | DRG 25 ==
LOC: 5EST 17:19 → MICUNO 04-16 12:01 → 5EST 04-25 17:58 → CVICU 05-11 14:10 → 5EST 05-14 16:40 → MICUNO 05-27 08:50 → 5EST 05-31 14:25
PROVIDERS: ADMIT Family Medicine Adult Medicine; ATTEND Family Medicine Adult Medicine
PROC: 5A1955Z Respiratory Ventilation, Greater than 96 Consecutive Hours (ICD-10-PCS; 2017-04-15)
PROC: 00160J6 Bypass Cerebral Ventricle to Peritoneal Cavity with Synthetic Substitute, Open Approach (ICD-10-PCS; 2017-04-16)
PROC: 00H633Z Insertion of Infusion Device into Cerebral Ventricle, Percutaneous Approach (ICD-10-PCS; 2017-04-16)
PROC: 009600Z Drainage of Cerebral Ventricle with Drainage Device, Open Approach (ICD-10-PCS; principal; 2017-04-16 09:00)
PROC: 02HV33Z Insertion of Infusion Device into Superior Vena Cava, Percutaneous Approach (ICD-10-PCS; 2017-04-18)
PROC: B548ZZA Ultrasonography of Superior Vena Cava, Guidance (ICD-10-PCS; 2017-04-18)
PROC: 30233N1 Transfusion of Nonautologous Red Blood Cells into Peripheral Vein, Percutaneous Approach (ICD-10-PCS; 2017-05-13)
PROC: 4A10X4Z Monitoring of Central Nervous Electrical Activity, External Approach (ICD-10-PCS; 2017-05-26)
PROC: 00C40ZZ Extirpation of Matter from Intracranial Subdural Space, Open Approach (ICD-10-PCS; 2017-05-27)
PROC: 00U207Z Supplement Dura Mater with Autologous Tissue Substitute, Open Approach (ICD-10-PCS; 2017-05-27)
PROC: 00H632Z Insertion of Monitoring Device into Cerebral Ventricle, Percutaneous Approach (ICD-10-PCS; 2017-05-27)
PROC: 4A103BD Monitoring of Intracranial Pressure, Percutaneous Approach (ICD-10-PCS; 2017-05-27)
PROC: 0DH63UZ Insertion of Feeding Device into Stomach, Percutaneous Approach (ICD-10-PCS; 2017-07-03)
DX: G91.2 (Idiopathic) normal pressure hydrocephalus (principal); J96.20 Acute and chronic respiratory failure, unspecified whether with hypoxia or hypercapnia; I26.99 Other pulmonary embolism without acute cor pulmonale; I61.9 Nontraumatic intracerebral hemorrhage, unspecified; K72.00 Acute and subacute hepatic failure without coma; A41.9 Sepsis, unspecified organism; G92 Toxic encephalopathy; Z99.11 Dependence on respirator [ventilator] status; L89.154 Pressure ulcer of sacral region, stage 4; S06.5X9A Traumatic subdural hemorrhage with loss of consciousness of unspecified duration, initial encounter; E87.0 Hyperosmolality and hypernatremia; J98.11 Atelectasis; L97.419 Non-pressure chronic ulcer of right heel and midfoot with unspecified severity; E46 Unspecified protein-calorie malnutrition; J84.9 Interstitial pulmonary disease, unspecified; K94.23 Gastrostomy malfunction; N39.0 Urinary tract infection, site not specified; J90 Pleural effusion, not elsewhere classified; M86.8X8 Other osteomyelitis, other site; Z68.1 Body mass index [BMI] 19.9 or less, adult; D53.9 Nutritional anemia, unspecified; I10 Essential (primary) hypertension; I25.10 Atherosclerotic heart disease of native coronary artery without angina pectoris; I25.2 Old myocardial infarction; F41.9 Anxiety disorder, unspecified; G93.89 Other specified disorders of brain; I80.8 Phlebitis and thrombophlebitis of other sites; K29.60 Other gastritis without bleeding; K59.00 Constipation, unspecified; N40.0 Benign prostatic hyperplasia without lower urinary tract symptoms; R13.10 Dysphagia, unspecified; R56.9 Unspecified convulsions; R74.0 Nonspecific elevation of levels of transaminase and lactic acid dehydrogenase [LDH]; J44.9 Chronic obstructive pulmonary disease, unspecified; G96.19 Other disorders of meninges, not elsewhere classified; D18.1 Lymphangioma, any site; Y83.8 Other surgical procedures as the cause of abnormal reaction of the patient, or of later complication, without mention of misadventure at the time of the procedure; Y92.89 Other specified places as the place of occurrence of the external cause; R94.01 Abnormal electroencephalogram [EEG]; R58 Hemorrhage, not elsewhere classified; Z79.82 Long term (current) use of aspirin; Z79.899 Other long term (current) drug therapy; Z74.01 Bed confinement status; Z87.440 Personal history of urinary (tract) infections; Z93.0 Tracheostomy status; Z86.73 Personal history of transient ischemic attack (TIA), and cerebral infarction without residual deficits
CPT/HCPCS: 36415; 36569; 36600; 70450; 70551; 71010; 71275; 72195; 74230; 76937; 78580; 80048; 80053; 80076; 80185; 80202; 81001; 82270; 82375; 82550; 82553; 82607; 82668; 82728; 82746; 82805; 82945; 82962; 83036; 83540; 83550; 83690; 83735; 83880; 84100; 84157; 84443; 84484; 85014; 85018; 85025; 85027; 85610; 85651; 85730; 86140; 86635; 86850; 86900; 86920; 87040; 87070; 87075; 87086; 87205; 87493; 92523; 92610; 92611; 93005; 93306; 93971; 94002; 94003; 94640; 94667; 95816; 97110; 97112; 97116; 97163; 97164; 97166; 97168; 97530; 97535; A4216; A6261; C1713; C1725; C1750; C1758; C9113; J0171; J0360; J0690; J1165; J1630; J1644; J1650; J1940; J1953; J2060; J2250; J2270; J2405; J2543; J2704; J3010; J3370; J3490; J7030; J7040; J7050; J7060; J7070; J7120; J7121; J7608; J7611; J7620; P9016; Q9967; A4315